=== PATIENT | female | born 1940 | race African-American/Black ===

== ENCOUNTER 2020-05-23 18:50 | Inpatient (IN) | payer OTHER, MEDICAID, SELFPAY ==
[2020-05-23] VITALS (8 sets, daily range): BP systolic 86–107; BP diastolic 47–66; PULSE 87–100; RESP 12–20; TEMP 36.6–37.2; O2SAT 93–99; BMI 35.7
--- NOTE | 2020-05-23 19:01 | ED_ITS ---
HPI - Syncope General Chief Complaint: Upper Respiratory Symptoms Stated Complaint: syncopal episode Time Seen by Provider: 05/23/20 19:33 Source: EMS Mode of arrival: EMS History of Present Illness HPI narrative: 80-year-old female presents from [facility] past medical history of hypothyroidism, hypertension, anemia, depression, hemorrhoids and constipation, cognitive impairment, dementia, erosive gastritis, and insomnia presents for syncopal episode. Per nursing report says the resident was found on her flopped over, stated she was sitting in her chair about to eat dinner and became dizzy. Patient reported to the nurse that she fainted while she was in her chair, when she woke up she transferred herself to her bed or nursing found her to be stable. She was noted to not be at her baseline mental status. She was sent in to the emergency department for evaluation for suspected syncopal episode. Patient is DNR DNI, is able to answer questions at time, nose with the date is and where she is. She does report feeling short of breath since Tuesday, denies fevers and chills, chest pain or pressure, palpitations, abdominal pain, abdominal distention, dysuria and edema. MD complaint: loss of consciousness and felt faint Onset (ago): hour(s) (Within the hour of arrival) -: second(s) Prodromal symptoms: none Witnessed: No Context: at rest Injuries sustained associated with event: none Current symptoms: none Treatments prior to arrival: none Related Data Home Medications Medication Instructions Recorded Confirmed cholecalciferol (vitamin D3) 25 mcg PO DAILY 05/23/20 05/23/20 [Vitamin D3] docusate sodium [Colace] 100 mg PO BID 05/23/20 05/23/20 hydrochlorothiazide 25 mg PO DAILY 05/23/20 05/23/20 levothyroxine 50 mcg PO DAILY 05/23/20 05/23/20 lisinopril 20 mg PO DAILY 05/23/20 05/23/20 metoprolol tartrate [Lopressor] 100 mg PO BID 05/23/20 05/23/20 pantoprazole 20 mg PO DAILY 05/23/20 05/23/20 polyvinyl alcohol [Artificial 1 drp OPHTHALMIC (EYE) BID 05/23/20 05/23/20 Tears (polyvin alc)] polyvinyl alcohol [Artificial 1 drp OPHTHALMIC (EYE) TID PRN 05/23/20 05/23/20 Tears (polyvin alc)] simvastatin 10 mg PO BEDTIME 05/23/20 05/23/20 trazodone 50 mg PO BEDTIME 05/23/20 05/23/20 Allergies Allergy/AdvReac Type Severity Reaction Status Date / Time From CELEXA Allergy Unknown UNKNOWN Uncoded 02/28/20 18:03 Review of Systems Review of Systems: Constitutional: No Fever, No Chills ENT/Mouth: No Hoarseness, No sore throat, No Rhinorrhea Eyes: No Redness, No Discharge, No Vision Changes Cardiovascular: No Chest Pain, positive SOB, positive Dyspnea on Exertion, No Edema Respiratory: No Cough, No Sputum, no Wheezing, Gastrointestinal: No Nausea, No Vomiting, No Diarrhea, No abdominal Pain Genitourinary: No Dysuria, No Hematuria Musculoskeletal: No joint pain, No Myalgias Skin: No rash Neuro: No Weakness, No Numbness, No Headache Psych: No anxiety, depression Heme/Lymph: No Bruising, No Bleeding Endocrine: No Polyuria, No Polydipsia Yes all other systems are reviewed and are negative [facility] Past Medical History Attestation statement: The following information was validated with the patient. Source: old records reviewed and nursing notes reviewed Social History Social History Smoked in Last 30 Days: No Advance Directives: No Advance Directives Information Provided: Yes Physical Exam Vital Signs: Vital Signs: Last Vital Signs Temp 99.0 F 05/23/20 22:00 Pulse 87 05/23/20 23:27 Resp 16 05/23/20 23:27 BP 106/44 L 05/24/20 00:00 Pulse Ox 98 05/23/20 23:27 Body Mass Index 35.7 Appearance: Alert. Oriented X2. No acute distress. Eyes: Pupils equal, round and reactive to light. ENT: Pharynx normal. Neck: Normal inspection. Neck supple. CVS: Normal heart rate and rhythm. Pulses normal. Respiratory: No respiratory distress. Breath sounds normal. Abdomen: Soft and nontender. Skin: Skin warm and dry. Normal skin color. Normal skin turgor. Extremities: No lower extremity edema. Neuro: No motor deficit. No sensory deficit. Course Course Course Narrative: 80-year-old female presents for suspected syncopal episode, plan is to rule out ACS, infection, electrolyte abnormality, CBC, Chem 7, lactic acid, cultures, and urinalysis. At 10:15 p.m., Urinalysis positive for bacteria and leukocyte esterase. Plan of care is to admit for UTI sepsis. At 12:20 a.m. it was noted that her 2nd troponin was 354, discussion with hospitalist regarding care, call out to Dr. Arnold plan is to treat with Lovenox 1 mg/kg. Hospitalist updated. Reevaluation(s) Reevaluation #1: Labs drawn at this time. Multiple attempts, phlebotomy was needed for blood draw. Time: 20:32 Reevaluation #2: Lactic acid is elevated at 6.6, at this time we will start seps is fluids. Patient did receive 500 fluid bolus, received 300 mL of fluid on transit via EMS. Fluid resuscitation for 91.6 kg is 2800, has the remainder of 1500 mL of fluid to infuse. We do not have a source of infection at this time, discussion with dialysis technician for straight cath urinalysis this time. COVID and influenza negative. Time: 21:29 Consultations Consultation #1: Jose Eduardo Time: 22:15 MDM - Syncope Differential Diagnosis Differential diagnosis: Likely syncope due to orthostatic hypotension, vasovagal syncope, complete atrioventricular block and dehydration Medical Records Attestation: I reviewed the patient's medical records. Lab Data Attestation: I reviewed the patient's lab results. Result diagrams: 05/23/20 20:41 05/23/20 20:41 Labs: Lab Results 05/23/20 05/23/20 05/23/20 Range/Units 19:42 20:41 20:41 WBC 12.4 H (4.8-10.8) X10*3/uL RBC 3.71 L (4.20-5.50) X10*6/uL Hgb 10.0 L (12.0-16.0) g/dl Hct 33.4 L (37-47) % MCV 90.0 (80-98) fL MCH 27.0 (27.0-33.0) pg MCHC 29.9 L (31.0-35.0) g/dl RDW 15.9 (11.0-16.0) % Plt Count 140 L (160-400) X10*3/uL MPV 10.0 (9.4-12.3) fL Immature Gran % (Auto) 1.0 H (0.0-0.4) % Neut % (Auto) 79.1 H (45-73) % Lymph % (Auto) 13.5 L (20-40) % [place] % (Auto) 6.0 (2-11) % Eos % (Auto) 0.2 (0-4) % Baso % (Auto) 0.2 (0-2) % Lymph # (Auto) 1.7 (1.2-4.9) X10*3/uL [place] # (Auto) 0.8 (0.1-1.2) X10*3/uL Eos # (Auto) 0.0 (0.0-0.4) X10*3/uL Baso # (Auto) 0.0 (0.0-0.2) X10*3/uL Abs Immat Gran (auto) 0.12 H (0.00-0.03) X10*3/uL Absolute Neuts (auto) 9.8 H (2.0-8.3) X10*3/uL Absolute Nucleated RBC 0.000 (0.0-0.012) X10*3/uL Nucleated RBC % (auto) 0.0 (0.0-0.2) /100WBC Sodium 142 (135-145) mmol/L Potassium 4.2 (3.3-5.1) mmol/l Chloride 106 (96-108) mmol/L Carbon Dioxide 17 L (22-29) mmol/L Anion Gap 23 H (12-20) BUN 48 H (9-16) mg/dL Creatinine 2.26 H (0.5-1.4) mg/dL Estim Creat Clear Calc 20.9 Estimated GFR 21 Random Glucose 163 H (60-115) mg/dL Lactic Acid (0.5-2.0) mmol/L Calcium 8.9 (8.4-10.2) mg/dL Troponin I High Sens (<3.5-17.0) ng/L Urine Color Urine Appearance Urine pH (5.0-8.0) Ur Specific [place] (1.005-1.025) Urine Protein (NEG-TRACE) MG/DL Urine Glucose (UA) (NEG) MG/DL Urine Ketones (NEG) MG/DL Urine Blood (NEG) Urine Nitrite (NEG) Ur Leukocyte Esterase (NEG) Urine RBC (0) /HPF Urine WBC (0-4) /HPF Ur Squamous Epith Cells /LPF Urine Bacteria /LPF Coronavirus (PCR) NEGATIVE (Negative) Influenza Type A (PCR) NEGATIVE (Negative) Influenza Type B (PCR) NEGATIVE (Negative) RSV RNA Qual (PCR) NEGATIVE (Negative) 05/23/20 05/23/20 05/23/20 Range/Units 20:41 20:41 21:37 WBC (4.8-10.8) X10*3/uL RBC (4.20-5.50) X10*6/uL Hgb (12.0-16.0) g/dl Hct (37-47) % MCV (80-98) fL MCH (27.0-33.0) pg MCHC (31.0-35.0) g/dl RDW (11.0-16.0) % Plt Count (160-400) X10*3/uL MPV (9.4-12.3) fL Immature Gran % (Auto) (0.0-0.4) % Neut % (Auto) (45-73) % Lymph % (Auto) (20-40) % [place] % (Auto) (2-11) % Eos % (Auto) (0-4) % Baso % (Auto) (0-2) % Lymph # (Auto) (1.2-4.9) X10*3/uL [place] # (Auto) (0.1-1.2) X10*3/uL Eos # (Auto) (0.0-0.4) X10*3/uL Baso # (Auto) (0.0-0.2) X10*3/uL Abs Immat Gran (auto) (0.00-0.03) X10*3/uL Absolute Neuts (auto) (2.0-8.3) X10*3/uL Absolute Nucleated RBC (0.0-0.012) X10*3/uL Nucleated RBC % (auto) (0.0-0.2) /100WBC Sodium (135-145) mmol/L Potassium (3.3-5.1) mmol/l Chloride (96-108) mmol/L Carbon Dioxide (22-29) mmol/L Anion Gap (12-20) BUN (9-16) mg/dL Creatinine (0.5-1.4) mg/dL Estim Creat Clear Calc Estimated GFR Random Glucose (60-115) mg/dL Lactic Acid 6.6 H* (0.5-2.0) mmol/L Calcium (8.4-10.2) mg/dL Troponin I High Sens 155.7 H (<3.5-17.0) ng/L Urine Color YELLOW Urine Appearance HAZY Urine pH 5.5 (5.0-8.0) Ur Specific [place] 1.025 (1.005-1.025) Urine Protein 1+ H (NEG-TRACE) MG/DL Urine Glucose (UA) NEG (NEG) MG/DL Urine Ketones NEG (NEG) MG/DL Urine Blood 1+ H (NEG) Urine Nitrite NEG (NEG) Ur Leukocyte Esterase TRACE H (NEG) Urine RBC 0-2 (0) /HPF Urine WBC 0-2 (0-4) /HPF Ur Squamous Epith Cells TRACE /LPF Urine Bacteria 4+ /LPF Coronavirus (PCR) (Negative) Influenza Type A (PCR) (Negative) Influenza Type B (PCR) (Negative) RSV RNA Qual (PCR) (Negative) Imaging Data Chest x-ray: Attestation: I personally reviewed and interpreted this imaging study as follows: Radiologist's impression: Blood Pressure : / mmHG Vent. Rate : 110 BPM Atrial Rate : 110 BPM P-R Int : 150 ms QRS Dur : 080 ms QT Int : 360 ms P-R-T Axes : 041 -28 -35 degrees QTc Int : 487 ms Sinus tachycardia with occasional Premature ventricular complexes Low voltage QRS Cannot rule out Anterior infarct , age undetermined Abnormal ECG When compared with ECG of 19-JUN-2010 15:07, Significant changes have occurred ECG Data ECG interpretation date: 05/23/20 ECG interpretation time: 19:26 Prior ECG tracings: available for review Interpretation: Blood Pressure : / mmHG Vent. Rate : 110 BPM Atrial Rate : 110 BPM P-R Int : 150 ms QRS Dur : 080 ms QT Int : 360 ms P-R-T Axes : 041 -28 -35 degrees QTc Int : 487 ms Sinus tachycardia with occasional Premature ventricular complexes Low voltage QRS Cannot rule out Anterior infarct , age undetermined Abnormal ECG When compared with ECG of 19-JUN-2010 15:07, Significant changes have occurred Critical Care Time Critical Care Time Critical Care Time: Yes Total Critical Care Time: 65 Attestation: I have personally provided critical care time exclusive of time spent on separately billable procedures. Time includes review of laboratory data, radiology results, discussion with consultants, and monitoring for potential decompensation. Interventions were performed as documented. Discharge Plan Discharge Clinical Impression: Acute UTI Sepsis Qualifiers: Sepsis type: sepsis due to unspecified organism Sepsis acute organ dysfunction status: with acute organ dysfunction Severe sepsis acute organ dysfunction type: acute renal failure Acute renal failure type: unspecified Severe sepsis shock status: without septic shock Qualified Code(s): A41.9 - Sepsis, unspecified organism Patient Disposition: Admitted As Inpatient
--- NOTE | 2020-05-23 19:01 | ECG_ITS ---
Test Reason : SYNCOPE Blood Pressure : / mmHG Vent. Rate : 110 BPM Atrial Rate : 110 BPM P-R Int : 150 ms QRS Dur : 080 ms QT Int : 360 ms P-R-T Axes : 041 -28 -35 degrees QTc Int : 487 ms Sinus tachycardia with occasional Premature ventricular complexes Low voltage QRS Cannot rule out Anterior infarct , age undetermined Diffuse ST-T changes, could be ischemia Abnormal ECG When compared with ECG of 19-JUN-2010 15:07, Significant changes have occurred Referred By: Kandace Vallecillo Electronically Signed By:MALKA LUNA
[2020-05-23] MEDS: 0.9 % Sodium Chloride 1,000 ML 500 ML IVCONT (19:20)
--- NOTE | 2020-05-23 20:00 | XR_ITS ---
EXAMINATION: XR CHEST CLINICAL INFORMATION: Syncope COMPARISON: None TECHNIQUE: Frontal portable view of the chest was obtained. 8:02 PM FINDINGS: Lungs are clear. No pulmonary vascular congestion. There is no pleural effusion. The heart size is normal. The cardiac and mediastinal contours are normal. There are calcifications of the thoracic aorta. There are multilevel degenerative changes of dorsal spine. XR/XR chest 1V IMPRESSION: Unremarkable examination.
[2020-05-23 20:33] LABS: Influenza A PCR NEGATIVE (Negative); Influenza B PCR NEGATIVE (Negative); Resp Syncy Virus RNA Qual PCR NEGATIVE (Negative); SARS COV2 PCR INHOUSE NEGATIVE (Negative)
[2020-05-23 20:49] LABS: Basophils Percent Auto 0.2 % (0-2); Eosinophils Percent Auto 0.2 % (0-4); Hematocrit 33.4 % (37-47); Imm Gran Abs Auto 0.12 X10*3/uL (0.00-0.03); Mean Corpuscular HGB Conc 29.9 g/dl (31.0-35.0); Neutrophils Percent Auto 79.1 % (45-73); PLT CLUMP 1; SCAN SMEAR FLAG 1
[2020-05-23 20:51] LABS: Lymphocytes Absolute Auto 1.7 X10*3/uL (1.2-4.9); Lymphocytes Percent Auto 13.5 % (20-40); MANUAL DIFF FLAG NO; Monocytes Absolute Auto 0.8 X10*3/uL (0.1-1.2); Neutrophils Absolute Auto 9.8 X10*3/uL (2.0-8.3); Platelet Count 140 X10*3/uL (160-400); Red Blood Count 3.71 X10*6/uL (4.20-5.50); Red Cell Distribution Width 15.9 % (11.0-16.0); White Blood Count 12.4 X10*3/uL (4.8-10.8)
[2020-05-23 21:27] LABS: Lactic Acid 6.6 mmol/L (0.5-2.0)
[2020-05-23] MEDS: 0.9 % Sodium Chloride 1,000 ML 999 ML IVCONT (21:32)
[2020-05-23 21:37] LABS: Anion Gap 23 (12-20); Blood Urea Nitrogen 48 mg/dL (9-16); Calcium 8.9 mg/dL (8.4-10.2); Carbon Dioxide 17 mmol/L (22-29); Chloride 106 mmol/L (96-108); Creatinine Clr Calc Pharmacy 20.9; Estimated Glomerular Filt Rate 21; Glucose Random 163 mg/dL (60-115); Potassium 4.2 mmol/l (3.3-5.1); Sodium 142 mmol/L (135-145); Troponin-I High Sensitivity 155.7 ng/L (<3.5-17.0)
[2020-05-23] MEDS: cefTRIAXone sodium 1 GM in 0.9 % Sodium Chloride 50 ML IV (21:43)
[2020-05-23 21:48] LABS: Glucose Urine UA NEG (NEG); Leukocyte Esterase Urine TRACE (NEG); Nitrite Urine NEG (NEG); PH 5.5 (5.0-8.0); Specific Gravity - Urine 1.025 (1.005-1.025); Urine Blood 1+ (NEG); Urine Ketones NEG (NEG); Urine Protein 1+ MG/DL (NEG-TRACE)
[2020-05-23 21:50] LABS: Appearance Urine HAZY; Color Urine YELLOW
[2020-05-23 21:59] LABS: Bacteria Urine 4+ /LPF; RBC Urine 0-2 /HPF (0); Squamous Epithelial Cell Urine TRACE /LPF; WBC Urine 0-2 /HPF (0-4)
[2020-05-23 22:48] LABS: Reflex Lactate? Lactic Acid Added
--- NOTE | 2020-05-23 23:11 | PC.NURSE ---
PT DIFFICULT LAB DRAW- REQUIRING PHLEBOTOMY TO ASSIST. WAITING FOR PHLEBOTOMY AT THIS TIME FOR REPEAT LACTIC AND TROP
[2020-05-24] VITALS (21 sets, daily range): BP systolic 89–139; BP diastolic 43–78; PULSE 68–87; RESP 16–21; TEMP 36.6–36.7; O2SAT 96–100
[2020-05-24 00:11] LABS: Troponin-I High Sensitivity 354.7 ng/L (<3.5-17.0)
[2020-05-24] MEDS: Enoxaparin Sodium 100 MG/ML SYRINGE 90 MG SUBCUT ×3 (00:55→23:14)
--- NOTE | 2020-05-24 01:52 | P.HPHOSP_ITS ---
History of Present Illness Date of Service: 05/23/20 Chief Complaint: Presyncope This is a very pleasant 80-year-old female hypothyroidism, hypertension, who presents to the hospital with complaints of weakness, chest tightness, mild shortness of breath. On my interview of the patient she reports that she has never been feeling so sick in her life before, she reports generally feeling sick since Tuesday, very vague about her symptoms but does endorse chest pain that centered mid 10, midsternal, pressure-like/tightness, nonradiating, severe, that is intermittent associated with mild shortness of breath. Patient also complaining of dizziness, reports that she had a fall at home due to her weakness, although denies any loss of consciousness, denies any palpitations prior to the fall, denies any change in vision or headache. Patient complaining of urinary frequency. Review of systems otherwise negative, Vitals are significant for temp of 97.8?, respiratory rate of 16, heart rate of 100, blood pressure of 98/57, satting 97% on room air Labs are significant for WBC count of 12.4, hemoglobin of 10, sodium of 142, potassium 4.2, anion gap 23, BUN of 48, creatinine of 2.261 (no previous to compare), lactic acid of 6.6, has to troponin of 155, followed by 2nd which was 354, UA that is positive for leukocyte Estrace and bacteria Chest x-ray negative Past medical history: Hypertension, hypothyroidism, hyperlipidemia Past surgical history: Denies Family history: Denies Social history: Comes from assisted living, denies tobacco alcohol or illicit drugs Review of Systems Review of Systems: Yes all other systems are reviewed and are negative [facility] Medical History Hyperlipidemia Hypertension Hypothyroidism Social History Smoked in Last 30 Days: No Advance Directives: No Advance Directives Information Provided: Yes Meds Allergies Allergy/AdvReac Type Severity Reaction Status Date / Time From CELEXA Allergy Unknown UNKNOWN Uncoded 02/28/20 18:03 Home Medications Medication Instructions Recorded Confirmed Type cholecalciferol (vitamin D3) 25 mcg PO DAILY 05/23/20 05/23/20 History [Vitamin D3] docusate sodium [Colace] 100 mg PO BID 05/23/20 05/23/20 History hydrochlorothiazide 25 mg PO DAILY 05/23/20 05/23/20 History levothyroxine 50 mcg PO DAILY 05/23/20 05/23/20 History lisinopril 20 mg PO DAILY 05/23/20 05/23/20 History metoprolol tartrate [Lopressor] 100 mg PO BID 05/23/20 05/23/20 History pantoprazole 20 mg PO DAILY 05/23/20 05/23/20 History polyvinyl alcohol [Artificial 1 drp OPHTHALMIC (EYE) BID 05/23/20 05/23/20 History Tears (polyvin alc)] polyvinyl alcohol [Artificial 1 drp OPHTHALMIC (EYE) TID PRN 05/23/20 05/23/20 History Tears (polyvin alc)] simvastatin 10 mg PO BEDTIME 05/23/20 05/23/20 History trazodone 50 mg PO BEDTIME 05/23/20 05/23/20 History Physical Exam Vital Signs and Narrative: Vital Signs: Last Vital Signs Temp 99.0 F 05/23/20 22:00 Pulse 80 05/24/20 01:42 Resp 16 05/24/20 01:42 BP 90/43 L 05/24/20 01:42 Pulse Ox 100 05/24/20 01:42 Body Mass Index 35.7 Const: General: cooperative and no acute distress Orientation/consciousness: patient oriented x3 Eyes: General: appearance normal, both eyes and all related structures Pupils: Equal, round and reactive pupils present Resp: Effort & Inspection: normal respiratory effort and able to speak in complete sentences Cardio: Rate: regular rate Rhythm: regular rhythm GI: Palpation (GI): Soft to palpation Auscultation: normal bowel sounds Skin: General skin exam: no rashes or lesions noted Neuro: General: patient oriented x3 Cranial nerves: Yes Equal, round and reactive pupils present Cognition (Neuro): normal cognition Extrem: General: Yes normal to inspection and Yes no pedal edema Results Labs CBC and Chem 7: 05/23/20 20:41 05/23/20 20:41 Labs: Laboratory Results - last 24 hr 05/23/20 05/23/20 05/23/20 19:42 20:41 20:41 MCV 90.0 MCH 27.0 MCHC 29.9 L RDW 15.9 Plt Count 140 L MPV 10.0 Immature Gran % (Auto) 1.0 H Neut % (Auto) 79.1 H Lymph % (Auto) 13.5 L [place] % (Auto) 6.0 Eos % (Auto) 0.2 Baso % (Auto) 0.2 Lymph # (Auto) 1.7 [place] # (Auto) 0.8 Eos # (Auto) 0.0 Baso # (Auto) 0.0 Abs Immat Gran (auto) 0.12 H Absolute Neuts (auto) 9.8 H Absolute Nucleated RBC 0.000 Nucleated RBC % (auto) 0.0 Anion Gap 23 H Estim Creat Clear Calc 20.9 Estimated GFR 21 Random Glucose 163 H Lactic Acid Lactic Acid Fup @ 2Hr Calcium 8.9 Troponin I High Sens Urine Color Urine Appearance Urine pH Ur Specific [place] Urine Protein Urine Glucose (UA) Urine Ketones Urine Blood Urine Nitrite Ur Leukocyte Esterase Urine RBC Urine WBC Ur Squamous Epith Cells Urine Bacteria Coronavirus (PCR) NEGATIVE Influenza Type A (PCR) NEGATIVE Influenza Type B (PCR) NEGATIVE RSV RNA Qual (PCR) NEGATIVE 05/23/20 05/23/20 05/23/20 20:41 20:41 21:37 MCV MCH MCHC RDW Plt Count MPV Immature Gran % (Auto) Neut % (Auto) Lymph % (Auto) [place] % (Auto) Eos % (Auto) Baso % (Auto) Lymph # (Auto) [place] # (Auto) Eos # (Auto) Baso # (Auto) Abs Immat Gran (auto) Absolute Neuts (auto) Absolute Nucleated RBC Nucleated RBC % (auto) Anion Gap Estim Creat Clear Calc Estimated GFR Random Glucose Lactic Acid 6.6 H* Lactic Acid Fup @ 2Hr Calcium Troponin I High Sens 155.7 H Urine Color YELLOW Urine Appearance HAZY Urine pH 5.5 Ur Specific [place] 1.025 Urine Protein 1+ H Urine Glucose (UA) NEG Urine Ketones NEG Urine Blood 1+ H Urine Nitrite NEG Ur Leukocyte Esterase TRACE H Urine RBC 0-2 Urine WBC 0-2 Ur Squamous Epith Cells TRACE Urine Bacteria 4+ Coronavirus (PCR) Influenza Type A (PCR) Influenza Type B (PCR) RSV RNA Qual (PCR) 05/23/20 05/23/20 23:37 23:37 MCV MCH MCHC RDW Plt Count MPV Immature Gran % (Auto) Neut % (Auto) Lymph % (Auto) [place] % (Auto) Eos % (Auto) Baso % (Auto) Lymph # (Auto) [place] # (Auto) Eos # (Auto) Baso # (Auto) Abs Immat Gran (auto) Absolute Neuts (auto) Absolute Nucleated RBC Nucleated RBC % (auto) Anion Gap Estim Creat Clear Calc Estimated GFR Random Glucose Lactic Acid Lactic Acid Fup @ 2Hr 4.0 H* Calcium Troponin I High Sens 354.7 H D Urine Color Urine Appearance Urine pH Ur Specific [place] Urine Protein Urine Glucose (UA) Urine Ketones Urine Blood Urine Nitrite Ur Leukocyte Esterase Urine RBC Urine WBC Ur Squamous Epith Cells Urine Bacteria Coronavirus (PCR) Influenza Type A (PCR) Influenza Type B (PCR) RSV RNA Qual (PCR) Imaging Radiologist's Impressions: Impressions Chest X-Ray 05/23/20 20:00 IMPRESSION: Unremarkable examination. Assessment and Plan (1) Sepsis: Qualifiers: Acute renal failure type: unspecified Sepsis acute organ dysfunction status: with acute organ dysfunction Sepsis type: sepsis due to unspecified organism Severe sepsis acute organ dysfunction type: acute renal failure Severe sepsis shock status: without septic shock Qualified Code(s): A41.9 - Sepsis, unspecified organism; R65.20 - Severe sepsis without septic shock; N17.9 - Acute kidney failure, unspecified Status: Acute (2) Acute UTI: Status: Acute (3) NSTEMI (non-ST elevated myocardial infarction): Status: Acute (4) KASSIE (acute kidney injury): Status: Acute (5) Hypertension: Qualifiers: Hypertension type: essential hypertension Qualified Code(s): I10 - Essential (primary) hypertension Status: Acute (6) Hyperlipidemia: Qualifiers: Hyperlipidemia type: unspecified Qualified Code(s): E78.5 - Hyperlipidemia, unspecified Status: Acute (7) Hypothyroidism: Qualifiers: Hypothyroidism type: unspecified Qualified Code(s): E03.9 - Hypothyroidism, unspecified Status: Acute This is an 80 year female with PMH as above found to have sepsis secondary to UTI as well as NSTEMI # sepsis - meets sepsis criteria based on heart rate, leukocytosis, patient afebrile, does have hypotension which improved after fluid resuscitation - on arrival had a lactic acid of 6.6 - sources most likely urine UA is positive, chest x-ray is negative Plan: - was started on ceftriaxone will continue - follow urine and blood cultures - IV fluids # UTI - UA showing bacteria and leukocyte Estrace -will start patient on ceftriaxone - IV fluids # NSTEMI - had chest tightness, no EKG changes, elevated troponin - case was discussed with Cardiology by ED PA - patient will be started on Lovenox Plan: - Lovenox, aspirin - will obtain echocardiogram, admit to telemetry, - further Cardiology recommendation appreciated # KASSIE - most likely prerenal secondary to sepsis and UTI - will start patient on IV fluids and follow BMP # hypothyroidism - continue levothyroxine # hypertension - will hold the lisinopril and hydrochlorothiazide in the setting of KASSIE # hyperlipidemia -continue statin DVT prophylaxis: Lovenox
[2020-05-24 07:34] LABS: Lactic Acid 2.2 mmol/L (0.5-2.0)
[2020-05-24 07:39] LABS: B Type Natriuretic Peptide 1331 pg/mL (<100)
[2020-05-24 08:49] LABS: Alanine Aminotransferase 40 U/L (0-31); Albumin Level 4.3 g/dL (3.5-5.0); Alkaline Phosphatase 109 U/L (39-117); Aspartate Amino Transferase 55 U/L (5-31); Bilirubin Direct 0.2 mg/dL (0.0-0.5); Bilirubin Total 0.4 mg/dL (0.0-1.0); Total Protein 8.1 g/dL (6.5-8.0)
[2020-05-24 09:01] LABS: Reflex Lactate? Lactic Acid Added
--- NOTE | 2020-05-24 11:06 | P.PNIM_ITS ---
Subjective Subjective Date of Service: 05/24/20 Interval History: sob Cardiovascular Cardiovascular: Reports no additional cardiovascular complaints Gastrointestinal Gastrointestinal: Reports no additional gastrointestinal complaints Physical Exam Vital Signs: Vital Signs: Last Vital Signs Temp 98.0 F 05/24/20 04:00 Pulse 79 05/24/20 09:38 Resp 16 05/24/20 09:38 BP 132/78 05/24/20 09:38 Pulse Ox 98 05/24/20 09:38 Body Mass Index 35.7 General: AO X 3, no acute distress Resp: CTA bilateral CVS: S1,S2,RRR GI: soft, non tender, non distended Neuro: motor grossly intact Psych: appropriate affect Objective Data Current Medications Generic Name Dose Route Start Last Admin Trade Name Freq PRN Reason Stop Dose Admin Acetaminophen 650 mg 05/24/20 11:04 Acetaminophen 325 Mg Tablet PO Q6H PRN Pain, Mild (Pain Scale 1-3) Artificial Tears 1 drop 05/24/20 11:04 Artificial Tears 15 Ml Drops EYE-BOTH BID BAUDILIO Artificial Tears 1 drop 05/24/20 11:04 Artificial Tears 15 Ml Drops EYE-BOTH TID PRN Dry Eye(S) Aspirin 324 mg 05/24/20 11:04 Aspirin 81 Mg Tab.Chew PO 05/24/20 11:05 ONCE ONE Docusate Sodium 100 mg 05/24/20 11:04 Docusate Sodium 100 Mg Capsule PO BID BAUDILIO Docusate Sodium 100 mg 05/24/20 11:04 Docusate Sodium 100 Mg Capsule PO DAILY PRN Constipation Enoxaparin Sodium 90 mg 05/24/20 00:30 05/24/20 00:55 Enoxaparin Sodium 100 Mg/Ml Syringe 1 mg/kg (90 mg) 90 mg SUBCUT Administration Q12H [facility] Ceftriaxone Sodium 1 gm/ 50 mls @ 100 mls/hr 05/24/20 11:04 Sodium Chloride IV Q24H [facility] Lactated Ringer's 1,000 mls @ 100 mls/hr 05/24/20 11:04 Lr IVCONT .Q10H [facility] Levothyroxine Sodium 50 mcg 05/24/20 11:04 Levothyroxine Sodium 50 Mcg Tablet PO DAILY [facility] Metoprolol Tartrate 100 mg 05/24/20 11:04 Metoprolol Tartrate 100 Mg Tablet PO BID [facility] Protocol Non-Formulary Medication 20 mg 05/24/20 11:04 Pantoprazole PO DAILY [facility] Non-Formulary Medication 10 mg 05/24/20 21:00 Simvastatin PO BEDTIME [facility]UD[facility] Ondansetron HCl 4 mg 05/24/20 11:04 Ondansetron Hcl 4 Mg/2 Ml Vial IVPUSH Q8H PRN Nausea and Vomiting Pharmacy Consult 1 each 05/23/20 22:44 Consult Rx Perform Med Rec MISCELLANE ONCE PRN Consult order Sodium Chloride 3 ml 05/24/20 11:04 0.9 % Sodium Chloride Flush 3 Ml Syringe IVFLUSH QSHIFT [facility] Trazodone HCl 50 mg 05/24/20 21:00 Trazodone Hcl 50 Mg Tablet PO BEDTIME [facility] Vitamin D 25 mcg 05/24/20 11:04 Cholecalciferol (Vitamin D3) 25 Mcg Tablet PO DAILY [facility] Labs CBC & Chem 7: 05/23/20 20:41 05/23/20 20:41 Microbiology Microbiology Results: Microbiology 05/23/20 21:49 Urine clean catch - Clean Catch Midstream Urine Culture - Preliminary No growth to date. Assessment and Plan (1) Sepsis: Status: Acute (2) Acute UTI: Status: Acute (3) NSTEMI (non-ST elevated myocardial infarction): Status: Acute (4) KASSIE (acute kidney injury): Status: Acute (5) Hypertension: Status: Acute (6) Hyperlipidemia: Status: Acute (7) Hypothyroidism: Status: Acute Assessment and Plan: 80F presented with chest pain and sob Severe sepsis present on admission due to possible UTI Continue ceftriaxone Follow-up cultures NSTEMI Lovenox, aspirin, echo, statin, cardiology eval Presumed Acute kidney injury Monitor Hypothyroid Synthroid Hyperlipidemia Statin
[2020-05-24] MEDS: Cholecalciferol (Vitamin D3) 25 MCG TABLET PO (11:29)
[2020-05-24] MEDS: Omeprazole 20 MG CAPSULE.DR PO (11:29)
[2020-05-24] MEDS: Aspirin 81 MG TAB.CHEW 324 MG PO (11:29)
[2020-05-24] MEDS: Levothyroxine Sodium 50 MCG TABLET PO (11:29)
[2020-05-24] MEDS: Metoprolol Tartrate 100 MG TABLET PO ×2 (11:29→21:38)
[2020-05-24] MEDS: Docusate Sodium 100 MG CAPSULE PO ×2 (11:29→21:38)
[2020-05-24] MEDS: cefTRIAXone sodium 1 GM in 0.9 % Sodium Chloride 50 ML IV (11:47)
[2020-05-24] MEDS: Lactated Ringers 1,000 ML 100 ML IVCONT ×2 (11:48→23:13)
[2020-05-24 15:13] LABS: Basophils Percent Auto 0.1 % (0-2); Eosinophils Percent Auto 0.4 % (0-4); Hematocrit 29.4 % (37-47); Hemoglobin 8.9 g/dl (12.0-16.0); Imm Gran Abs Auto 0.02 X10*3/uL (0.00-0.03); Imm Gran Pct Auto 0.3 % (0.0-0.4); Lymphocytes Percent Auto 29.1 % (20-40); MANUAL DIFF FLAG NO; Mean Corpuscular HGB Conc 30.3 g/dl (31.0-35.0); Mean Corpuscular Hemoglobin 26.9 pg (27.0-33.0); Mean Corpuscular Volume 88.8 fL (80-98); Mean Platelet Volume 10.1 fL (9.4-12.3); Monocytes Absolute Auto 0.5 X10*3/uL (0.1-1.2); Monocytes Percent Auto 7.6 % (2-11); Neutrophils Absolute Auto 4.3 X10*3/uL (2.0-8.3); Neutrophils Percent Auto 62.5 % (45-73); Platelet Count 127 X10*3/uL (160-400); Red Blood Count 3.31 X10*6/uL (4.20-5.50); White Blood Count 6.9 X10*3/uL (4.8-10.8)
--- NOTE | 2020-05-24 15:18 | MHC.CM.PN ---
PT REPORTS SHE LIVES AT [facility] AND IS INDEPENDENT WITH SELF CARE AND AMBULATES WITH A WALKER. PT REPORTS SHE GOES TO THE [employer] [facility] FOR HER PRIMARY AND BEHAVIORAL HEALTH BUT HAS NOT BEEN ABLE TO GO TO HER DAY PROGRAM SINCE AUGUST. SHE REPORTS WHEN SHE WAS GOING A VAN TOOK HER. PT REPORTS SHE DOES NOT HAVE A HCP AND DECLINES TO HAVE T/W CONTACT ANYONE. CM WILL CALL [facility] TO CONFIRM THERE IS NO HCP IMM DELIVERED CURRENT DC PLAN IS TO RETURN TO [facility] VIA CHAIR VAN
[2020-05-24 15:39] LABS: Anion Gap 18 (12-20); Blood Urea Nitrogen 46 mg/dL (9-16); Calcium 8.1 mg/dL (8.4-10.2); Carbon Dioxide 17 mmol/L (22-29); Chloride 113 mmol/L (96-108); Estimated Glomerular Filt Rate 28; Glucose Random 110 mg/dL (60-115); Potassium 4.5 mmol/l (3.3-5.1); Sodium 143 mmol/L (135-145)
[2020-05-24] MEDS: 0.9 % Sodium Chloride Flush 3 ML SYRINGE IVFLUSH (15:39)
[2020-05-24] MEDS: Artificial Tears 15 ML DROPS 1 DROP EYE-BOTH ×4 (15:40→21:47)
[2020-05-24 15:42] LABS: B Type Natriuretic Peptide 1158 pg/mL (<100)
[2020-05-24] MEDS: traZODone HCL 50 MG TABLET PO (21:38)
[2020-05-24] MEDS: Atorvastatin Calcium 10 MG TABLET PO (21:39)
[2020-05-25] VITALS (7 sets, daily range): BP systolic 123–164; BP diastolic 62–78; PULSE 69–86; RESP 18–20; TEMP 36.4–37.1; O2SAT 94–98
--- NOTE | 2020-05-25 | ECG_ITS ---
Test Reason : N-STEMI Blood Pressure : / mmHG Vent. Rate : 069 BPM Atrial Rate : 069 BPM P-R Int : 150 ms QRS Dur : 072 ms QT Int : 434 ms P-R-T Axes : 049 -32 -50 degrees QTc Int : 465 ms Normal sinus rhythm Left axis deviation ST & T wave abnormality, consider anterior ischemia Abnormal ECG When compared to the previous EKG of 23 may 2020, ST-T changes less prominent Referred By: Malka Luna Electronically Signed By:MALKA LUNA
[2020-05-25] MEDS: Omeprazole 20 MG CAPSULE.DR PO (05:42)
[2020-05-25 07:35] LABS: MANUAL DIFF FLAG NO
[2020-05-25 07:39] LABS: Basophils Percent Auto 0.1 % (0-2); Eosinophils Absolute Auto 0.1 X10*3/uL (0.0-0.4); Hemoglobin 7.9 g/dl (12.0-16.0); Imm Gran Abs Auto 0.02 X10*3/uL (0.00-0.03); Imm Gran Pct Auto 0.3 % (0.0-0.4); Lymphocytes Absolute Auto 1.9 X10*3/uL (1.2-4.9); Mean Corpuscular HGB Conc 30.4 g/dl (31.0-35.0); Mean Corpuscular Volume 88.7 fL (80-98); Mean Platelet Volume 9.9 fL (9.4-12.3); Monocytes Absolute Auto 0.5 X10*3/uL (0.1-1.2); Monocytes Percent Auto 7.4 % (2-11); Neutrophils Absolute Auto 4.3 X10*3/uL (2.0-8.3); Neutrophils Percent Auto 63.2 % (45-73); Platelet Count 138 X10*3/uL (160-400); Red Blood Count 2.93 X10*6/uL (4.20-5.50); Red Cell Distribution Width 15.9 % (11.0-16.0); White Blood Count 6.9 X10*3/uL (4.8-10.8)
[2020-05-25 08:04] LABS: Anion Gap 17 (12-20); Blood Urea Nitrogen 37 mg/dL (9-16); Calcium 8.2 mg/dL (8.4-10.2); Carbon Dioxide 17 mmol/L (22-29); Chloride 114 mmol/L (96-108); Creatinine Clr Calc Pharmacy 34.9; Estimated Glomerular Filt Rate 37; Glucose Fasting 97 mg/dL (60-99); Magnesium 2.1 mg/dL (1.6-2.6); Potassium 4.6 mmol/l (3.3-5.1); Sodium 143 mmol/L (135-145)
[2020-05-25] MEDS: Levothyroxine Sodium 50 MCG TABLET PO (08:22)
[2020-05-25] MEDS: Docusate Sodium 100 MG CAPSULE PO ×2 (08:22→20:59)
[2020-05-25] MEDS: Cholecalciferol (Vitamin D3) 25 MCG TABLET PO (08:22)
[2020-05-25] MEDS: Metoprolol Tartrate 100 MG TABLET PO ×2 (08:22→20:58)
[2020-05-25] MEDS: Artificial Tears 15 ML DROPS 1 DROP EYE-BOTH ×2 (08:36→21:04)
--- NOTE | 2020-05-25 10:19 | P.PNIM_ITS ---
Subjective Subjective Date of Service: 05/25/20 Interval History: feeling better Cardiovascular Cardiovascular: Reports no additional cardiovascular complaints Gastrointestinal Gastrointestinal: Reports no additional gastrointestinal complaints Physical Exam Vital Signs: Vital Signs: Last Vital Signs Temp 97.6 F 05/25/20 07:50 Pulse 72 05/25/20 08:22 Resp 18 05/25/20 07:50 BP 123/67 05/25/20 08:22 Pulse Ox 97 05/25/20 07:50 Body Mass Index 35.7 General: AO X 3, no acute distress Resp: CTA bilateral CVS: S1,S2,RRR GI: soft, non tender, non distended Neuro: motor grossly intact Psych: appropriate affect Objective Data Current Medications Generic Name Dose Route Start Last Admin Trade Name Freq PRN Reason Stop Dose Admin Acetaminophen 650 mg 05/24/20 11:04 Acetaminophen 325 Mg Tablet PO Q6H PRN Pain, Mild (Pain Scale 1-3) Artificial Tears 1 drop 05/24/20 11:04 05/25/20 08:36 Artificial Tears 15 Ml Drops EYE-BOTH 1 drop BID BAUDILIO Administration Artificial Tears 1 drop 05/24/20 11:04 05/24/20 21:45 Artificial Tears 15 Ml Drops EYE-BOTH 1 drop TID PRN Administration Dry Eye(S) Atorvastatin Calcium 10 mg 05/24/20 21:00 05/24/20 21:39 Atorvastatin Calcium 10 Mg Tablet PO 10 mg BEDTIME BAUDILIO Administration Docusate Sodium 100 mg 05/24/20 11:04 05/25/20 08:22 Docusate Sodium 100 Mg Capsule PO 100 mg BID BAUDILIO Administration Docusate Sodium 100 mg 05/24/20 11:04 Docusate Sodium 100 Mg Capsule PO DAILY PRN Constipation Enoxaparin Sodium 90 mg 05/24/20 00:30 05/24/20 23:14 Enoxaparin Sodium 100 Mg/Ml Syringe 1 mg/kg (90 mg) 90 mg SUBCUT Administration Q12H [facility] Ceftriaxone Sodium 1 gm/ 50 mls @ 100 mls/hr 05/24/20 11:04 05/24/20 12:30 Sodium Chloride IV Infused Q24H [facility] Infusion Levothyroxine Sodium 50 mcg 05/24/20 11:04 05/25/20 08:22 Levothyroxine Sodium 50 Mcg Tablet PO 50 mcg DAILY [facility] Administration Metoprolol Tartrate 100 mg 05/24/20 11:04 05/25/20 08:22 Metoprolol Tartrate 100 Mg Tablet PO 100 mg BID BAUDILIO Administration Protocol Omeprazole 20 mg 05/24/20 11:30 05/25/20 05:42 Omeprazole 20 Mg Capsule. PO 20 mg DAILY@0630 BAUDILIO Administration Ondansetron HCl 4 mg 05/24/20 11:04 Ondansetron Hcl 4 Mg/2 Ml Vial IVPUSH Q8H PRN Nausea and Vomiting Pharmacy Consult 1 each 05/23/20 22:44 Consult Rx Perform Med Rec MISCELLANE ONCE PRN Consult order Sodium Chloride 3 ml 05/24/20 11:04 05/25/20 08:22 0.9 % Sodium Chloride Flush 3 Ml Syringe IVFLUSH Not Given QSHIFT [facility] Trazodone HCl 50 mg 05/24/20 21:00 05/24/20 21:38 Trazodone Hcl 50 Mg Tablet PO 50 mg BEDTIME BAUDILIO Administration Vitamin D 25 mcg 05/24/20 11:04 05/25/20 08:22 Cholecalciferol (Vitamin D3) 25 Mcg Tablet PO 25 mcg DAILY BAUDILIO Administration Labs CBC & Chem 7: 05/25/20 06:58 05/25/20 06:58 Microbiology Microbiology Results: Microbiology 05/23/20 21:49 Urine clean catch - Clean Catch Midstream Urine Culture - Final 05/23/20 20:41 Blood - Venous Blood Culture - Preliminary No growth after 24 hours. 05/23/20 20:41 Blood - Venous Blood Culture - Preliminary No growth after 24 hours. Assessment and Plan (1) NSTEMI (non-ST elevated myocardial infarction): Status: Acute (2) KASSIE (acute kidney injury): Status: Acute (3) Hypertension: Status: Acute (4) Hyperlipidemia: Status: Acute (5) Hypothyroidism: Status: Acute Assessment and Plan: 80F presented with chest pain and sob Severe sepsis ruled out lactic acid due to hypotension, hypotension cause unclear at this time, has resolved with hydration NSTEMI Lovenox, aspirin, echo, statin, cardiology eval Acute kidney injury improved with ivf Hypothyroid Synthroid Hyperlipidemia Statin
[2020-05-25] MEDS: Enoxaparin Sodium 100 MG/ML SYRINGE 90 MG SUBCUT ×2 (12:49→23:53)
--- NOTE | 2020-05-25 13:03 | PM.CNCAR ---
History of Present Illness History of Present Illness Date of Service: 05/25/20 Chief complaint: SEPSIS Narrative: This is a cardiology consultation regarding elevated troponins. Patient does not have any known coronary disease, myocardial infarction. She has a history of hypertension, hypothyroidism. She describes a discomfort in the substernal area that felt like a pressure that started on tuesday. It was somewhat intermittent. Then on got worse. This led to her presentation and admission. Her troponins have been elevated since arrival. She was also thought to have a possible urinary tract infection. Otherwise patient does not have any exertional type chest pain or other cardiac symptoms at baseline. Review of Systems Review of Systems: Yes all other systems are reviewed and are negative Constitutional: Constitutional: Reports as per HPI Cardiovascular: Cardiovascular: Reports as per HPI, Denies no additional cardiovascular complaints, Denies Abdominal Cramping after Meds, Denies cool extremities, Denies painful fingertips, Reports chest pain, Denies Epigastric Pain, Denies epigastric discomfort, Denies diaphoresis, Denies pedal edema, Reports lightheadedness, Denies Loss of Consciousness, Denies palpitations and Reports dyspnea Respiratory: Respiratory: Reports dyspnea Endocrine: Endocrine: Denies palpitations PMFSH Past Medical History Medical History Hyperlipidemia Hypertension Hypothyroidism Family History Pertinent family history: Denies any significant family history Social History Social History Household Members: None Housing: Assisted Living Facility Do you presently have visiting nurse or other home services: Yes Smoking Status: Never smoker Smoked in Last 30 Days: No Use of substances other than those prescribed or required for medical reasons: No Currently Displaying Signs/Symptoms of Drug Intoxication Withdrawal: No Have you been hit, kicked, punched, or otherwise hurt by someone within the past year? If so, by whom?: No Do you feel safe in your current relationship?: Yes Is there a partner from a previous relationship who is making you feel unsafe now?: No Are you made to feel afraid or neglected: No Advance Directives: No Advance Directives Information Provided: Yes Do you have thoughts of harming others: None Do you have a plan to hurt others: No Plan Recently lost weight without trying: Unsure service: No Current occupational status: unemployed Meds Allergies Allergy/AdvReac Type Severity Reaction Status Date / Time From CELEXA Allergy Unknown UNKNOWN Uncoded 02/28/20 18:03 Home Medications Medication Instructions Recorded Confirmed Type cholecalciferol (vitamin D3) 25 mcg PO DAILY 05/23/20 05/23/20 History [Vitamin D3] docusate sodium [Colace] 100 mg PO BID 05/23/20 05/23/20 History hydrochlorothiazide 25 mg PO DAILY 05/23/20 05/23/20 History levothyroxine 50 mcg PO DAILY 05/23/20 05/23/20 History lisinopril 20 mg PO DAILY 05/23/20 05/23/20 History metoprolol tartrate [Lopressor] 100 mg PO BID 05/23/20 05/23/20 History pantoprazole 20 mg PO DAILY 05/23/20 05/23/20 History polyvinyl alcohol [Artificial 1 drp OPHTHALMIC (EYE) BID 05/23/20 05/23/20 History Tears (polyvin alc)] polyvinyl alcohol [Artificial 1 drp OPHTHALMIC (EYE) TID PRN 05/23/20 05/23/20 History Tears (polyvin alc)] simvastatin 10 mg PO BEDTIME 05/23/20 05/23/20 History trazodone 50 mg PO BEDTIME 05/23/20 05/23/20 History Physical Exam Vital Signs: Vital Signs: Last Vital Signs Temp 98.7 F 05/25/20 11:56 Pulse 71 05/25/20 11:56 Resp 20 05/25/20 11:56 BP 135/78 05/25/20 11:56 Pulse Ox 98 05/25/20 11:56 Body Mass Index 35.7 Const: General: cooperative, comfortable and no acute distress Orientation/consciousness: patient oriented x3 HENMT: Other: Unremarkable Neck: Neck: Yes normal visual inspection Chest: Chest palpation & inspection: normal inspection of the chest Resp: Auscultation: clear to auscultation bilaterally, no crackles and no wheezes Cardio: Jugular venous distension: no JVD Palpation: normal PMI Heart sounds: S1 normal heart sound present, S2 normal heart sound present, no gallops, no murmurs and no rubs GI: Palpation (GI): Soft to palpation Back/Spine/Pelvis: Other: unremarkable Skin: General skin exam: no rashes or lesions noted Neuro: General: patient oriented x3 Extrem: General: Yes no clubbing, cyanosis or edema Psych: Mental Status: mental status grossly normal Results Labs and Meds Result diagrams: 05/25/20 06:58 05/25/20 06:58 Lab results: Laboratory Results - last 24 hr 05/24/20 05/24/20 05/24/20 15:02 15:02 15:02 WBC 6.9 RBC 3.31 L Hgb 8.9 L Hct 29.4 L MCV 88.8 MCH 26.9 L MCHC 30.3 L RDW 16.0 Plt Count 127 L MPV 10.1 Immature Gran % (Auto) 0.3 Neut % (Auto) 62.5 Lymph % (Auto) 29.1 [place] % (Auto) 7.6 Eos % (Auto) 0.4 Baso % (Auto) 0.1 Lymph # (Auto) 2.0 [place] # (Auto) 0.5 Eos # (Auto) 0.0 Baso # (Auto) 0.0 Abs Immat Gran (auto) 0.02 Absolute Neuts (auto) 4.3 Absolute Nucleated RBC 0.000 Nucleated RBC % (auto) 0.0 Sodium 143 Potassium 4.5 Chloride 113 H Carbon Dioxide 17 L Anion Gap 18 BUN 46 H Creatinine 1.75 H Estim Creat Clear Calc 27.0 Estimated GFR 28 Random Glucose 110 Fasting Glucose Calcium 8.1 L D Magnesium B-Natriuretic Peptide 1158 H 05/25/20 05/25/20 06:58 06:58 WBC 6.9 RBC 2.93 L Hgb 7.9 L Hct 26.0 L MCV 88.7 MCH 27.0 MCHC 30.4 L RDW 15.9 Plt Count 138 L MPV 9.9 Immature Gran % (Auto) 0.3 Neut % (Auto) 63.2 Lymph % (Auto) 28.0 [place] % (Auto) 7.4 Eos % (Auto) 1.0 Baso % (Auto) 0.1 Lymph # (Auto) 1.9 [place] # (Auto) 0.5 Eos # (Auto) 0.1 Baso # (Auto) 0.0 Abs Immat Gran (auto) 0.02 Absolute Neuts (auto) 4.3 Absolute Nucleated RBC 0.000 Nucleated RBC % (auto) 0.0 Sodium 143 Potassium 4.6 Chloride 114 H Carbon Dioxide 17 L Anion Gap 17 BUN 37 H Creatinine 1.36 Estim Creat Clear Calc 34.9 Estimated GFR 37 Random Glucose Fasting Glucose 97 Calcium 8.2 L Magnesium 2.1 B-Natriuretic Peptide Assessment and Plan (1) NSTEMI (non-ST elevated myocardial infarction): Status: Acute Admission EKG showed sinus tachycardia at 110/Min; she had diffuse ST segment depression/T inversions somewhat diffusely. In the repeat EKG today, these changes seem much improved. Her troponins are abnormal in the NSTEMI range. Cardiac BNP is also elevated. Since her presenting symptom was actually chest discomfort, I am wondering if this is a type 1 NSTEMI as opposed type 2; but she also has ongoing ?Infection/UTI concerns. She also had renal insufficiency on arrival but that seems to be improved now. Anemia possibly from fluids. We can start with an echocardiogram tomorrow. Then need to decide between a stress test versus cardiac catheterization. Continue Lovenox. Continue beta-blockers, aspirin and statins. We will follow up with you.
[2020-05-25 14:33] LABS: Troponin-I High Sensitivity 84.2 ng/L (<3.5-17.0)
[2020-05-25] MEDS: 0.9 % Sodium Chloride Flush 3 ML SYRINGE IVFLUSH ×2 (15:20→23:53)
[2020-05-25] MEDS: traZODone HCL 50 MG TABLET PO (20:58)
[2020-05-25] MEDS: Atorvastatin Calcium 80 MG TABLET PO (20:59)
[2020-05-26] VITALS (9 sets, daily range): BP systolic 125–195; BP diastolic 80–103; PULSE 70–89; RESP 16–20; TEMP 36.7–37.5; O2SAT 92–94; BMI 35.7
--- NOTE | 2020-05-26 | CA_ITS ---
Acquisition Time: 2020-05-27 10:44:30 Total Exercise Time: 00:02:00 Test Indications: Substernal chest discomfort, HTN Medications: Protocol: LEXISCAN Max HR: 099 BPM 71% of Pred: 139 BPM Max BP: 172/098 mmHG Max Work Load: 1.0 METS Pharmacological stress test using Lexiscan. Pt tolerated well. Denies any anginal sx. EKG without any arrhythmias. Non-diagnostic for ischemia. Nuclear images to follow. Normotensive response to test. Test reviewed with Dr. Arnold. Referred By: Dc Toure Overread By: Darci Vazquez
[2020-05-26] MEDS: Omeprazole 20 MG CAPSULE.DR PO (05:50)
[2020-05-26 06:11] LABS: MANUAL DIFF FLAG NO
[2020-05-26 06:21] LABS: Basophils Percent Auto 0.4 % (0-2); Eosinophils Absolute Auto 0.1 X10*3/uL (0.0-0.4); Eosinophils Percent Auto 1.2 % (0-4); Hematocrit 25.7 % (37-47); Imm Gran Abs Auto 0.04 X10*3/uL (0.00-0.03); Imm Gran Pct Auto 0.6 % (0.0-0.4); Lymphocytes Absolute Auto 1.8 X10*3/uL (1.2-4.9); Mean Corpuscular HGB Conc 31.1 g/dl (31.0-35.0); Mean Corpuscular Hemoglobin 27.1 pg (27.0-33.0); Mean Corpuscular Volume 87.1 fL (80-98); Mean Platelet Volume 9.9 fL (9.4-12.3); Monocytes Absolute Auto 0.5 X10*3/uL (0.1-1.2); NRBC Pct Auto 0.3 /100WBC (0.0-0.2); Neutrophils Absolute Auto 4.4 X10*3/uL (2.0-8.3); Neutrophils Percent Auto 64.8 % (45-73); Platelet Count 165 X10*3/uL (160-400); Red Blood Count 2.95 X10*6/uL (4.20-5.50); Red Cell Distribution Width 16.2 % (11.0-16.0); White Blood Count 6.8 X10*3/uL (4.8-10.8)
[2020-05-26 06:42] LABS: Anion Gap 16 (12-20); Blood Urea Nitrogen 25 mg/dL (9-16); Calcium 8.5 mg/dL (8.4-10.2); Carbon Dioxide 19 mmol/L (22-29); Chloride 113 mmol/L (96-108); Creatinine Clr Calc Pharmacy 39.4; Estimated Glomerular Filt Rate 43; Glucose Fasting 99 mg/dL (60-99); Potassium 4.4 mmol/l (3.3-5.1); Sodium 144 mmol/L (135-145)
--- NOTE | 2020-05-26 10:11 | HO.PM.IMPN ---
Subjective Subjective Date of Service: 05/26/20 Interval History: no complaints Cardiovascular Cardiovascular: Reports no additional cardiovascular complaints Gastrointestinal Gastrointestinal: Reports no additional gastrointestinal complaints Physical Exam Vital Signs: Vital Signs: Last Vital Signs Temp 98.1 F 05/26/20 07:52 Pulse 74 05/26/20 07:52 Resp 20 05/26/20 07:52 BP 146/80 H 05/26/20 07:52 Pulse Ox 94 05/26/20 07:52 Body Mass Index 35.7 General: AO X 3, no acute distress Resp: CTA bilateral CVS: S1,S2,RRR GI: soft, non tender, non distended Neuro: motor grossly intact Psych: appropriate affect Objective Data Current Medications Generic Name Dose Route Start Last Admin Trade Name Freq PRN Reason Stop Dose Admin Acetaminophen 650 mg 05/24/20 11:04 Acetaminophen 325 Mg Tablet PO Q6H PRN Pain, Mild (Pain Scale 1-3) Artificial Tears 1 drop 05/24/20 11:04 05/25/20 21:04 Artificial Tears 15 Ml Drops EYE-BOTH 1 drop BID BAUDILIO Administration Artificial Tears 1 drop 05/24/20 11:04 05/24/20 21:45 Artificial Tears 15 Ml Drops EYE-BOTH 1 drop TID PRN Administration Dry Eye(S) Aspirin 81 mg 05/26/20 09:00 Aspirin 81 Mg Tab.Chew PO DAILY [facility] Atorvastatin Calcium 80 mg 05/25/20 21:00 05/25/20 20:59 Atorvastatin Calcium 80 Mg Tablet PO 80 mg BEDTIME BAUDILIO Administration Docusate Sodium 100 mg 05/24/20 11:04 05/25/20 20:59 Docusate Sodium 100 Mg Capsule PO 100 mg BID BAUDILIO Administration Docusate Sodium 100 mg 05/24/20 11:04 Docusate Sodium 100 Mg Capsule PO DAILY PRN Constipation Enoxaparin Sodium 90 mg 05/24/20 00:30 05/25/20 23:53 Enoxaparin Sodium 100 Mg/Ml Syringe 1 mg/kg (90 mg) 90 mg SUBCUT Administration Q12H [facility] Levothyroxine Sodium 50 mcg 05/24/20 11:04 05/25/20 08:22 Levothyroxine Sodium 50 Mcg Tablet PO 50 mcg DAILY BAUDILIO Administration Metoprolol Tartrate 100 mg 05/24/20 11:04 05/25/20 20:58 Metoprolol Tartrate 100 Mg Tablet PO 100 mg BID BAUDILIO Administration Protocol Omeprazole 20 mg 05/24/20 11:30 05/26/20 05:50 Omeprazole 20 Mg Capsule. PO 20 mg DAILY@0630 BAUDILIO Administration Ondansetron HCl 4 mg 05/24/20 11:04 Ondansetron Hcl 4 Mg/2 Ml Vial IVPUSH Q8H PRN Nausea and Vomiting Pharmacy Consult 1 each 05/23/20 22:44 Consult Rx Perform Med Rec MISCELLANE ONCE PRN Consult order Sodium Chloride 3 ml 05/24/20 11:04 05/25/20 23:53 0.9 % Sodium Chloride Flush 3 Ml Syringe IVFLUSH 3 ml QSHIFT [facility] Administration Trazodone HCl 50 mg 05/24/20 21:00 05/25/20 20:58 Trazodone Hcl 50 Mg Tablet PO 50 mg BEDTIME [facility]IO Administration Vitamin D 25 mcg 05/24/20 11:04 05/25/20 08:22 Cholecalciferol (Vitamin D3) 25 Mcg Tablet PO 25 mcg DAILY [facility]UDILIO Administration Labs CBC & Chem 7: 05/26/20 05:45 05/26/20 05:45 Microbiology Microbiology Results: Microbiology 05/23/20 20:41 Blood - Venous Blood Culture - Preliminary No growth after 48 hours. 05/23/20 20:41 Blood - Venous Blood Culture - Preliminary No growth after 48 hours. 05/23/20 21:49 Urine clean catch - Clean Catch Midstream Urine Culture - Final Assessment and Plan (1) NSTEMI (non-ST elevated myocardial infarction): Status: Acute (2) KASSIE (acute kidney injury): Status: Acute (3) Hypertension: Status: Acute (4) Hyperlipidemia: Status: Acute (5) Hypothyroidism: Status: Acute Assessment and Plan: 80F presented with chest pain and sob Severe sepsis ruled out lactic acid due to hypotension, hypotension cause unclear at this time, has resolved with hydration NSTEMI Lovenox, aspirin, echo, statin, cardiology to decide on stress vs cath Acute kidney injury improved with ivf Hypothyroid Synthroid Hyperlipidemia Statin
[2020-05-26] MEDS: 0.9 % Sodium Chloride Flush 3 ML SYRINGE IVFLUSH ×2 (10:49→18:09)
[2020-05-26] MEDS: Levothyroxine Sodium 50 MCG TABLET PO (10:50)
[2020-05-26] MEDS: Metoprolol Tartrate 100 MG TABLET PO ×2 (10:50→21:18)
[2020-05-26] MEDS: Cholecalciferol (Vitamin D3) 25 MCG TABLET PO (10:50)
[2020-05-26] MEDS: Docusate Sodium 100 MG CAPSULE PO ×2 (10:50→21:18)
[2020-05-26] MEDS: Aspirin 81 MG TAB.CHEW PO (10:50)
[2020-05-26] MEDS: Artificial Tears 15 ML DROPS 1 DROP EYE-BOTH ×3 (10:56→21:18)
--- NOTE | 2020-05-26 11:04 | CA_ITS ---
Transthoracic Echocardiogram Patient (Last, First, Middle): Erich Pickett, Gender: Female Date of : 1940 Age: 80 Procedure Date: 05/26/2020 Procedure Type: Transthoracic Echocardiogram [place] [facility] [place]: 160.02 cm Weight: 95.26 kg BSA: 1.97 m2 Heart Rate: bpm BP: 149 / 87 mmHg Reporter: Referring MD: Ceferino Whitt MD Symptoms: NSTEMI Study Quality: Technically Difficult ECG Rhythm: Sinus with extra beats Conclusions: - Normal left ventricular size and systolic function. - Moderately increased right ventricular cavity size. There is mild to moderately decreased right ventricular systolic function. - There is moderate to severe tricuspid valve regurgitation. Significantly elevated right atrial pressure. Severe pulmonary hypertension is present. - There is mild dilatation of the ascending aorta. Findings Procedure Information Contrast agent, definity, is being given per protocol without apparent complications. Left Ventricle Normal left ventricular size and systolic function. There is moderately increased left ventricular wall thickness. The visually estimated ejection fraction is between 60-65%. There is no evidence of regional wall motion abnormalities. There is abnormal septal motion with excessive respiratory change. Diastolic function is normal for age. Right Ventricle Moderately increased right ventricular cavity size. There is mild to moderately decreased right ventricular systolic function. Atria The left atrium is normal in size. Aortic Valve There is a normal trileaflet aortic valve. There is no aortic valve stenosis. There is mild aortic valve regurgitation. Mitral Valve Normal mitral valve structure and function. There is trace mitral valve regurgitation. There is no mitral valve stenosis. Pulmonic Valve The pulmonic valve is likely normal. Tricuspid Valve The tricuspid valve was not well visualized. There is moderate to severe tricuspid valve regurgitation. Significantly elevated right atrial pressure. Severe pulmonary hypertension is present. Great Vessels There is mild dilatation of the ascending aorta. The visualized portions of the pulmonary artery and branches are normal. Venous The inferior vena cava is dilated and collapses less than 50% with inspiration. Pericardium/Pleural There is no evidence of pericardial effusion. Prior Study Comparison No prior study available for comparison. Measurements 2D Linear Measurements IVSd: 1.26 0.6-0.9/0.6-1.0 cm LVIDd: 3.84 3.9-5.3/4.2-5.9 cm LVIDd Index: 1.95 2.4-3.2/2.2-3.1 cm/m2 LVIDs: 2.58 2.0-3.6 cm LVPWd: 1.30 0.7-1.1 cm Ao Root: 3.40 2.1-3.5 cm LA Diam: 3.10 2.7-3.8/3.0-4.0 cm LAIDs Index: 1.57 1.5-2.3 cm/m2 LV Mass: 213.74 67-162/88-224 g LV Mass Index: 108.50 43-95/49-115 g/m2 LVOT Diam: 2.10 3.0+(-)1.3 cm Mitral Valve MV Pk E: 0.86 MV PK A: 1.25 MV Decel Time: 173.00 E/A: 0.70 E'Lateral: 10.30 E'Medial: 7.25 E/E' Med: 11.80 E/E' Lat: 8.30 PHT: 51.00 MVA PHT: 4.31 Decel [place]: 4.98 Aortic Valve AoV Pk Wilfr[place]: 1.17 AoV Mn [place]: 0.74 AoV VTI: 0.27 AoV Pk Grad: 5.00 Aov Mn Grad: 3.00 MYNOR Cont.VTI: 2.68 LVOT LVOT Pk [place]: 0.86 LVOT Mn [place]: 0.50 LVOT VTI: 0.21 LVOT Pk Grad: 3.00 LVOT Mn Grad: 1.00 LVOT Diam: 2.10 LVOT Area: 3.46 Diastolic Function MV Pk E: 0.86 MV Pk A: 1.25 E/A: 0.70 E'Medial: 7.25 E/E' Med: 11.80 E' Laterial: 10.30 E/E' Lat: 8.30 Tricuspid Valve TR Pk Wilfrido: 3.46 TR Pk Grad: 48.00 RA Press: 15.00 RVSP: 63.00 Great Vessels Aorta Ao Root-2D: 3.40 2.0-3.7 cm Ao Asc: 3.60 2.1-3.4 cm Pulmonary Valve PV Pk Wilfr[place]: 0.79 Peak PV Grad: 2.00 Updated in Other Vendor System with Status of Final Dc Toure MD electronically signed on 05/26/2020 7:19:36 PM with status of Final
--- NOTE | 2020-05-26 11:46 | P.PNCA_ITS ---
Subjective Subjective Date of Service: 05/26/20 Interval history: She has no chest discomfort. No shortness of breath. She has been on Lovenox therapeutic dose. Blood pressure is elevated. Kidney function is improving. Review of Systems Review of Systems No chest pain or shortness of breath Yes all other systems are reviewed and are negative Physical Exam Vital Signs: Last Vital Signs Temp 98.1 F 05/26/20 07:52 Pulse 81 05/26/20 10:50 Resp 20 05/26/20 07:52 BP 187/87 H 05/26/20 10:50 Pulse Ox 94 05/26/20 07:52 Body Mass Index 35.7 GENERAL APPEARANCE: in no acute distress, frail. HEENT: unremarkable. HEAD: normocephalic, atraumatic. NECK/THYROID: no carotid bruit, no jugular venous distention. SKIN: no suspicious lesions, warm and dry. HEART: no murmurs, regular rate and rhythm, S1, S2 normal. LUNGS: clear to auscultation bilaterally. ABDOMEN: normal, bowel sounds present, soft, nontender, nondistended. EXTREMITIES: no clubbing, cyanosis, or edema. PERIPHERAL PULSES: equal. NEUROLOGIC: nonfocal, alert and oriented. PSYCH: mood/affect full range. Results Labs and Meds Result diagrams: 05/26/20 05:45 05/26/20 05:45 Lab results: Laboratory Results - last 24 hr 05/25/20 05/26/20 05/26/20 13:41 05:45 05:45 WBC 6.8 RBC 2.95 L Hgb 8.0 L Hct 25.7 L MCV 87.1 MCH 27.1 MCHC 31.1 RDW 16.2 H Plt Count 165 MPV 9.9 Immature Gran % (Auto) 0.6 H Neut % (Auto) 64.8 Lymph % (Auto) 26.0 [place] % (Auto) 7.0 Eos % (Auto) 1.2 Baso % (Auto) 0.4 Lymph # (Auto) 1.8 [place] # (Auto) 0.5 Eos # (Auto) 0.1 Baso # (Auto) 0.0 Abs Immat Gran (auto) 0.04 H Absolute Neuts (auto) 4.4 Absolute Nucleated RBC 0.020 H Nucleated RBC % (auto) 0.3 H Sodium 144 Potassium 4.4 Chloride 113 H Carbon Dioxide 19 L Anion Gap 16 BUN 25 H Creatinine 1.20 Estim Creat Clear Calc 39.4 Estimated GFR 43 Fasting Glucose 99 Calcium 8.5 Troponin I High Sens 84.2 H D Progress Note: A&P Assessment and plan (1) Hypertension: Status: Acute (2) NSTEMI (non-ST elevated myocardial infarction): Status: Acute (3) KASSIE (acute kidney injury): Status: Acute Assessment and Plan: Pleasant 80-year-old female who is presenting with chest discomfort. She ruled in for NSTEMI. She also was diagnosed with kidney injury and was hypotensive on admission which improved with IV fluids. She had lactic acidosis which has also improved. No obvious cause for her hypotension has been found. She is hypertensive now. I think we need to control blood pressure better. Her symptoms were quite concerning on admission. She is also anemic. She is saying she has been passing blood per rectum and thinks she has hemorrhoids. I had a discussion with her about cardiac catheterization versus conservative management. Currently she agrees for conservative management. I will check echocardiogram to assess wall motion abnormality and will do a Lexiscan. If her Lexiscan shows high-risk features then we will consider cathing her. Otherwise I think we should medically manage her given her frailty and anemia. Thank you for allowing me to participate in the care of your patient. Please feel free to contact me if you have any questions. Fall Risk Details Current Medications: Current Medications Generic Name Dose Route Start Last Admin Trade Name Freq PRN Reason Stop Dose Admin Acetaminophen 650 mg 05/24/20 11:04 Acetaminophen 325 Mg Tablet PO Q6H PRN Pain, Mild (Pain Scale 1-3) Amlodipine Besylate 5 mg 05/26/20 12:00 Amlodipine Besylate 5 Mg Tablet PO DAILY [facility] Protocol Artificial Tears 1 drop 05/24/20 11:04 05/26/20 10:58 Artificial Tears 15 Ml Drops EYE-BOTH 1 drop BID BAUDILIO Administration Artificial Tears 1 drop 05/24/20 11:04 05/26/20 10:56 Artificial Tears 15 Ml Drops EYE-BOTH 1 drop TID PRN Administration Dry Eye(S) Aspirin 81 mg 05/26/20 09:00 05/26/20 10:50 Aspirin 81 Mg Tab.Chew PO 81 mg DAILY BAUDILIO Administration Atorvastatin Calcium 80 mg 05/25/20 21:00 05/25/20 20:59 Atorvastatin Calcium 80 Mg Tablet PO 80 mg BEDTIME BAUDILIO Administration Docusate Sodium 100 mg 05/24/20 11:04 05/26/20 10:50 Docusate Sodium 100 Mg Capsule PO 100 mg BID BAUDILIO Administration Docusate Sodium 100 mg 05/24/20 11:04 Docusate Sodium 100 Mg Capsule PO DAILY PRN Constipation Enoxaparin Sodium 90 mg 05/24/20 00:30 05/25/20 23:53 Enoxaparin Sodium 100 Mg/Ml Syringe 1 mg/kg (90 mg) 90 mg SUBCUT Administration Q12H [facility] Levothyroxine Sodium 50 mcg 05/24/20 11:04 05/26/20 10:50 Levothyroxine Sodium 50 Mcg Tablet PO 50 mcg DAILY BAUDILIO Administration Metoprolol Tartrate 100 mg 05/24/20 11:04 05/26/20 10:50 Metoprolol Tartrate 100 Mg Tablet PO 100 mg BID BAUDILIO Administration Protocol Omeprazole 20 mg 05/24/20 11:30 05/26/20 05:50 Omeprazole 20 Mg Capsule.Dr PO 20 mg DAILY@0630 BAUDILIO Administration Ondansetron HCl 4 mg 05/24/20 11:04 Ondansetron Hcl 4 Mg/2 Ml Vial IVPUSH Q8H PRN Nausea and Vomiting Pharmacy Consult 1 each 05/23/20 22:44 Consult Rx Perform Med Rec MISCELLANE ONCE PRN Consult order Sodium Chloride 3 ml 05/24/20 11:04 05/26/20 10:49 0.9 % Sodium Chloride Flush 3 Ml Syringe IVFLUSH 3 ml QSHIFT BAUDILIO Administration Trazodone HCl 50 mg 05/24/20 21:00 05/25/20 20:58 Trazodone Hcl 50 Mg Tablet PO 50 mg BEDTIME BAUDILIO Administration Vitamin D 25 mcg 05/24/20 11:04 05/26/20 10:50 Cholecalciferol (Vitamin D3) 25 Mcg Tablet PO 25 mcg DAILY BAUDILIO Administration Time Spent With Patient Time: Total time spent is greater than 50% in coordination of care (as documented) at patient's floor/unit and/or counseling patient: Time with patient: 15 - 24 minutes
--- NOTE | 2020-05-26 14:00 | NM_ITS ---
Myocardial perfusion study Indication: NSTEMI Technique: The patient was brought in for a Lexiscan perfusion study on 05/27/2020. Patient performed low-level exercise and was injected 0.4 mg of Lexiscan intravenously. Within a minute of injection, 25 mCi of sestamibi was given intravenously. Images were obtained using the SPECT gamma camera interlaced with the gating device. Images were obtained in supine position. Resting perfusion study was performed on 05/26/2020. Patient was administered 25 mCi of sestamibi intravenously at rest. Images were then obtained in supine position. Images obtained with and without CT attenuation. Total DLP 99 mGy-cm. Images were processed with the software and compared side to side in short axis, horizontal long axis and vertical long axis views. Findings: The stress perfusion study showed non attenuated images showed mildly reduced uptake in the distal lateral wall of the LV myocardium. Remainder of the LV myocardium is normally perfused. Attenuation corrected images show minimally reduced uptake in the apex of the LV myocardium.. The gated study shows normal LV systolic function with calculated LVEF of 67%. LV cavity is normal in size. The gated study shows normal systolic wall thickening and contraction of segments. Resting study shows non attenuated images show mildly reduced uptake in the inferior wall of the LV myocardium. Attenuation corrected images show no change in perfusion pattern stress perfusion study. Gating at rest reveals normal systolic wall motion with ejection fraction at 73%. The findings are consistent with no reversible defect suggestive of ischemia.. NM/NM eugenia perf SPECT rest & str Impression: 1. Myocardial perfusion imaging study shows likely normal myocardial perfusion 2. Gated LVEF is 67% 3. Transient ischemic dilatation not present EKG is nondiagnostic for ischemia
--- NOTE | 2020-05-26 14:51 | MHC.CM.PN ---
per rounds pt needs to be cleared by cardiology prior to dc dc plan retuirn to [facility] walk[facility]
[2020-05-26] MEDS: amLODIPine Besylate 5 MG TABLET PO (16:21)
[2020-05-26] MEDS: Enoxaparin Sodium 100 MG/ML SYRINGE 90 MG SUBCUT (16:22)
[2020-05-26] MEDS: traZODone HCL 50 MG TABLET PO (21:18)
[2020-05-26] MEDS: Atorvastatin Calcium 80 MG TABLET PO (21:18)
[2020-05-27] VITALS (7 sets, daily range): BP systolic 161–193; BP diastolic 87–98; PULSE 68–102; RESP 18–20; TEMP 36.8–37.3; O2SAT 92–97
--- NOTE | 2020-05-27 | CT_ITS ---
EXAMINATION: CT ANGIOGRAM OF THE CHEST WITH AND WITHOUT CONTRAST (CT PULMONARY ANGIOGRAM FOR PE) CLINICAL INFORMATION: Shortness of breath. Right ventricular strain COMPARISON: 05/23/2020 TECHNIQUE: Prior to contrast administration, noncontrast localization images were obtained. Subsequently, multidetector volumetric imaging was performed from the thoracic inlet to below the diaphragms following the administration of 60 mL Omnipaque 350 intravenous contrast. No contrast reaction reported Sagittal, coronal, and MIP oblique sagittal reformatted images were obtained on the CT workstation, uploaded to PACS, and reviewed. This CT examination was performed using dose optimization techniques as appropriate, variously including the following: *Automated exposure control *Adjustment of mA and/or kV according to patient size (this includes techniques or standardized protocols for targeted exams where dose is matched to indication/reason for exam; i.e. extremities or head) *Use of iterative reconstruction technique Total exam dose-length product 324 mGy-cm FINDINGS: QUALITY OF STUDY/CONTRAST BOLUS: Satisfactory. PULMONARY ARTERIES: There are bilateral pulmonary pulmonary emboli. There is a central right embolus in the right pulmonary artery, expanding the right interlobar pulmonary artery and extending into the branches of the right middle and lower lobes. There may be slight extension into the right upper lobe branches proximally. On the left, there is thrombus straddling the bifurcation of the left pulmonary artery with thrombus extending into the left lower, to a greater degree than the left upper lobe. Overall moderate to high clot burden. THORACIC AORTA: No aneurysm or dissection. LUNG: Motion artifact limits evaluation. There is some patchy groundglass opacity most notable in the left lower lobe. There is some left greater than right bibasilar atelectasis. PLEURA: Small bilateral pleural effusions. MEDIASTINUM: The right atrium is enlarged. No hilar or mediastinal lymphadenopathy. No septal bowing. CHEST WALL/AXILLA: No axillary or internal mammary lymphadenopathy. OSSEOUS STRUCTURES: No acute or suspicious osseous abnormality. UPPER ABDOMEN: No adrenal mass. There is reflux of contrast into the hepatic veins consistent with elevated right heart pressures. CT/CT angio chest PE protocol IMPRESSION: Bilateral pulmonary emboli, as described above. There is a central right pulmonary embolus involving the right pulmonary artery and extending into the interlobar pulmonary artery. Overall moderate to high clot burden. There is reflux of contrast into the hepatic veins and enlargement of the right atrium consistent with right heart strain. This critical result was discussed with the covering hospitalist Dr. Pablito MCLEAN by telephone at 05/27/2020 6:59 PM and it was ascertained that the content and urgency of the report was understood at the time of direct communication.
[2020-05-27] MEDS: Enoxaparin Sodium 100 MG/ML SYRINGE 90 MG SUBCUT ×2 (01:13→12:58)
[2020-05-27] MEDS: 0.9 % Sodium Chloride Flush 3 ML SYRINGE IVFLUSH ×4 (01:13→20:23)
[2020-05-27] MEDS: Omeprazole 20 MG CAPSULE.DR PO (06:14)
[2020-05-27 06:17] LABS: MANUAL DIFF FLAG NO
[2020-05-27 06:22] LABS: Basophils Percent Auto 0.4 % (0-2); Eosinophils Percent Auto 0.1 % (0-4); Hematocrit 30.5 % (37-47); Hemoglobin 9.4 g/dl (12.0-16.0); Imm Gran Abs Auto 0.04 X10*3/uL (0.00-0.03); Imm Gran Pct Auto 0.5 % (0.0-0.4); Lymphocytes Absolute Auto 1.3 X10*3/uL (1.2-4.9); Lymphocytes Percent Auto 16.3 % (20-40); Mean Corpuscular HGB Conc 30.8 g/dl (31.0-35.0); Mean Corpuscular Hemoglobin 27.1 pg (27.0-33.0); Mean Corpuscular Volume 87.9 fL (80-98); Monocytes Absolute Auto 0.5 X10*3/uL (0.1-1.2); Monocytes Percent Auto 6.8 % (2-11); NRBC Pct Auto 0.6 /100WBC (0.0-0.2); Neutrophils Absolute Auto 5.9 X10*3/uL (2.0-8.3); Neutrophils Percent Auto 75.9 % (45-73); Platelet Count 206 X10*3/uL (160-400); Red Blood Count 3.47 X10*6/uL (4.20-5.50); Red Cell Distribution Width 16.2 % (11.0-16.0); White Blood Count 7.8 X10*3/uL (4.8-10.8)
[2020-05-27 06:42] LABS: Anion Gap 17 (12-20); Blood Urea Nitrogen 22 mg/dL (9-16); Calcium 8.6 mg/dL (8.4-10.2); Carbon Dioxide 19 mmol/L (22-29); Chloride 113 mmol/L (96-108); Creatinine Clr Calc Pharmacy 43.4; Estimated Glomerular Filt Rate 48; Glucose Fasting 115 mg/dL (60-99); Potassium 4.2 mmol/l (3.3-5.1); Sodium 145 mmol/L (135-145)
--- NOTE | 2020-05-27 07:35 | PC.NURSE ---
7P-7A; BLOOD PRESSURE ELEVATED 178/92, HR 77. PATIENT IS ON DAILY NORVASC 5 MG PO AND LOPRESSOR [address] PAULINO BREWER NOTIFIED REGARDING ELEVATED BLOOD PRESSURE. PER MD, CONTINUE TO MONITOR AT THIS TIME.
[2020-05-27] MEDS: Levothyroxine Sodium 50 MCG TABLET PO (08:53)
[2020-05-27] MEDS: amLODIPine Besylate 5 MG TABLET PO (08:53)
[2020-05-27] MEDS: Aspirin 81 MG TAB.CHEW PO (08:53)
[2020-05-27] MEDS: Docusate Sodium 100 MG CAPSULE PO ×2 (08:54→20:21)
[2020-05-27] MEDS: Metoprolol Tartrate 100 MG TABLET PO ×2 (08:54→20:22)
[2020-05-27] MEDS: Cholecalciferol (Vitamin D3) 25 MCG TABLET PO (08:54)
--- NOTE | 2020-05-27 09:33 | P.PNCA_ITS ---
Subjective Subjective Date of Service: 05/27/20 Principal diagnosis: NSTEMI Interval history: Cardiology follow up for NSTEMI. Today she reports feeling generally well. She is noted to have increased resp rate but denies feeling sob. No CP, palpitation. Slept well. Planning CTA chest and first portion of pharm nuclear stress test today. Review of Systems Review of Systems Yes all other systems are reviewed and are negative Constitutional: Denies frequent falls Reports system reviewed and no additional complaints, except as documented and Denies dizziness Cardiovascular: Denies chest pain, Denies chest pain at rest, Denies chest pain with activity, Denies Epigastric Pain, Denies syncope, Denies lightheadedness, Denies radiating jaw, neck or arm pain, Denies palpitations, Denies dyspnea on exertion and Denies orthopnea Respiratory: Denies chest congestion, Denies cough, Denies hemoptysis, Denies pain on inspiration and Denies dyspnea on exertion Gastrointestinal: Reports no additional gastrointestinal complaints and Denies abdominal pain Musculoskeletal: Reports no additional musculoskeletal complaints Denies Abnormal speech present, Denies confusion, Denies dizziness, Denies syncope and Denies frequent falls Psychiatric: Denies confusion Endocrine: Denies palpitations Physical Exam Vital Signs: Last Vital Signs Temp 98.2 F 05/27/20 07:49 Pulse 91 05/27/20 07:49 Resp 20 05/27/20 07:49 BP 164/90 H 05/27/20 07:49 Pulse Ox 93 05/27/20 07:49 Body Mass Index 35.7 Const Other: Alert, oriented, pleasant General: No confusion Orientation/consciousness: No confusion HENMT Head: Yes normal to inspection Neck Neck: Yes normal visual inspection and Yes no JVD Resp Effort & Inspection: normal respiratory effort, able to speak in complete sentences and not labored Auscultation: clear to auscultation bilaterally, no crackles, no rales, no rhonchi and no wheezes Cardio Palpation: normal PMI Rate: regular rate Rhythm: regular rhythm Heart sounds: S1 normal heart sound present and S2 normal heart sound present Peripheral pulses: Peripheral pulses 2+ throughout GI Inspection: Yes normal to inspection Skin General skin exam: no rashes or lesions noted Neuro General: No confusion Speech: No Abnormal speech present Extrem General: Yes normal to inspection and No edema Results Labs and Meds Result diagrams: 05/27/20 05:22 05/27/20 05:22 Lab results: Laboratory Results - last 24 hr 05/27/20 05/27/20 05:22 05:22 WBC 7.8 RBC 3.47 L Hgb 9.4 L Hct 30.5 L MCV 87.9 MCH 27.1 MCHC 30.8 L RDW 16.2 H Plt Count 206 MPV 10.0 Immature Gran % (Auto) 0.5 H Neut % (Auto) 75.9 H Lymph % (Auto) 16.3 L [place] % (Auto) 6.8 Eos % (Auto) 0.1 Baso % (Auto) 0.4 Lymph # (Auto) 1.3 [place] # (Auto) 0.5 Eos # (Auto) 0.0 Baso # (Auto) 0.0 Abs Immat Gran (auto) 0.04 H Absolute Neuts (auto) 5.9 Absolute Nucleated RBC 0.050 H Nucleated RBC % (auto) 0.6 H Sodium 145 Potassium 4.2 Chloride 113 H Carbon Dioxide 19 L Anion Gap 17 BUN 22 H Creatinine 1.09 Estim Creat Clear Calc 43.4 Estimated GFR 48 Fasting Glucose 115 H Calcium 8.6 Progress Note: A&P Assessment and plan (1) NSTEMI (non-ST elevated myocardial infarction): Status: Acute Assessment and Plan: Admit with CP. Ruled in for NSTEMI. Opted for conservative mgt. Has been on Lovenox for at least 48 hr. No recurrent reports of CP. Does have some mild sob. Echo shows normal EF, mod increase in RV size and mild to mod decrease in RV systolic function, mod to severe TR, severe pulm HTN. CTA of chest is planned for today to rule out PE. Has nuclear stress test ordered - await CTA results. If no PE, can proceed. Can stop Lovenox if no PE. Continue aspirin, atorvastatin, metoprolol, amlodipine. (2) Hypertension: Status: Acute Assessment and Plan: Has been running on high side this admission. Her home HCTZ and Lisinopril were stopped on admit due to KASSIE with creat 2.26. Amlodipine has been added. This am BP is 164/90 and she will be recieving her second dose. If BP remains elevated Amlodipine can be increased to 10mg daily. Ongoing BP monitoring. (3) KASSIE (acute kidney injury): Status: Acute Assessment and Plan: Elevated on admit, now normalized at 1.09. If needed, could consider restart of a lower dose Lisinopril with outpt BMP monitoring. (4) Hyperlipidemia: Status: Acute Assessment and Plan: [place] LDL goal < 70. Continue atorvastatin. Fall Risk Details Current Medications: Current Medications Generic Name Dose Route Start Last Admin Trade Name Freq PRN Reason Stop Dose Admin Acetaminophen 650 mg 05/24/20 11:04 Acetaminophen 325 Mg Tablet PO Q6H PRN Pain, Mild (Pain Scale 1-3) Amlodipine Besylate 5 mg 05/26/20 12:00 05/27/20 08:53 Amlodipine Besylate 5 Mg Tablet PO 5 mg DAILY BAUDILIO Administration Protocol Artificial Tears 1 drop 05/24/20 11:04 05/27/20 09:05 Artificial Tears 15 Ml Drops EYE-BOTH Not Given BID BAUDILIO Artificial Tears 1 drop 05/24/20 11:04 05/26/20 21:18 Artificial Tears 15 Ml Drops EYE-BOTH 1 drop TID PRN Administration Dry Eye(S) Aspirin 81 mg 05/26/20 09:00 05/27/20 08:53 Aspirin 81 Mg Tab.Chew PO 81 mg DAILY BAUDILIO Administration Atorvastatin Calcium 80 mg 05/25/20 21:00 05/26/20 21:18 Atorvastatin Calcium 80 Mg Tablet PO 80 mg BEDTIME BAUDILIO Administration Docusate Sodium 100 mg 05/24/20 11:04 05/27/20 08:54 Docusate Sodium 100 Mg Capsule PO 100 mg BID BAUDILIO Administration Docusate Sodium 100 mg 05/24/20 11:04 Docusate Sodium 100 Mg Capsule PO DAILY PRN Constipation Enoxaparin Sodium 90 mg 05/24/20 00:30 05/27/20 01:13 Enoxaparin Sodium 100 Mg/Ml Syringe 1 mg/kg (90 mg) 90 mg SUBCUT Administration Q12H BAUDILIO Levothyroxine Sodium 50 mcg 05/24/20 11:04 05/27/20 08:53 Levothyroxine Sodium 50 Mcg Tablet PO 50 mcg DAILY BAUDILIO Administration Metoprolol Tartrate 100 mg 05/24/20 11:04 05/27/20 08:54 Metoprolol Tartrate 100 Mg Tablet PO 100 mg BID BAUDILIO Administration Protocol Omeprazole 20 mg 05/24/20 11:30 05/27/20 06:14 Omeprazole 20 Mg Capsule.Dr PO 20 mg DAILY@0630 BAUDILIO Administration Ondansetron HCl 4 mg 05/24/20 11:04 Ondansetron Hcl 4 Mg/2 Ml Vial IVPUSH Q8H PRN Nausea and Vomiting Pharmacy Consult 1 each 05/23/20 22:44 Consult Rx Perform Med Rec MISCELLANE ONCE PRN Consult order Sodium Chloride 3 ml 05/24/20 11:04 05/27/20 08:54 0.9 % Sodium Chloride Flush 3 Ml Syringe IVFLUSH 3 ml QSHIFT BAUDILIO Administration Trazodone HCl 50 mg 05/24/20 21:00 05/26/20 21:18 Trazodone Hcl 50 Mg Tablet PO 50 mg BEDTIME BAUDILIO Administration Vitamin D 25 mcg 05/24/20 11:04 05/27/20 08:54 Cholecalciferol (Vitamin D3) 25 Mcg Tablet PO 25 mcg DAILY BAUDILIO Administration Time Spent With Patient Time: Total time spent is greater than 50% in coordination of care (as documented) at patient's floor/unit and/or counseling patient: Time with patient: 15 - 24 minutes
--- NOTE | 2020-05-27 11:21 | HO.PM.IMPN ---
Subjective Subjective Date of Service: 05/27/20 Interval History: Seen in f/u for NSTEMI. No chest pain Review of Systems Gen: no fever Resp: no sob, no cough CV: no chest, no MITTAL, no leg edema GI: No n/v, no abd pain Neuro: No confusion Physical Exam Vital Signs: Vital Signs: Last Vital Signs Temp 98.2 F 05/27/20 07:49 Pulse 91 05/27/20 07:49 Resp 20 05/27/20 07:49 BP 164/90 H 05/27/20 07:49 Pulse Ox 93 05/27/20 07:49 Body Mass Index 35.7 General: AO X 3, no acute distress Resp: CTA bilateral CVS: S1,S2,RRR GI: +BS, NT, no distention Skin: No rash Neuro: motor grossly intact Psych: appropriate affect Objective Data Current Medications Generic Name Dose Route Start Last Admin Trade Name Freq PRN Reason Stop Dose Admin Acetaminophen 650 mg 05/24/20 11:04 Acetaminophen 325 Mg Tablet PO Q6H PRN Pain, Mild (Pain Scale 1-3) Amlodipine Besylate 5 mg 05/26/20 12:00 05/27/20 08:53 Amlodipine Besylate 5 Mg Tablet PO 5 mg DAILY BAUDILIO Administration Protocol Artificial Tears 1 drop 05/24/20 11:04 05/27/20 09:05 Artificial Tears 15 Ml Drops EYE-BOTH Not Given BID [facility] Artificial Tears 1 drop 05/24/20 11:04 05/26/20 21:18 Artificial Tears 15 Ml Drops EYE-BOTH 1 drop TID PRN Administration Dry Eye(S) Aspirin 81 mg 05/26/20 09:00 05/27/20 08:53 Aspirin 81 Mg Tab.Chew PO 81 mg DAILY BAUDILIO Administration Atorvastatin Calcium 80 mg 05/25/20 21:00 05/26/20 21:18 Atorvastatin Calcium 80 Mg Tablet PO 80 mg BEDTIME BAUDILIO Administration Docusate Sodium 100 mg 05/24/20 11:04 05/27/20 08:54 Docusate Sodium 100 Mg Capsule PO 100 mg BID BAUDILIO Administration Docusate Sodium 100 mg 05/24/20 11:04 Docusate Sodium 100 Mg Capsule PO DAILY PRN Constipation Enoxaparin Sodium 90 mg 05/24/20 00:30 05/27/20 01:13 Enoxaparin Sodium 100 Mg/Ml Syringe 1 mg/kg (90 mg) 90 mg SUBCUT Administration Q12H [facility] Levothyroxine Sodium 50 mcg 05/24/20 11:04 05/27/20 08:53 Levothyroxine Sodium 50 Mcg Tablet PO 50 mcg DAILY BAUDILIO Administration Metoprolol Tartrate 100 mg 05/24/20 11:04 05/27/20 08:54 Metoprolol Tartrate 100 Mg Tablet PO 100 mg BID BAUDILIO Administration Protocol Omeprazole 20 mg 05/24/20 11:30 05/27/20 06:14 Omeprazole 20 Mg Capsule. PO 20 mg DAILY@0630 BAUDILIO Administration Ondansetron HCl 4 mg 05/24/20 11:04 Ondansetron Hcl 4 Mg/2 Ml Vial IVPUSH Q8H PRN Nausea and Vomiting Pharmacy Consult 1 each 05/23/20 22:44 Consult Rx Perform Med Rec MISCELLANE ONCE PRN Consult order Sodium Chloride 3 ml 05/24/20 11:04 05/27/20 08:54 0.9 % Sodium Chloride Flush 3 Ml Syringe IVFLUSH 3 ml QSHIFT BUADILIO Administration Trazodone HCl 50 mg 05/24/20 21:00 05/26/20 21:18 Trazodone Hcl 50 Mg Tablet PO 50 mg BEDTIME BAUDILIO Administration Vitamin D 25 mcg 05/24/20 11:04 05/27/20 08:54 Cholecalciferol (Vitamin D3) 25 Mcg Tablet PO 25 mcg DAILY BAUDILIO Administration Labs CBC & Chem 7: 05/27/20 05:22 05/27/20 05:22 Microbiology Microbiology Results: Microbiology 05/23/20 20:41 Blood - Venous Blood Culture - Preliminary No growth after 48 hours. 05/23/20 20:41 Blood - Venous Blood Culture - Preliminary No growth after 48 hours. 05/23/20 21:49 Urine clean catch - Clean Catch Midstream Urine Culture - Final Assessment and Plan (1) NSTEMI (non-ST elevated myocardial infarction): Status: Acute (2) KASSIE (acute kidney injury): Status: Acute (3) Hypertension: Status: Acute (4) Hyperlipidemia: Status: Acute (5) Hypothyroidism: Status: Acute Assessment and Plan: 80F presented with chest pain and sob-- NSTEMI-- Opted for conservative mgt. Has been on Lovenox for at least 48 hr. No recurrent reports of CP. Does have some mild sob. Echo shows normal EF, mod increase in RV size and mild to mod decrease in RV systolic function, mod to severe TR, severe pulm HTN. CTA of chest is planned for today to rule out PE. Has nuclear stress test ordered - await CTA results. If no PE, can proceed. Can stop Lovenox if no PE. Continue aspirin, atorvastatin, metoprolol, amlodipine. Severe sepsis ruled out lactic acid due to hypotension, hypotension cause unclear at this time, has resolved with hydration Acute kidney injury improved with ivf Hypothyroid Synthroid Hyperlipidemia Statin
--- NOTE | 2020-05-27 15:49 | PC.NURSE ---
pt needs IV for CT scan. Established 20 roula IV in right ac
[2020-05-27] MEDS: iohexoL 350 MG/ML 100 ML INFUS..BTL IV (18:21)
--- NOTE | 2020-05-27 19:06 | PM.EVENT ---
Event Note Date of Service: 05/27/20 Event Note: Cross Cover Note Called by radiology to report moderate to large PE. Pt already on anticoagulation. Clinically not in shock and due to age / co-morbities, unlikely to be a candidate for any invasive intervention. continue lovenox for now discussed the case with cardiology and in agreement with above
[2020-05-27] MEDS: traZODone HCL 50 MG TABLET PO (20:22)
[2020-05-27] MEDS: Atorvastatin Calcium 80 MG TABLET PO (20:23)
[2020-05-28] VITALS (15 sets, daily range): BP systolic 145–200; BP diastolic 74–102; PULSE 50–94; RESP 18–20; TEMP 36.4–37.2; O2SAT 96–99
[2020-05-28] MEDS: Enoxaparin Sodium 100 MG/ML SYRINGE 90 MG SUBCUT (00:25)
[2020-05-28] MEDS: hydrALAZINE HCl 20 MG/ML VIAL 10 MG IVPUSH ×2 (05:08→05:50)
[2020-05-28] MEDS: Omeprazole 20 MG CAPSULE.DR PO (05:20)
[2020-05-28] MEDS: Levothyroxine Sodium 50 MCG TABLET PO (05:20)
--- NOTE | 2020-05-28 07:36 | MHC.PIE ---
P: 187/102 left arm manual. Asymptomatic, confirmed w/ BP machine. HR 50, SB, frequently A-paced I: Dr Lee made aware of elevated BP. Patient on Norvasc & Lopressor during day. Dr Lee ordered 10mg IVP hydralazine, given?@ 0508.? P: BP went from 177 systolic?before giving med, to 198/86?@ 0535.? I: Dr Lee made aware - ordered additional 10mg IVP hydralazine, given at 0550. E: BP down to 182/95. HR remains 50, a-paced. Report given to oncoming day shift RN.
[2020-05-28] MEDS: Artificial Tears 15 ML DROPS 1 DROP EYE-BOTH ×2 (07:56→20:35)
[2020-05-28] MEDS: 0.9 % Sodium Chloride Flush 3 ML SYRINGE IVFLUSH ×3 (07:56→23:59)
[2020-05-28] MEDS: Aspirin 81 MG TAB.CHEW PO (07:56)
[2020-05-28] MEDS: Docusate Sodium 100 MG CAPSULE PO ×2 (07:57→20:25)
[2020-05-28] MEDS: Metoprolol Tartrate 100 MG TABLET PO (07:57)
[2020-05-28] MEDS: Cholecalciferol (Vitamin D3) 25 MCG TABLET PO (07:57)
[2020-05-28] MEDS: amLODIPine Besylate 5 MG TABLET PO ×2 (07:57→12:54)
--- NOTE | 2020-05-28 09:16 | P.PNIM_ITS ---
Subjective Subjective Date of Service: 05/28/20 Interval History: Seen in f/u for NSTEMI and sub massive PE. CT of chest yesterday show PE. No sob and no hypxia Review of Systems Gen: no fever Resp: no sob, no cough CV: no chest, no MITTAL, no leg edema GI: No n/v, no abd pain Neuro: No confusion Physical Exam Vital Signs: Vital Signs: Last Vital Signs Temp 97.5 F 05/28/20 07:17 Pulse 94 05/28/20 07:57 Resp 20 05/28/20 07:17 BP 168/92 H 05/28/20 07:57 Pulse Ox 97 05/28/20 07:17 Body Mass Index 35.7 Const: Other: General: AO X 3, no acute distress Resp: CTA bilateral CVS: S1,S2,RRR GI: +BS, NT, no distention Skin: No rash Neuro: motor grossly intact Psych: appropriate affect Objective Data Current Medications Generic Name Dose Route Start Last Admin Trade Name Freq PRN Reason Stop Dose Admin Acetaminophen 650 mg 05/24/20 11:04 Acetaminophen 325 Mg Tablet PO Q6H PRN Pain, Mild (Pain Scale 1-3) Amlodipine Besylate 5 mg 05/26/20 12:00 05/28/20 07:57 Amlodipine Besylate 5 Mg Tablet PO 5 mg DAILY BAUDILIO Administration Protocol Apixaban 10 mg 05/28/20 12:00 Apixaban 5 Mg Tablet PO BID BAUDILIO Artificial Tears 1 drop 05/24/20 11:04 05/28/20 07:56 Artificial Tears 15 Ml Drops EYE-BOTH 1 drop BID BAUDILIO Administration Artificial Tears 1 drop 05/24/20 11:04 05/26/20 21:18 Artificial Tears 15 Ml Drops EYE-BOTH 1 drop TID PRN Administration Dry Eye(S) Aspirin 81 mg 05/26/20 09:00 05/28/20 07:56 Aspirin 81 Mg Tab.Chew PO 81 mg DAILY BAUDILIO Administration Atorvastatin Calcium 80 mg 05/25/20 21:00 05/27/20 20:23 Atorvastatin Calcium 80 Mg Tablet PO 80 mg BEDTIME BAUDILIO Administration Docusate Sodium 100 mg 05/24/20 11:04 05/28/20 07:57 Docusate Sodium 100 Mg Capsule PO 100 mg BID BAUDILIO Administration Docusate Sodium 100 mg 05/24/20 11:04 Docusate Sodium 100 Mg Capsule PO DAILY PRN Constipation Levothyroxine Sodium 50 mcg 05/28/20 06:00 05/28/20 05:20 Levothyroxine Sodium 50 Mcg Tablet PO 50 mcg DAILY@0600 BAUDLIIO Administration Metoprolol Tartrate 100 mg 05/24/20 11:04 05/28/20 07:57 Metoprolol Tartrate 100 Mg Tablet PO 100 mg BID BAUDILIO Administration Protocol Omeprazole 20 mg 05/24/20 11:30 05/28/20 05:20 Omeprazole 20 Mg Capsule. PO 20 mg DAILY@0630 BAUDILIO Administration Ondansetron HCl 4 mg 05/24/20 11:04 Ondansetron Hcl 4 Mg/2 Ml Vial IVPUSH Q8H PRN Nausea and Vomiting Pharmacy Consult 1 each 05/23/20 22:44 Consult Rx Perform Med Rec MISCELLANE ONCE PRN Consult order Sodium Chloride 3 ml 05/24/20 11:04 05/28/20 07:56 0.9 % Sodium Chloride Flush 3 Ml Syringe IVFLUSH 3 ml QSHIFT [facility] Administration Trazodone HCl 50 mg 05/24/20 21:00 05/27/20 20:22 Trazodone Hcl 50 Mg Tablet PO 50 mg BEDTIME BAUDILIO Administration Vitamin D 25 mcg 05/24/20 11:04 05/28/20 07:57 Cholecalciferol (Vitamin D3) 25 Mcg Tablet PO 25 mcg DAILY BAUDILIO Administration Labs CBC & Chem 7: 05/27/20 05:22 05/27/20 05:22 Microbiology Microbiology Results: Microbiology 05/23/20 20:41 Blood - Venous Blood Culture - Preliminary No growth after 48 hours. 05/23/20 20:41 Blood - Venous Blood Culture - Preliminary No growth after 48 hours. 05/23/20 21:49 Urine clean catch - Clean Catch Midstream Urine Culture - Final Assessment and Plan (1) NSTEMI (non-ST elevated myocardial infarction): Status: Acute (2) KASSIE (acute kidney injury): Status: Acute (3) Hypertension: Status: Acute (4) Hyperlipidemia: Status: Acute (5) Hypothyroidism: Status: Acute Assessment and Plan: 80F presented with chest pain and sob and initally treated for NSTEMI but tuned out that she has large PE PE--has been on Lovenox for 2 days, change to Eliquis todaty and monitor for a day NSTEMI-- Likely demand ischemia from po. continue medical therapy with lipitor, as Severe sepsis ruled out lactic acid due to hypotension, hypotension cause unclear at this time, has resolved with hydration Acute kidney injury improved with ivf Hypothyroid Synthroid Hyperlipidemia Statin
[2020-05-28] MEDS: Apixaban 5 MG TABLET 10 MG PO ×2 (11:14→20:26)
--- NOTE | 2020-05-28 11:38 | P.PNCA_ITS ---
Subjective Subjective Date of Service: 05/28/20 Principal diagnosis: NSTEMI, bilateral PE Interval history: Cardiology follow up for NSTEMI, bilateral PE. Today she r eports feeling ok. She has no CP, sob, palpitation. Feeding self breakfast. Review of Systems Review of Systems Yes all other systems are reviewed and are negative Constitutional: Denies frequent falls Denies dizziness Cardiovascular: Denies chest pain, Denies chest pain at rest, Denies chest pain with activity, Denies syncope and Denies dyspnea on exertion Respiratory: Denies chest congestion, Denies cough, Denies hemoptysis, Denies pain on inspiration and Denies dyspnea on exertion Gastrointestinal: Reports no additional gastrointestinal complaints and Denies abdominal pain Musculoskeletal: Reports no additional musculoskeletal complaints Denies Abnormal speech present, Denies dizziness, Denies syncope and Denies frequent falls Physical Exam Vital Signs: Last Vital Signs Temp 97.5 F 05/28/20 07:17 Pulse 94 05/28/20 07:57 Resp 20 05/28/20 07:17 BP 168/92 H 05/28/20 07:57 Pulse Ox 97 05/28/20 07:17 Body Mass Index 35.7 Const General: cooperative, no acute distress, alert and awake Orientation/consciousness: patient oriented x3 HENMT Head: Yes normal to inspection Neck Neck: Yes normal visual inspection and Yes no JVD Resp Effort & Inspection: normal respiratory effort, able to speak in complete sentences and not labored Auscultation: clear to auscultation bilaterally, no crackles, no rales, no rhonchi and no wheezes Cardio Palpation: normal PMI Rate: regular rate Rhythm: regular rhythm Heart sounds: S1 normal heart sound present and S2 normal heart sound present GI Inspection: Yes normal to inspection Skin General skin exam: no rashes or lesions noted Neuro General: patient oriented x3 Speech: No Abnormal speech present Extrem General: Yes normal to inspection and No edema Results Labs and Meds Result diagrams: 05/27/20 05:22 05/27/20 05:22 Progress Note: A&P Assessment and plan (1) Pulmonary embolism: Status: Acute Assessment and Plan: Admit with CP, hypotension, elevated Trop. Has been on anticoagulation with Lovenox since admit. Echo shows normal LV, increased RV size and decreased RV function, mod to severe TR, severe pulm HTN. Nuclear stress test shows likely normal myocardial perfusion imaging. CTA of chest yesterday shows bilateral pulm embolism. Denies feeling sob. Remains on Lovenox. Recommend transition to NOAC. (2) NSTEMI (non-ST elevated myocardial infarction): Status: Acute Assessment and Plan: Secondary type NSTEMI in setting of RV strain related to acute bilateral PE. Denies any CPs. No clinical signs of acute CHF. Tele stable SR. (3) Hypertension: Status: Acute Assessment and Plan: Initially was hypotensive, with Cr 2.26. Cr now improved to normal. Home HCTZ and Lisinopril were stopped. BP has been elevated last few days. Amlodipine was added to her usual Metoprolol. BP this am 168/92. Will increase Amlodipine to 10mg daily. Fall Risk Details Current Medications: Current Medications Generic Name Dose Route Start Last Admin Trade Name Freq PRN Reason Stop Dose Admin Acetaminophen 650 mg 05/24/20 11:04 Acetaminophen 325 Mg Tablet PO Q6H PRN Pain, Mild (Pain Scale 1-3) Amlodipine Besylate 5 mg 05/26/20 12:00 05/28/20 07:57 Amlodipine Besylate 5 Mg Tablet PO 5 mg DAILY BAUDILIO Administration Protocol Apixaban 10 mg 05/28/20 12:00 05/28/20 11:14 Apixaban 5 Mg Tablet PO 10 mg BID BAUDILIO Administration Artificial Tears 1 drop 05/24/20 11:04 05/28/20 07:56 Artificial Tears 15 Ml Drops EYE-BOTH 1 drop BID BAUDILIO Administration Artificial Tears 1 drop 05/24/20 11:04 05/26/20 21:18 Artificial Tears 15 Ml Drops EYE-BOTH 1 drop TID PRN Administration Dry Eye(S) Aspirin 81 mg 05/26/20 09:00 05/28/20 07:56 Aspirin 81 Mg Tab.Chew PO 81 mg DAILY BAUDILIO Administration Atorvastatin Calcium 80 mg 05/25/20 21:00 05/27/20 20:23 Atorvastatin Calcium 80 Mg Tablet PO 80 mg BEDTIME BAUDILIO Administration Docusate Sodium 100 mg 05/24/20 11:04 05/28/20 07:57 Docusate Sodium 100 Mg Capsule PO 100 mg BID BAUDILIO Administration Docusate Sodium 100 mg 05/24/20 11:04 Docusate Sodium 100 Mg Capsule PO DAILY PRN Constipation Levothyroxine Sodium 50 mcg 05/28/20 06:00 05/28/20 05:20 Levothyroxine Sodium 50 Mcg Tablet PO 50 mcg DAILY@0600 BAUDILIO Administration Metoprolol Tartrate 100 mg 05/24/20 11:04 05/28/20 07:57 Metoprolol Tartrate 100 Mg Tablet PO 100 mg BID BAUDILIO Administration Protocol Omeprazole 20 mg 05/24/20 11:30 05/28/20 05:20 Omeprazole 20 Mg Capsule.Dr PO 20 mg DAILY@0630 BAUDILIO Administration Ondansetron HCl 4 mg 05/24/20 11:04 Ondansetron Hcl 4 Mg/2 Ml Vial IVPUSH Q8H PRN Nausea and Vomiting Pharmacy Consult 1 each 05/23/20 22:44 Consult Rx Perform Med Rec MISCELLANE ONCE PRN Consult order Sodium Chloride 3 ml 05/24/20 11:04 05/28/20 07:56 0.9 % Sodium Chloride Flush 3 Ml Syringe IVFLUSH 3 ml QSHIFT BAUDILIO Administration Trazodone HCl 50 mg 05/24/20 21:00 05/27/20 20:22 Trazodone Hcl 50 Mg Tablet PO 50 mg BEDTIME BAUDILIO Administration Vitamin D 25 mcg 05/24/20 11:04 05/28/20 07:57 Cholecalciferol (Vitamin D3) 25 Mcg Tablet PO 25 mcg DAILY BAUDILIO Administration Time Spent With Patient Time: Total time spent is greater than 50% in coordination of care (as documented) at patient's floor/unit and/or counseling patient: Time with patient: 15 - 24 minutes
--- NOTE | 2020-05-28 13:47 | P.PNIM_ITS ---
Subjective Subjective Date of Service: 05/29/20 Interval History: Seen in f/u for NSTEMI and sub massive PE. CT of chest yesterday show PE. No sob and no hypxia Review of Systems Gen: no fever Resp: no sob, no cough CV: no chest, no MITTAL, no leg edema GI: No n/v, no abd pain Neuro: No confusion Physical Exam Vital Signs: Vital Signs: Last Vital Signs Temp 98.3 F 05/28/20 12:00 Pulse 70 05/28/20 12:54 Resp 18 05/28/20 12:00 BP 155/90 H 05/28/20 12:54 Pulse Ox 99 05/28/20 12:00 Body Mass Index 35.7 Objective Data Current Medications Generic Name Dose Route Start Last Admin Trade Name Freq PRN Reason Stop Dose Admin Acetaminophen 650 mg 05/24/20 11:04 Acetaminophen 325 Mg Tablet PO Q6H PRN Pain, Mild (Pain Scale 1-3) Amlodipine Besylate 10 mg 05/29/20 09:00 Amlodipine Besylate 10 Mg Tablet PO DAILY BAUDILIO Protocol Apixaban 10 mg 05/28/20 12:00 05/28/20 11:14 Apixaban 5 Mg Tablet PO 10 mg BID BAUDILIO Administration Artificial Tears 1 drop 05/24/20 11:04 05/28/20 07:56 Artificial Tears 15 Ml Drops EYE-BOTH 1 drop BID BAUDILIO Administration Artificial Tears 1 drop 05/24/20 11:04 05/26/20 21:18 Artificial Tears 15 Ml Drops EYE-BOTH 1 drop TID PRN Administration Dry Eye(S) Atorvastatin Calcium 80 mg 05/25/20 21:00 05/27/20 20:23 Atorvastatin Calcium 80 Mg Tablet PO 80 mg BEDTIME BAUDILIO Administration Docusate Sodium 100 mg 05/24/20 11:04 05/28/20 07:57 Docusate Sodium 100 Mg Capsule PO 100 mg BID BAUDILIO Administration Docusate Sodium 100 mg 05/24/20 11:04 Docusate Sodium 100 Mg Capsule PO DAILY PRN Constipation Levothyroxine Sodium 50 mcg 05/28/20 06:00 05/28/20 05:20 Levothyroxine Sodium 50 Mcg Tablet PO 50 mcg DAILY@0600 BAUDILIO Administration Metoprolol Tartrate 50 mg 05/28/20 21:00 Metoprolol Tartrate 50 Mg Tablet PO BID BAUDILIO Protocol Omeprazole 20 mg 05/24/20 11:30 05/28/20 05:20 Omeprazole 20 Mg Capsule. PO 20 mg DAILY@0630 [facility] Administration Ondansetron HCl 4 mg 05/24/20 11:04 Ondansetron Hcl 4 Mg/2 Ml Vial IVPUSH Q8H PRN Nausea and Vomiting Pharmacy Consult 1 each 05/23/20 22:44 Consult Rx Perform Med Rec MISCELLANE ONCE PRN Consult order Sodium Chloride 3 ml 05/24/20 11:04 05/28/20 07:56 0.9 % Sodium Chloride Flush 3 Ml Syringe IVFLUSH 3 ml QSHIFT BAUDILIO Administration Trazodone HCl 50 mg 05/24/20 21:00 05/27/20 20:22 Trazodone Hcl 50 Mg Tablet PO 50 mg BEDTIME BAUDILIO Administration Vitamin D 25 mcg 05/24/20 11:04 05/28/20 07:57 Cholecalciferol (Vitamin D3) 25 Mcg Tablet PO 25 mcg DAILY BAUDILIO Administration Labs CBC & Chem 7: 05/27/20 05:22 05/27/20 05:22 Microbiology Microbiology Results: Microbiology 05/23/20 20:41 Blood - Venous Blood Culture - Preliminary No growth after 48 hours. 05/23/20 20:41 Blood - Venous Blood Culture - Preliminary No growth after 48 hours. 05/23/20 21:49 Urine clean catch - Clean Catch Midstream Urine Culture - Final Assessment and Plan (1) Pulmonary embolism: Status: Acute (2) NSTEMI (non-ST elevated myocardial infarction): Status: Acute (3) Hypertension: Status: Acute Assessment and Plan: Admit with CP, hypotension, elevated Trop. Has been on anticoagulation with Lovenox since admit. Echo shows normal LV, increased RV size and decreased RV function, mod to severe TR, severe pulm HTN. Nuclear stress test shows likely normal myocardial perfusion imaging. CTA of chest yesterday shows bilateral pulm embolism. Denies feeling sob. Remains on Lovenox. Recommend transition to NOAC. Secondary type NSTEMI in setting of RV strain related to acute bilateral PE. Denies any CPs. No clinical signs of acute CHF. Tele stable SR. Initially was hypotensive, with Cr 2.26. Cr now improved to normal. Home HCTZ and Lisinopril were stopped. BP has been elevated last few days. Amlodipine was added to her usual Metoprolol. BP this am 168/92. Will increase Amlodipine to 10mg daily.
--- NOTE | 2020-05-28 15:09 | MHC.CM.PN ---
no anticapted dc date at this time dc plan remanins nreturn to letty walker
[2020-05-28] MEDS: traZODone HCL 50 MG TABLET PO (20:25)
[2020-05-28] MEDS: Atorvastatin Calcium 80 MG TABLET PO (20:25)
[2020-05-28] MEDS: Metoprolol Tartrate 50 MG TABLET PO (20:25)
[2020-05-29 03:36] VITALS: BP 154/62; PULSE 72; RESP 20; TEMP 37; O2SAT 96
[2020-05-29] MEDS: Omeprazole 20 MG CAPSULE.DR PO (05:42)
[2020-05-29] MEDS: Levothyroxine Sodium 50 MCG TABLET PO (05:43)
[2020-05-29 07:38] VITALS: BP 162/80; PULSE 79; RESP 18; TEMP 36.6; O2SAT 99
[2020-05-29 09:10] VITALS: BP 162/80; PULSE 79
[2020-05-29] MEDS: Docusate Sodium 100 MG CAPSULE PO (09:10)
[2020-05-29] MEDS: amLODIPine Besylate 10 MG TABLET PO (09:10)
[2020-05-29] MEDS: Cholecalciferol (Vitamin D3) 25 MCG TABLET PO (09:10)
[2020-05-29 09:11] VITALS: BP 162/80; PULSE 79
[2020-05-29] MEDS: Apixaban 5 MG TABLET 10 MG PO (09:11)
[2020-05-29] MEDS: 0.9 % Sodium Chloride Flush 3 ML SYRINGE IVFLUSH (09:11)
[2020-05-29] MEDS: Metoprolol Tartrate 50 MG TABLET PO (09:11)
[2020-05-29] MEDS: Artificial Tears 15 ML DROPS 1 DROP EYE-BOTH (09:15)
--- NOTE | 2020-05-29 11:30 | PM.DS ---
DS: Providers Provider Date of admission: 05/23/20 23:33 Primary care physician: Unknown Physician Consults: 05/24/20 11:04 Consult to Cardiology Routine Consulting Provider: Melchor Arnold Reason for consultation: NSTEMI Has provider been notified: Yes DS: Diagnosis Discharge Diagnosis (1) Pulmonary embolism: Status: Acute (2) NSTEMI (non-ST elevated myocardial infarction): (3) Hypertension: DS: Medications Discharge Medications Home Medications: Home Medications Medication Instructions Recorded Confirmed cholecalciferol (vitamin D3) 25 mcg PO DAILY 05/23/20 05/23/20 [Vitamin D3] docusate sodium [Colace] 100 mg PO BID 05/23/20 05/23/20 hydrochlorothiazide 25 mg PO DAILY 05/23/20 05/23/20 levothyroxine 50 mcg PO DAILY 05/23/20 05/23/20 lisinopril 20 mg PO DAILY 05/23/20 05/23/20 metoprolol tartrate [Lopressor] 100 mg PO BID 05/23/20 05/23/20 pantoprazole 20 mg PO DAILY 05/23/20 05/23/20 polyvinyl alcohol [Artificial 1 drp OPHTHALMIC (EYE) BID 05/23/20 05/23/20 Tears (polyvin alc)] polyvinyl alcohol [Artificial 1 drp OPHTHALMIC (EYE) TID PRN 05/23/20 05/23/20 Tears (polyvin alc)] simvastatin 10 mg PO BEDTIME 05/23/20 05/23/20 trazodone 50 mg PO BEDTIME 05/23/20 05/23/20 Previous Rx's Medication Instructions Recorded apixaban [Eliquis DVT-PE Treat 30D 5 - 10 mg PO PER [facility] DIR #[id number] ea 05/29/20 Start] DS: Summary Hospital Course Hospital Course: 80-year-old female hypothyroidism, hypertension, who presents to the hospital with complaints of weakness, chest tightness, mild shortness of breath. On my interview of the patient she reports that she has never been feeling so sick in her life before, she reports generally feeling sick since Tuesday, very vague about her symptoms but does endorse chest pain that centered mid 10, midsternal, pressure-like/tightness, nonradiating, severe, that is intermittent associated with mild shortness of breath. Patient also complaining of dizziness, reports that she had a fall at home due to her weakness, although denies any loss of consciousness, denies any palpitations prior to the fall, denies any change in vision or headache. Patient complaining of urinary frequency. Review of systems otherwise negative, Vitals are significant for temp of 97.8?, respiratory rate of 16, heart rate of 100, blood pressure of 98/57, satting 97% on room air Labs are significant for WBC count of 12.4, hemoglobin of 10, sodium of 142, potassium 4.2, anion gap 23, BUN of 48, creatinine of 2.261 (no previous to compare), lactic acid of 6.6, has to troponin of 155, followed by 2nd which was 354, UA that is positive for leukocyte Estrace and bacteria Chest x-ray negative Hospital course: Admit with CP, hypotension, elevated Troponin and initially started on anticoagulation with Lovenox since for NSTEMI. And cardiology was consulted and Echo shows normal LV, increased RV size and decreased RV function, mod to severe TR, severe pulm HTN. Nuclear stress test shows likely normal myocardial perfusion imaging. CTA of chest was done on 05/28 and show bilateral pulm embolism. She has not been having shortness of breath and is not hypoxic. For the Pulmonary embolism Lonenox has been switched to Eliquis 10 bid for 7 days follow by 5 mg bid thereafter. She should be screened outpatient basis for updated mamagram, and colonoscopy (2) NSTEMI (non-ST elevated myocardial--This is likely demand related ischemica from PE causing RV strain. Was followed by cardilogy as stated above. Presently wihtout chest pain or shortness of breath Secondary type NSTEMI in setting of RV strain related to acute bilateral PE. Denies any CPs. No clinical signs of acute CHF. Tele stable SR. KASSIE--likely related to Hypotension initially from PE, this has resolved with IVF. Creatinine on admission was 2.26 now 1.09 HTN--Initial BP was low 86/47 but has since improved and is now in Hypertensive range. Initially was hypotensive, with Cr 2.26. Cr now improved to normal. Home HCTZ and Lisinopril were stopped. BP has been elevated last few days. Amlodipine was added to her usual Metoprolol. BP this am 168/92. Will increase Amlodipine to 10mg daily. Time Spent with Patient Time attestation: Total time spent providing and/or coordinating discharge services: Physical Exam Vital Signs: Vital Signs: Last Vital Signs Temp 97.9 F 05/29/20 07:38 Pulse 79 05/29/20 09:11 Resp 18 05/29/20 07:38 BP 162/80 H 05/29/20 09:11 Pulse Ox 99 05/29/20 07:38 Body Mass Index 35.7 DS: Data Data Completed and Pending Labs on day of discharge: 05/23/20 19:01 ECG 12 lead EKG Stat EKG Documentation DIRECTED 05/23/20 19:02 0.9 % Sodium Chloride [Ns] 1,000 ml IVCONT 500 mls/hr 05/23/20 19:42 SARS-CoV2/FLU/RSV Stat 05/23/20 20:00 XR chest 1V Stat 05/23/20 20:41 Basic Metabolic Panel Stat Complete Blood Count Auto Diff Stat Lactic Acid Stat Liver Panel Stat Troponin-I High Sensitivity Stat Blood Culture X2 [BC] Stat 05/23/20 21:27 0.9 % Sodium Chloride [Ns] 1,000 ml IVCONT 999 mls/hr 05/23/20 21:30 cefTRIAXone sodium [Rocephin] 1 gm 0.9 % Sodium Chloride [Ns] 50 ml IV ONCE 05/23/20 21:36 cefTRIAXone sodium [Rocephin] 1 gm .ROUTE .STK-MED ONE 05/23/20 21:49 Urine Culture Routine 05/23/20 23:23 Transfer Order Routine 05/23/20 23:37 Troponin-I High Sensitivity Stat ~Lactic Acid-LAB USE ONLY Stat 05/24/20 00:30 Enoxaparin Sodium [Lovenox] 90 mg SUBCUT Q12H 05/24/20 06:55 B Type Natriuretic Peptide Stat Lactic Acid Stat 05/24/20 08:36 Add Laboratory Test Routine 05/24/20 11:04 Aspirin 324 mg PO ONCE ONE Lactated Ringers [Lr] 1,000 ml IVCONT 100 mls/hr Levothyroxine Sodium [Synthroid] 50 mcg PO DAILY Metoprolol Tartrate [Lopressor] 100 mg PO BID cefTRIAXone sodium [Rocephin] 1 gm 0.9 % Sodium Chloride [Ns] 50 ml IV Q24H 05/24/20 11:04 Continuous Cardiac Monitoring NOW 05/24/20 11:38 cefTRIAXone sodium [Rocephin] 1 gm .ROUTE .STK-MED ONE 05/24/20 15:02 B Type Natriuretic Peptide Stat Basic Metabolic Panel Routine Complete Blood Count Auto Diff Routine 05/24/20 21:00 Atorvastatin Calcium [Lipitor] 10 mg PO BEDTIME 05/25/20 ECG 12 lead EKG Stat 05/25/20 06:58 BMP [Basic Metabolic Panel Fasting] Routine Complete Blood Count Auto Diff Routine Magnesium Routine 05/25/20 10:39 EKG Documentation DIRECTED 05/25/20 13:41 Troponin-I High Sensitivity Routine 05/26/20 CA lexiscan stress w eugenia Routine 05/26/20 05:45 BMP [Basic Metabolic Panel Fasting] Routine Complete Blood Count Auto Diff Routine 05/26/20 09:00 Aspirin 81 mg PO DAILY 05/26/20 11:04 CA echo transthorac w con Routine 05/26/20 12:00 amLODIPine Besylate [Norvasc] 5 mg PO DAILY 05/26/20 14:00 NM eugenia perf SPECT rest & str Routine 05/26/20 15:46 Perflutren Lipid Microspheres [Definity] 2.2 mg IVPUSH .STK-MED ONE 05/27/20 CT angio chest PE protocol Urgent 05/27/20 05:22 BMP [Basic Metabolic Panel Fasting] Routine Complete Blood Count Auto Diff Routine 05/27/20 11:03 Aminophylline 250 mg .ROUTE .STK-MED ONE Regadenoson [Lexiscan] 0.4 mg IV .STK-MED ONE 05/27/20 18:21 iohexoL 350 MG/ML [Omnipaque 350 MG/ML] 100 ml IV ONCE ONE 05/28/20 05:00 hydrALAZINE HCl [Apresoline] 10 mg IVPUSH ONCE ONE 05/28/20 05:05 hydrALAZINE HCl [Apresoline] 20 mg .ROUTE .STK-MED ONE 05/28/20 06:14 hydrALAZINE HCl [Apresoline] 10 mg IM ONCE ONE 05/28/20 07:30 hydrALAZINE HCl [Apresoline] 10 mg IVPUSH ONCE ONE 05/28/20 12:22 amLODIPine Besylate [Norvasc] 5 mg PO ONCE ONE Laboratory Last Values WBC 7.8 X10*3/uL (4.8-10.8) 05/27/20 05:22 RBC 3.47 X10*6/uL (4.20-5.50) L 05/27/20 05:22 Hgb 9.4 g/dl (12.0-16.0) L 05/27/20 05:22 Hct 30.5 % (37-47) L 05/27/20 05:22 MCV 87.9 fL (80-98) 05/27/20 05:22 MCH 27.1 pg (27.0-33.0) 05/27/20 05:22 MCHC 30.8 g/dl (31.0-35.0) L 05/27/20 05:22 RDW 16.2 % (11.0-16.0) H 05/27/20 05:22 Plt Count 206 X10*3/uL (160-400) 05/27/20 05:22 MPV 10.0 fL (9.4-12.3) 05/27/20 05:22 Immature Gran % (Auto) 0.5 % (0.0-0.4) H 05/27/20 05:22 Neut % (Auto) 75.9 % (45-73) H 05/27/20 05:22 Lymph % (Auto) 16.3 % (20-40) L 05/27/20 05:22 [place] % (Auto) 6.8 % (2-11) 05/27/20 05:22 Eos % (Auto) 0.1 % (0-4) 05/27/20 05:22 Baso % (Auto) 0.4 % (0-2) 05/27/20 05:22 Lymph # (Auto) 1.3 X10*3/uL (1.2-4.9) 05/27/20 05:22 [place] # (Auto) 0.5 X10*3/uL (0.1-1.2) 05/27/20 05:22 Eos # (Auto) 0.0 X10*3/uL (0.0-0.4) 05/27/20 05:22 Baso # (Auto) 0.0 X10*3/uL (0.0-0.2) 05/27/20 05:22 Abs Immat Gran (auto) 0.04 X10*3/uL (0.00-0.03) H 05/27/20 05:22 Absolute Neuts (auto) 5.9 X10*3/uL (2.0-8.3) 05/27/20 05:22 Absolute Nucleated RBC 0.050 X10*3/uL (0.0-0.012) H 05/27/20 05:22 Nucleated RBC % (auto) 0.6 /100WBC (0.0-0.2) H 05/27/20 05:22 Sodium 145 mmol/L (135-145) 05/27/20 05:22 Potassium 4.2 mmol/l (3.3-5.1) 05/27/20 05:22 Chloride 113 mmol/L (96-108) H 05/27/20 05:22 Carbon Dioxide 19 mmol/L (22-29) L 05/27/20 05:22 Anion Gap 17 (-20) 05/27/20 05:22 BUN 22 mg/dL (9-16) H 05/27/20 05:22 Creatinine 1.09 mg/dL (0.5-1.4) 05/27/20 05:22 Estim Creat Clear Calc 43.4 05/27/20 05:22 Estimated GFR 48 05/27/20 05:22 Random Glucose 110 mg/dL (60-115) 05/24/20 15:02 Fasting Glucose 115 mg/dL (60-99) H 05/27/20 05:22 Lactic Acid 2.2 mmol/L (0.5-2.0) H* 05/24/20 06:55 Lactic Acid Fup @ 2Hr Cancelled 05/24/20 10:35 Calcium 8.6 mg/dL (8.4-10.2) 05/27/20 05:22 Magnesium 2.1 mg/dL (1.6-2.6) 05/25/20 06:58 Total Bilirubin 0.4 mg/dL (0.0-1.0) 05/23/20 20:41 Direct Bilirubin 0.2 mg/dL (0.0-0.5) 05/23/20 20:41 AST 55 U/L (5-31) H 05/23/20 20:41 ALT 40 U/L (0-31) H 05/23/20 20:41 Alkaline Phosphatase 109 U/L (39-117) 05/23/20 20:41 Troponin I High Sens 84.2 ng/L (<3.5-17.0) H D 05/25/20 13:41 B-Natriuretic Peptide 1158 pg/mL (<100) H 05/24/20 15:02 Total Protein 8.1 g/dL (6.5-8.0) H 05/23/20 20:41 Albumin 4.3 g/dL (3.5-5.0) 05/23/20 20:41 Urine Color YELLOW 05/23/20 21:37 Urine Appearance HAZY 05/23/20 21:37 Urine pH 5.5 (5.0-8.0) 05/23/20 21:37 Ur Specific [place] 1.025 (1.005-1.025) 05/23/20 21:37 Urine Protein 1+ MG/DL (NEG-TRACE) H 05/23/20 21:37 Urine Glucose (UA) NEG MG/DL (NEG) 05/23/20 21:37 Urine Ketones NEG MG/DL (NEG) 05/23/20 21:37 Urine Blood 1+ (NEG) H 05/23/20 21:37 Urine Nitrite NEG (NEG) 05/23/20 21:37 Ur Leukocyte Esterase TRACE (NEG) H 05/23/20 21:37 Urine RBC 0-2 /HPF (0) 05/23/20 21:37 Urine WBC 0-2 /HPF (0-4) 05/23/20 21:37 Ur Squamous Epith Cells TRACE /LPF 05/23/20 21:37 Urine Bacteria 4+ /LPF 05/23/20 21:37 Coronavirus (PCR) NEGATIVE (Negative) 05/23/20 19:42 Influenza Type A (PCR) NEGATIVE (Negative) 05/23/20 19:42 Influenza Type B (PCR) NEGATIVE (Negative) 05/23/20 19:42 RSV RNA Qual (PCR) NEGATIVE (Negative) 05/23/20 19:42 Discharge Plan Discharge Patient Disposition: Xfer SNF Referrals: [facility] [Outside] Physician,Unknown [Primary Care Provider] - Discharge Medications: New Eliquis DVT-PE Treat 30D Start 5 mg (74 tabs) tablets,dose pack 5 - 10 mg PO PER PKG DIR Qty: 74 RF: 0 amlodipine 10 mg Tablet 10 mg PO DAILY Qty: 30 RF: 0 Continued trazodone 50 mg Tablet 50 mg PO BEDTIME RF: 0 simvastatin 10 mg Tablet 10 mg PO BEDTIME RF: 0 docusate sodium [Colace] 100 mg Capsule 100 mg PO BID RF: 0 cholecalciferol (vitamin D3) [Vitamin D3] 25 mcg (1,000 unit) Tablet 25 mcg PO DAILY RF: 0 polyvinyl alcohol [Artificial Tears (polyvin alc)] 1.4 % Drops 1 drp OPHTHALMIC (EYE) BID RF: 0 lisinopril 20 mg Tablet 20 mg PO DAILY RF: 0 pantoprazole 20 mg Tablet,Delayed Release (Dr/Ec) 20 mg PO DAILY RF: 0 levothyroxine 50 mcg Tablet 50 mcg PO DAILY RF: 0 polyvinyl alcohol [Artificial Tears (polyvin alc)] 1.4 % Drops 1 drp OPHTHALMIC (EYE) TID PRN (Reason: Dry Eye(S)) RF: 0 Changed metoprolol tartrate [Lopressor] 100 mg Tablet 50 mg PO BID Qty: 0 RF: 0 Discontinued hydrochlorothiazide 25 mg Tablet 25 mg PO DAILY RF: 0 Discharge Orders: Discharge Order (Routine); Ordered 05/29/20 Ordered By: Kaushik Cartwright Activity on Discharge: As tolerated Discharge Date/Time: 05/29/20 13:30 Visit Report Forms: Patient Portal Discharge page Care Plan Goals: Prevent further blood clot Health Concerns: blood clots Plan of Treatment: Take Eliquis as recommended and follow up with your Doctor in a week, call for appointment. Should have screening evlaluation including Momogram and colonoscopy if not already done
--- NOTE | 2020-05-29 11:31 | MHC.CM.PN ---
Addendum entered by Christy Plata 05/29/20 14:40: DC summary and results of Covid 19 swab were faxed prior to DC Original Note: DONNY spoke to [facility], Christy who reported she would need the pt to return by 1300 hours today as she is the only one that can do the pts readmission and she leaves at 1400 hours and will not be back until Tuesday. She reports the pt will need an updated covid test prior to return as they are covid free at this time. She also reports the pt must be able to get up and ambulate independently as she is on the 3rd floor and out of staff sight much of the day. MD and nurse notified of need for covid swab and DC prior to 1300 hours Pt will DC at 1300 hours today via [employer] [facility] DC summary and covid results will be faxed to [phone] prior to DC
[2020-05-29 11:39] VITALS: BP 158/78; PULSE 82; RESP 20; TEMP 36.3; O2SAT 97
[2020-05-29 12:39] VITALS: BP 158/78; PULSE 82
[2020-05-29] MEDS: lisinopriL 20 MG TABLET PO (12:39)
[2020-05-29 12:46] LABS: COVID-19 Test Negative (Negative)
--- NOTE | 2020-05-29 13:33 | PC.NURSE ---
Blood noted when completing Covid nasal swab. Dr. Cartwright made aware. No new orders. Will continue to monitor.
== END 2020-05-29 13:30 | disposition skilled nursing facility (03) | DRG 175 ==
LOC: HO.ED 22:17 → HO.S3 23:53 → HO.IMC 05-24 12:35
PROVIDERS: Internal Medicine; Nurse Practitioner Family; Admitting Provider Internal Medicine; Emergency Provider Internal Medicine; Visit Provider Internal Medicine
DX: I26.99 Other pulmonary embolism without acute cor pulmonale (principal); I21.A1 Myocardial infarction type 2; N39.0 Urinary tract infection, site not specified; N17.9 Acute kidney failure, unspecified; E03.9 Hypothyroidism, unspecified; E78.5 Hyperlipidemia, unspecified; I10 Essential (primary) hypertension; Z20.828 Contact with and (suspected) exposure to other viral communicable diseases; Z79.890 Hormone replacement therapy; Z79.899 Other long term (current) drug therapy
CPT/HCPCS: 0241U; 11104; 36415; 71045; 71275; 78452; 80048; 80076; 81001; 83605; 83735; 83880; 84484; 85025; 87040; 87086; 87635; 93005; 93017; 93306; 96361; 96372; 96374; 99285; 99291; A9500; J0280; J0696; J1650; J2785; Q9957; Q9967

== ENCOUNTER 2022-08-17 12:34 | Inpatient (IN) | payer OTHER, MEDICAID, SELFPAY ==
--- NOTE | ~2022-08-17 | CT_ITS ---
EXAMINATION: CT ANGIOGRAM HEAD CT ANGIOGRAM NECK CLINICAL INFORMATION: Unresponsive stroke. COMPARISON: CT head from 08/17/2022. TECHNIQUE: Initial noncontrast concrete wall grinder operator imaging of the head and neck was performed. Comparison is made with noncontrast head CT from earlier today. Test bolus sequences followed by intravenous administration 70 mL of Omnipaque 350. Helical imaging was performed in the axial plane from the aortic arch to the skull vertex. Delayed postcontrast imaging of the head was also performed. The data was processed at the principal technologist's workstation for generation of MIP sequences. Angled MIPs and volume rendered reformatted images were also generated at an offline 3D workstation. Stenoses are assessed in accordance with NASCET criteria unless otherwise indicated. This CT examination was performed using dose optimization techniques as appropriate, variously including the following: *Automated exposure control. *Adjustment of mA and/or kV according to patient size (this includes techniques or standardized protocols for targeted exams where dose is matched to indication/reason for exam; i.e. extremities or head). *Use of iterative reconstruction technique. DLP: 1569 mGy-cm FINDINGS: CT Head: There is no evidence of acute intracranial hemorrhage or edematous territorial infarction. Scattered hypoattenuation in the periventricular and deep white matter are consistent with moderate microangiopathy. Shine-white matter differentiation is preserved. The ventricles are normal in size and configuration. No evidence for obstructive hydrocephalus. No abnormal mass effect or midline shift. No extra-axial fluid collections. No pathologic intra-axial enhancement. No acute soft tissue or osseous abnormalities. Mild mucosal thickening of the paranasal sinuses. The mastoid air cells and middle ear cavities are clear. CT Neck: The thyroid gland and remaining cervical soft tissues are within normal limits. Advanced degenerative disc disease at C4-C5. Moderate degenerative disc disease at all additional cervical levels. No additional significant abnormalities of the cervical spine. CT Upper Chest: The visualized lung apices and upper mediastinum are within normal limits. Neck CTA: Moderately motion degraded exam. Aortic Arch: Normal contour and caliber with mild calcific atherosclerotic disease. Classic 3 vessel branching pattern of the aortic arch. Great Vessel Origins: No significant stenosis of the branch origins. Right Common Carotid Artery: No focal stenosis or occlusion. Cervical Right Internal Carotid Artery: Calcific atherosclerotic disease of the carotid bulb and proximal internal carotid artery causing less than 50% stenosis. Left Common Carotid Artery: No focal stenosis or occlusion. Cervical Left Internal Carotid Artery: Calcific atherosclerotic disease of the carotid bulb and proximal internal carotid artery causing less than 50% stenosis. Cervical Right Vertebral Artery: No demonstrated focal stenosis or occlusion. Cervical Left Vertebral Artery: Mildly dominant. No demonstrated focal stenosis or occlusion. Brain CTA: Intracranial Internal Carotid Arteries: Calcific atherosclerotic disease of the intracranial internal carotid arteries without occlusion or flow-limiting stenosis. There is a 0.2 cm triangular excrescence arising from the distal supraclinoid segment of the right ICA suggestive of an infundibulum. Right Anterior Cerebral Artery: Normal A1 segment. Normal opacification of the distal LEAH segments. Left Anterior Cerebral Artery: Normal A1 segment. Normal opacification of the distal LEAH segments. Anterior Communicating Artery: Normal. Right Middle Cerebral Artery: Normal M1 segment of the MCA without focal stenosis or occlusion. Normal arborization of the distal segments. Left Middle Cerebral Artery: Normal M1 segment of the MCA without focal stenosis or occlusion. Normal arborization of the distal segments. Right Vertebral Artery: Normal V4 segment. The posterior inferior cerebellar artery is not well opacified; however, there is no CT evidence of acute occlusion. Left Vertebral Artery: Normal V4 segment. Normal opacification of the proximal segments of the posterior inferior cerebellar artery. Basilar Artery: Normal without focal stenosis or occlusion. Normal appearance of the proximal superior cerebellar arteries. Right Posterior Cerebral Artery: Normal P1 segment. Normal opacification of the distal CLAIMS CORRESPONDENCE CLERK segments. Left Posterior Cerebral Artery: Combined origin of the left superior cerebellar artery and P1 segment left CLAIMS CORRESPONDENCE CLERK. Normal opacification of the left posterior communicating artery. Normal opacification of the distal CLAIMS CORRESPONDENCE CLERK segments. Right dominant transverse/sigmoid sinuses. The left transverse/sigmoid sinuses are hypoplastic. Otherwise, normal opacification bilateral lens extractions. Of the superior sagittal, straight, transverse, and sigmoid sinuses. CT/CT angio head neck stroke IMPRESSION: 1. No evidence of acute intracranial hemorrhage or edematous territorial infarction. Moderate underlying microangiopathy and generalized cerebral volume loss. 2. CTA of the head and neck without proximal occlusion or flow-limiting stenosis. This critical result was discussed with SHWETA Francis at 14:50 on 08/17/2022 and it was ascertained that the content and urgency of the report was understood at the time of direct communication.
--- NOTE | ~2022-08-17 | MR_ITS ---
EXAMINATION: MR BRAIN WITHOUT CONTRAST CLINICAL INFORMATION: Cerebrovascular accident. Unresponsiveness. COMPARISON: CTA head and neck from 08/27/2022. TECHNIQUE: MRI of the brain was obtained using routine sequences without contrast. FINDINGS: No focal restricted diffusion is demonstrated to suggest acute or subacute cerebral ischemia. No evidence of acute or chronic hemorrhagic products on heme-sensitive imaging. Scattered and partially confluent periventricular, deep white matter, and brainstem T2 FLAIR hyperintensities consistent with moderate underlying microangiopathy. Proportional prominence of the ventricles and sulcal spaces without evidence of obstructive hydrocephalus. No abnormal mass effect. No midline shift. Normal appearance of the pituitary gland. The cerebellar tonsils are positioned at the level the foramen magnum. Normal arterial and venous vascular flow voids are present. Normal, homogeneous marrow signal. Mild mucosal thickening of the paranasal sinuses. No signal abnormalities within the mastoids. Bilateral lens extractions. MR/MR head/brain wo con IMPRESSION: 1. No acute intracranial abnormalities. 2. Moderate underlying microangiopathy and generalized cerebral volume loss.
--- NOTE | ~2022-08-17 | XR_ITS ---
EXAMINATION: XR CHEST CLINICAL INFORMATION: Unresponsive COMPARISON: 05/23/2020 TECHNIQUE: Frontal view of the chest was obtained. FINDINGS: Cardiac leads overlie the chest. The lungs are well expanded. Minimal linear opacity at the right apex favors atelectasis. There is no focal consolidation, edema, or effusion. No pneumothorax. The cardiomediastinal silhouette is within normal limits. No acute osseous abnormality. XR/XR chest 1V IMPRESSION: Minimal right apical atelectasis. Otherwise clear lungs.
--- NOTE | ~2022-08-17 | CT_ITS ---
EXAMINATION: CT HEAD WITHOUT CONTRAST (STROKE PROTOCOL) CLINICAL INFORMATION: Stroke protocol. Nonverbal. Unresponsive. COMPARISON: None. TECHNIQUE: Contiguous axial imaging was performed from the skull base to vertex without intravenous administration of contrast. Coronal and sagittal reformatted images are performed at the CT scanner. [This CT examination was performed using dose optimization techniques as appropriate, variously including the following: *Automated exposure control *Adjustment of mA and/or kV according to patient size (this includes techniques or standardized protocols for targeted exams where dose is matched to indication/reason for exam; i.e. extremities or head) *Use of iterative reconstruction technique] DLP: 778 mGy-cm. FINDINGS: There is no evidence of acute intracranial hemorrhage or territorial infarction. No abnormal mass-effect or midline shift is seen. Shine to white matter differentiation is well preserved. No extra-axial fluid collections are identified. There is generalized global volume loss. There is moderate prominence of the ventricles and the sulci . There is mild hypodensity of the periventricular white matter due to chronic small vessel ischemic disease. There are vascular calcifications of the internal carotid arteries bilaterally. There is no osseous abnormality. The mastoid air cells and visualized portions of the paranasal sinuses are well-aerated. CT/CT head for stroke IMPRESSION: No acute intracranial pathology. This critical result was discussed with Flavio Tamayo on 08/17/2022, 2:30 PM and it was ascertained that the content and urgency of the report was understood at the time of direct communication.
[2022-08-17 12:48] VITALS: BP 140/55; BP 154/72; PULSE 70; PULSE 77; RESP 21; TEMP 36.6; O2SAT 100; O2SAT 97; BMI 29.0
--- NOTE | 2022-08-17 13:46 | ED_ITS ---
HPI - General Adult General Chief complaint: Altered Mental Status Stated complaint: CALLED FOR RESPONSIVE TO [facility] PER EMS Time Seen by Provider: 08/17/22 13:16 Source: patient Mode of arrival: ambulatory Limitations: no limitations History of Present Illness HPI narrative: 82 year old female sent in from [facility]. Per EMS was sent in because the nursing facility felt she was playing possum. Patient only grunts opens eyes and moves her body but will not speak. I called [facility] to see what her baseline is and how long she has been at the facility Related Data Home Medications Medication Instructions Recorded Confirmed cholecalciferol (vitamin D3) 25 25 mcg PO DAILY 05/23/20 05/23/20 mcg (1,000 unit) tablet (Vitamin D3) docusate sodium 100 mg capsule 100 mg PO BID 05/23/20 05/23/20 (Colace) levothyroxine 50 mcg tablet 50 mcg PO DAILY 05/23/20 05/23/20 lisinopril 20 mg tablet 20 mg PO DAILY 05/23/20 05/23/20 pantoprazole 20 mg tablet,delayed 20 mg PO DAILY 05/23/20 05/23/20 release polyvinyl alcohol 1.4 % eye drops 1 drp ophthalmic (eye) BID 05/23/20 05/23/20 (Artificial Tears (polyvinyl alcohol)) polyvinyl alcohol 1.4 % eye drops 1 drp ophthalmic (eye) TID PRN Dry 05/23/20 05/23/20 (Artificial Tears (polyvinyl Eye(S) alcohol)) simvastatin 10 mg tablet 10 mg PO BEDTIME 05/23/20 05/23/20 trazodone 50 mg tablet 50 mg PO BEDTIME 05/23/20 05/23/20 Previous Rx's Medication Instructions Recorded amlodipine 10 mg tablet 10 mg PO DAILY #30 tabs 05/29/20 apixaban 5 mg (74 tabs) tablets in 5 - 10 mg PO PER PKG DIR #74 ea 05/29/20 a dose pack (Eliquis DVT-PE Treat 30D Start) metoprolol tartrate 100 mg tablet 50 mg PO BID #0 tabs 05/29/20 (Lopressor) Allergies Allergy/AdvReac Type Severity Reaction Status Date / Time From CELEXA Allergy Unknown UNKNOWN Uncoded 02/28/20 18:03 Review of Systems Review of Systems: Yes Unobtainable due to mental status PMFSH Past Medical History Medical History Hyperlipidemia Hypertension Hypothyroidism Social History Social History Household Members: None Housing: Assisted Living Facility Do you presently have visiting nurse or other home services: Yes Advance Directives: No Advance Directives Information Provided: Yes service: No Current occupational status: unemployed Physical Exam ED Vital Signs: Vital Signs - 24 hr 08/17/22 12:48 08/17/22 13:54 08/17/22 14:44 Temperature 97.8 F 97.9 F Pulse Rate 77 71 73 Respiratory Rate 21 H 10 L 16 Blood Pressure 140/55 H 115/41 L 136/66 Pulse Oximetry 100 100 99 Oxygen Delivery Method Room Air Room Air Room Air BMI result Body Mass Index 29.0 Neurological exam: CN II- XII tested. Patient is alert and oriented to person place and time. Patient has no dysphagia or dysarthia, denies good vision in all four vision lozano no nystagmus on exam, good strength to upper and lower extremities with normal reflexes to brachioradialis, wrist, patella and achilles. Negative romberg, good finger to nose and heel to burton. General: Well-appearing well-nourished in no signs of distress HEENT: Normocephalic atraumatic Neck: No signs of JVD, no masses no tenderness or lymphadenopathy Cardiovascular: Regular rate and rhythm Respiratory: Clear to auscultation bilaterally Abdomen: Soft nontender no masses Extremities: Normal pedal pulses no signs of edema Skin: Dry warm no rashes Back: No tenderness full ROM NIH Stroke Scale Internal: Initial- Upon Arrival Level of Consciousness: Not Alert; but arousable by minor stimulation Level of Consciousness Questions: Answers neither question correctly Level of Consciousness Commands: Performs neither task correctly Best Gaze: Normal Visual: No visual loss Facial Palsy: Normal Motor Arm (Right): No drift Motor Arm (Left): No drift Motor Leg (Right): No drift Motor Leg (Left): No drift Limb Ataxia: Absent Sensory: Normal Best Language: Mute, global aphasia Dysarthia: Normal Extinction and Inattention: Visual, tactile, auditory, spatial, or personal inattention Score: 9 Medications Administered Discontinued Medications Generic Name Dose Route Start Last Admin Trade Name Freq PRN Reason Stop Dose Admin Iohexol 100 ml 08/17/22 14:26 08/17/22 14:28 Iohexol 350 Mg/Ml 100 Ml Infus..Btl IV 08/17/22 14:27 70 ml ONCE ONE Administration Medical Decision Making Medical Decision Making [facility] Narrative: I called and spoke with his nurse per nurse she was slumped over to the side. She would not respond. She hates normally coming to the hospital. She has had this in the past and found to have afib. She is at assisted living facility [facility] locally no other reason has been with them for some time. She has history had CAD and she was concerned. Prior to being found altered she was seen 35 minutes prior walked down to nursing station and was normal. A fresh foods clerk found her. Found unresponsive around 1150 NIH stroke scale is 9 patient is adamant for tPA is out of the window for tPA as her symptoms started at 11:50 and she was not seen until 02:00 o'clock was unable to get a hold of the nursing staff at the facility is well beyond the 90 minute window but the patient is well into the window for clot retrieval so will go over for elbow study labs I did notify CT scan nursing and will accelerate the workup from here. 1513 [address] now awake and alert speaking with son. CTA workup negative. he states she gets like this when she gets bladder infections I will admit for syncope stroke workup and likely UTI but urine was not sent yet. Differential Diagnosis Differential Diagnoses: The differential diagnosis associated with the presentation includes CVA UTI altered mental status head bleed dehydration or other electrolyte abnormality due to the sudden onset Of symptoms stroke is high in the differential Admission/Observation Consideration of admission/observation: Escalation of care including admission/observation considered Consult Healthcare Provider Management of the patient was discussed with: Hospitalist and Back Tender Dr. Rodney was consulted for admission. He stated he wanted ECHO and VQ scan since she passed out and has a PE in the past she is on eliquis, not tachycardic or hypoxic. I did explain that is not part of the ER workup and if he feels it is warranted he can get that workup but that should be done after admission not prior to admission. I touched base with Neuro who reviewed the record, CTA and labs agreed with admission and saw the patient. Lab Data [facility] Lab Attestation statement: I reviewed the patient's lab results. 08/17/22 14:39 08/17/22 14:39 Labs: Lab Results 08/17/22 08/17/22 08/17/22 Range/Units 14:18 14:18 14:39 WBC (4.8-10.8) X10*3/uL RBC (4.20-5.50) X10*6/uL Hgb (12.0-16.0) g/dl Hct (37.0-47.0) % MCV (80.0-98.0) fL MCH (27.0-33.0) pg MCHC (31.0-35.0) g/dl RDW (11.0-16.0) % Plt Count (160-400) X10*3/uL MPV (9.4-12.3) fL Immature Gran % (Auto) (0.0-0.4) % Neut % (Auto) (45-73) % Lymph % (Auto) (20-40) % Terry % (Auto) (2-11) % Eos % (Auto) (0-4) % Baso % (Auto) (0-2) % Lymph # (Auto) (1.2-4.9) X10*3/uL Terry # (Auto) (0.1-1.2) X10*3/uL Eos # (Auto) (0.0-0.4) X10*3/uL Baso # (Auto) (0.0-0.2) X10*3/uL Abs Immat Gran (auto) (0.00-0.03) X10*3/uL Absolute Neuts (auto) (2.0-8.3) x10*3/uL Absolute Nucleated RBC (0.0-0.012) X10*3/uL Nucleated RBC % (auto) (0.0-0.2) /100WBC Whole Blood PT 14.7 H (11.1-13.5) sec Whole Blood INR 1.2 H (0.9-1.1) Sodium 137 (135-145) mmol/L Potassium 4.7 (3.3-5.1) mmol/L Chloride 106 (96-108) mmol/L Carbon Dioxide 20 L (22-29) mmol/L Anion Gap 16 (12-20) BUN 29 H (9-16) mg/dL Creatinine 1.72 H (0.5-1.4) mg/dL Estim Creat Clear Calc 30.4 Estimated GFR 28 POC Glucose 105 (60-115) mg/dL Random Glucose 105 (60-115) mg/dL Calcium 9.7 D (8.4-10.2) mg/dL Total Bilirubin 0.3 (0.0-1.0) mg/dL Direct Bilirubin < 0.2 (0.0-0.5) mg/dL AST 16 (5-31) U/L ALT 9 (0-31) U/L Alkaline Phosphatase 112 (39-117) U/L Total Creatine Kinase 261 H (26-140) U/L Troponin I High Sens (<3.5-17.0) ng/L B-Natriuretic Peptide (<100) pg/mL Total Protein 7.7 (6.5-8.0) g/dL Albumin 4.3 (3.5-5.0) g/dL Lipase 23 (8-78) U/L COVID-19 (GIANNI) (Negative) COVID-19 Clin Com 08/17/22 08/17/22 08/17/22 Range/Units 14:39 14:39 14:39 WBC 5.1 (4.8-10.8) X10*3/uL RBC 4.21 (4.20-5.50) X10*6/uL Hgb 11.4 L (12.0-16.0) g/dl Hct 36.6 L (37.0-47.0) % MCV 86.9 (80.0-98.0) fL MCH 27.1 (27.0-33.0) pg MCHC 31.1 (31.0-35.0) g/dl RDW 15.1 (11.0-16.0) % Plt Count 260 (160-400) X10*3/uL MPV 10.5 (9.4-12.3) fL Immature Gran % (Auto) 0.4 (0.0-0.4) % Neut % (Auto) 71.0 (45-73) % Lymph % (Auto) 21.2 (20-40) % Terry % (Auto) 6.6 (2-11) % Eos % (Auto) 0.4 (0-4) % Baso % (Auto) 0.4 (0-2) % Lymph # (Auto) 1.1 L (1.2-4.9) X10*3/uL Terry # (Auto) 0.3 (0.1-1.2) X10*3/uL Eos # (Auto) 0.0 (0.0-0.4) X10*3/uL Baso # (Auto) 0.0 (0.0-0.2) X10*3/uL Abs Immat Gran (auto) 0.02 (0.00-0.03) X10*3/uL Absolute Neuts (auto) 3.7 (2.0-8.3) x10*3/uL Absolute Nucleated RBC 0.000 (0.0-0.012) X10*3/uL Nucleated RBC % (auto) 0.0 (0.0-0.2) /100WBC Whole Blood PT (11.1-13.5) sec Whole Blood INR (0.9-1.1) Sodium (135-145) mmol/L Potassium (3.3-5.1) mmol/L Chloride (96-108) mmol/L Carbon Dioxide (22-29) mmol/L Anion Gap (12-20) BUN (9-16) mg/dL Creatinine (0.5-1.4) mg/dL Estim Creat Clear Calc Estimated GFR POC Glucose (60-115) mg/dL Random Glucose (60-115) mg/dL Calcium (8.4-10.2) mg/dL Total Bilirubin (0.0-1.0) mg/dL Direct Bilirubin (0.0-0.5) mg/dL AST (5-31) U/L ALT (0-31) U/L Alkaline Phosphatase (39-117) U/L Total Creatine Kinase (26-140) U/L Troponin I High Sens < 3.5 (<3.5-17.0) ng/L B-Natriuretic Peptide 28 (<100) pg/mL Total Protein (6.5-8.0) g/dL Albumin (3.5-5.0) g/dL Lipase (8-78) U/L COVID-19 (GIANNI) (Negative) COVID-19 Clin Com 03/07/23 Range/Units 14:39 WBC (4.8-10.8) X10*3/uL RBC (4.20-5.50) X10*6/uL Hgb (12.0-16.0) g/dl Hct (37.0-47.0) % MCV (80.0-98.0) fL MCH (27.0-33.0) pg MCHC (31.0-35.0) g/dl RDW (11.0-16.0) % Plt Count (160-400) X10*3/uL MPV (9.4-12.3) fL Immature Gran % (Auto) (0.0-0.4) % Neut % (Auto) (45-73) % Lymph % (Auto) (20-40) % Terry % (Auto) (2-11) % Eos % (Auto) (0-4) % Baso % (Auto) (0-2) % Lymph # (Auto) (1.2-4.9) X10*3/uL Terry # (Auto) (0.1-1.2) X10*3/uL Eos # (Auto) (0.0-0.4) X10*3/uL Baso # (Auto) (0.0-0.2) X10*3/uL Abs Immat Gran (auto) (0.00-0.03) X10*3/uL Absolute Neuts (auto) (2.0-8.3) x10*3/uL Absolute Nucleated RBC (0.0-0.012) X10*3/uL Nucleated RBC % (auto) (0.0-0.2) /100WBC Whole Blood PT (11.1-13.5) sec Whole Blood INR (0.9-1.1) Sodium (135-145) mmol/L Potassium (3.3-5.1) mmol/L Chloride (96-108) mmol/L Carbon Dioxide (22-29) mmol/L Anion Gap (12-20) BUN (9-16) mg/dL Creatinine (0.5-1.4) mg/dL Estim Creat Clear Calc Estimated GFR POC Glucose (60-115) mg/dL Random Glucose (60-115) mg/dL Calcium (8.4-10.2) mg/dL Total Bilirubin (0.0-1.0) mg/dL Direct Bilirubin (0.0-0.5) mg/dL AST (5-31) U/L ALT (0-31) U/L Alkaline Phosphatase (39-117) U/L Total Creatine Kinase (26-140) U/L Troponin I High Sens (<3.5-17.0) ng/L B-Natriuretic Peptide (<100) pg/mL Total Protein (6.5-8.0) g/dL Albumin (3.5-5.0) g/dL Lipase (8-78) U/L COVID-19 (GIANNI) Negative (Negative) COVID-19 Clin Com See Note Independent Interpretation I performed an independent interpretation of an: EKG and CT Scan Radiology Impression Discussion of test interpretation with radiology: I discussed test interpretation with the radiologist and I have reviewed the radiologist's reading. Independent Historian Clinical information obtained from an independent historian. History obtained from or confirmed by: Other withhold the nurse over at her facility who has known her since at least 2018 his only for 5 years concern for stroke and this new onset sudden onset altered mental status. Discharge Plan Discharge Clinical Impression: Altered mental status, Syncope, Inability to speak Patient Disposition: Admitted As Inpatient
[2022-08-17 13:54] VITALS: BP 115/41; PULSE 71; RESP 10; TEMP 36.6; O2SAT 100
--- NOTE | 2022-08-17 13:55 | ECG_ITS ---
Test Reason : syncope vs stroke Blood Pressure : / mmHG Vent. Rate : 071 BPM Atrial Rate : 071 BPM P-R Int : 158 ms QRS Dur : 076 ms QT Int : 380 ms P-R-T Axes : 049 -40 -10 degrees QTc Int : 412 ms Artifact in tracing Sinus rhythm with Premature atrial complexes Left axis deviation Nonspecific ST and T wave abnormality Abnormal ECG When compared with ECG of 25-MAY-2020 10:52, Premature atrial complexes are now Present T wave inversion less evident in Inferior leads T wave inversion no longer evident in Anterior leads QT has shortened Referred By: Flavio Landon Electronically Signed By:MALKA LUNA
[2022-08-17 14:21] LABS: Glucose, Whole Blood 105 mg/dL (60-115)
[2022-08-17 14:26] LABS: Prothrombin Time Whole Bld POC 14.7 sec (11.1-13.5); ~PT, ~INR - Anti Coag Clinic 1.2 (0.9-1.1)
[2022-08-17] MEDS: iohexoL 350 MG/ML 100 ML INFUS..BTL IV (14:28)
[2022-08-17 14:44] VITALS: BP 136/66; PULSE 73; RESP 16; O2SAT 99
[2022-08-17 14:45] LABS: MANUAL DIFF FLAG NO
--- NOTE | 2022-08-17 14:46 | PC.NURSE ---
pt coming from [facility] for presenting as unresponsive, pt is currently resting with her eyes shut, difficulty to do a proper stroke assessment because pt is not speaking at this time or opening her eyes to follow simple command, after few times instructing the pt to lift her arm to put a bp cuff on pt will hold her arm up but not put it back down, then when the pt is instructed to put the arm back down pt will rest the arm back down. pt will grunt at times when asked a question, no visible facial droop noticed. vs stable
[2022-08-17 14:50] LABS: Basophils Percent Auto 0.4 % (0-2); Eosinophils Percent Auto 0.4 % (0-4); Hematocrit 36.6 % (37.0-47.0); Hemoglobin 11.4 g/dl (12.0-16.0); Imm Gran Abs Auto 0.02 X10*3/uL (0.00-0.03); Imm Gran Pct Auto 0.4 % (0.0-0.4); Lymphocytes Absolute Auto 1.1 X10*3/uL (1.2-4.9); Lymphocytes Percent Auto 21.2 % (20-40); Mean Corpuscular HGB Conc 31.1 g/dl (31.0-35.0); Mean Corpuscular Hemoglobin 27.1 pg (27.0-33.0); Mean Corpuscular Volume 86.9 fL (80.0-98.0); Mean Platelet Volume 10.5 fL (9.4-12.3); Monocytes Absolute Auto 0.3 X10*3/uL (0.1-1.2); Monocytes Percent Auto 6.6 % (2-11); Neutrophils Absolute Auto 3.7 x10*3/uL (2.0-8.3); Platelet Count 260 X10*3/uL (160-400); Red Blood Count 4.21 X10*6/uL (4.20-5.50); Red Cell Distribution Width 15.1 % (11.0-16.0); White Blood Count 5.1 X10*3/uL (4.8-10.8)
[2022-08-17 15:05] LABS: Alanine Aminotransferase 9 U/L (0-31); Albumin Level 4.3 g/dL (3.5-5.0); Alkaline Phosphatase 112 U/L (39-117); Anion Gap 16 (12-20); Aspartate Amino Transferase 16 U/L (5-31); Bilirubin Direct < 0.2 mg/dL (0.0-0.5); Bilirubin Total 0.3 mg/dL (0.0-1.0); Blood Urea Nitrogen 29 mg/dL (9-16); Calcium 9.7 mg/dL (8.4-10.2); Carbon Dioxide 20 mmol/L (22-29); Chloride 106 mmol/L (96-108); Creatinine Clr Calc Pharmacy 30.4; Estimated Glomerular Filt Rate 28; Glucose Random 105 mg/dL (60-115); Potassium 4.7 mmol/L (3.3-5.1); Sodium 137 mmol/L (135-145); Total Protein 7.7 g/dL (6.5-8.0)
[2022-08-17 15:06] LABS: COVID-19 Test Negative (Negative); IDNOW Serial# 16C4AD1C
[2022-08-17 15:09] LABS: B Type Natriuretic Peptide 28 pg/mL (<100)
--- NOTE | 2022-08-17 15:09 | PC.NURSE ---
Son now at bedside; patient communicating with him and staff regarding needs.
[2022-08-17 15:14] LABS: Troponin-I High Sensitivity < 3.5 ng/L (<3.5-17.0)
[2022-08-17 15:20] LABS: Lipase 23 U/L (8-78)
[2022-08-17] MEDS: 0.9 % Sodium Chloride 1,000 ML 999 ML IV (15:38)
--- NOTE | 2022-08-17 16:03 | MHC.STROKE ---
1400 I RECEIVED A NANCY FROM ED THAT THEY WERE ACTIVATING THE STROKE PROTOCOL. AT 1229 EMS PRE-NOTIFIED NO STROKE ALERT, AMS ?UNRESPONSIVE, FROM LOCAL [facility]. ARRIVED AT [facility] 1234. CTH DONE AT 1407, NO BLEED, FOLLOWED BY CTA H/N NO LVO. CARE TEAM WAS DETERMINING ELIGIBILITY AND CLARIFYING LKW, IT COULD BE AROUND 1115 BUT THAT TIME COULD BE UNRELIABLE, DISCOVERED BY MICROPALEONTOLOGIST AT 1150. INITIAL NIHSS = 9, ON ELIQUIS HISTORY OF PE, ?AFIB, THEREFORE EXCLUDED FROM THROMBOLYTICS. PLUS THE TIMELINE IS QUESTIONABLE. I SAW HER AND REPEATED THE NIHSS = 0 AND HER SON WAS PRESENT AND HE CONCURRED THAT SHE WAS BACK TO HER BASELINE, HE SAID SHE GOT LIKE THIS THE LAST TIME SHE A UTI. AT 1550 I DID A NURSING SWALLOW SCREEN PRIOR TO PO AND SHE PASSED. CASE WAS REVIEWED WITH THE RN ETIENNE AND DR GUIDO. SEE HIS NOTE.
--- NOTE | 2022-08-17 16:23 | P.HPHOSP_ITS ---
History of Present Illness Date of Service: 08/17/22 Attending physician on admission: Curtis Rodney Chief Complaint: Syncope Pt is a 82-year-old female with a PMH significant for?HTN, HLD, hypothyroidism, paroxysmal AFib, and hx of bilateral PE on 05/29/2020 who presents to the ED after being found unarousable at [facility]. Pt having difficulty speaking at time of interview and unable to relate events from the day. Responds very slowly with a pronounced stutter that sometimes prevents answering questions. Spoke with the son over telephone and he states that his mother at baseline has a good memory, and can talk in full sentences without stuttering. Says he has never seen his mother like this before. Son notes that his mother was able to tell him what happened to her today when he visited her in the ED. 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 Today she was praying for her granddaughter, whose birthday it is. After she was done she turned around and saw a vision of her son, the father of her granddaughter who last year in September, in the doorway. She was then in shock , could feel her heart racing, and found she could not speak. Went back to her room to buy a stamp to send out a birthday card and then passed out. She next remembers waking up in the hospital still unable to speak. Staff at the facility say they found the pt slumped over to her side in her room, non-responsive. Pt states her only complaints are a headache since this morning and her dysarthria. Denies chest pain/pressure, SOB. No abdominal pain. Complains of chronic numbness, tingling, and swelling in legs and feet bilaterally. In the ED labs were significant for H&H of 11.4/36.6, BUN elevated at 29, creatinine 1.72 (baseline 1.20), and creatinine kinase 261. UA pending. CXR showed minimal right apical atelectasis. CT?of head showed no acute intracranial pathology. CTA showed no evidence of acute intracranial hemorrhage or edematous territorial infarction. Moderate underlying micro angiopathy and generalized cerebral volume loss. No proximal occlusion or flow limiting stenosis. EKG demonstrated normal sinus rhythm with PACs without evidence of ST elevations or depressions. Pt was treated with IVF. Pt will be admitted to observation for treatment and further evaluation of syncopal episode. Review of Systems Review of Systems: Syncopal episode Dysarthria Chronic numbness, tingling, swelling in legs and feet bilaterally Denies chest pain/pressure, palpitations No shortness of breath Denies fever, chills, nausea, vomiting, abdominal pain Yes all other systems are reviewed and are negative [facility] Medical History Hyperlipidemia Hypertension Hypothyroidism NSTEMI (non-ST elevated myocardial infarction) Social History Household Members: None Housing: Assisted Living Facility Do you presently have visiting nurse or other home services: No Patient Tobacco Use Status: Never used Tobacco e-Cigarette/Vaping Use: Never Used service: No Current occupational status: unemployed and retired Meds Allergies Allergy/AdvReac Type Severity Reaction Status Date / Time From CELEXA Allergy Unknown UNKNOWN Uncoded 02/28/20 18:03 Home Medications Medication Instructions Recorded Confirmed Last Taken Type cholecalciferol (vitamin D3) 25 25 mcg PO DAILY 05/23/20 08/17/22 08/17/22 History mcg (1,000 unit) tablet (Vitamin D3) levothyroxine 50 mcg tablet 50 mcg PO DAILY 05/23/20 08/17/22 08/17/22 History lisinopril 20 mg tablet 20 mg PO DAILY 05/23/20 08/17/22 08/17/22 History pantoprazole 20 mg tablet,delayed 20 mg PO DAILY 05/23/20 08/17/22 05/23/20 History release polyvinyl alcohol 1.4 % eye drops 1 drp ophthalmic (eye) BID 05/23/20 08/17/22 05/23/20 History (Artificial Tears (polyvinyl alcohol)) trazodone 50 mg tablet 50 mg PO BEDTIME 05/23/20 08/17/22 08/16/22 History apixaban 5 mg tablet (Eliquis) 5 mg PO BID 08/17/22 08/17/22 08/17/22 History buspirone 7.5 mg tablet 7.5 mg PO BID 08/17/22 08/17/22 08/17/22 History camphor-menthol 0.5 %-0.5 % lotion 1 appl topical TID 08/17/22 08/17/22 08/17/22 History (Amorna Original) cyanocobalamin (vitamin B-12) 1,000 mcg PO DAILY 08/17/22 08/17/22 08/17/22 History 1,000 mcg tablet (Vitamin B-12) hydrochlorothiazide 25 mg tablet 25 mg PO DAILY 08/17/22 08/17/22 08/17/22 History metoprolol tartrate 50 mg tablet 75 mg PO BID 08/17/22 08/17/22 08/17/22 History (Lopressor) simvastatin 20 mg tablet 20 mg PO BEDTIME 08/17/22 08/17/22 08/16/22 History Physical Exam Vital Signs and Narrative: Vital Signs: Last Vital Signs Temp 97.9 F 08/17/22 13:54 Pulse 73 08/17/22 14:44 Resp 16 08/17/22 14:44 BP 136/66 08/17/22 14:44 Pulse Ox 99 08/17/22 14:44 O2 Del Method 08/17/22 14:44 BMI result Body Mass Index 29.0 General: AOx3, no acute distress. Resp: CTA bilaterally CVS: S1, S2, RRR GI: +BS, NT, no distention Skin: No rash Neuro: Motor grossly intact bilaterally. Capable of moving all extremities independently. Extremities: +1 pitting edema bilaterally. Psych: Pt stuttering to begin sentences. Slow to respond. Results Labs 08/17/22 14:39 08/17/22 14:39 Labs: Laboratory Results - last 24 hr 08/17/22 08/17/22 08/17/22 14:18 14:18 14:39 MCV MCH MCHC RDW Plt Count MPV Immature Gran % (Auto) Neut % (Auto) Lymph % (Auto) Dolores % (Auto) Eos % (Auto) Baso % (Auto) Lymph # (Auto) Dolores # (Auto) Eos # (Auto) Baso # (Auto) Abs Immat Gran (auto) Absolute Neuts (auto) Absolute Nucleated RBC Nucleated RBC % (auto) Whole Blood PT 14.7 H Whole Blood INR 1.2 H Anion Gap 16 Estim Creat Clear Calc 30.4 Estimated GFR 28 POC Glucose 105 Random Glucose 105 Calcium 9.7 D Total Bilirubin 0.3 Direct Bilirubin < 0.2 AST 16 ALT 9 Alkaline Phosphatase 112 Total Creatine Kinase 261 H Troponin I High Sens B-Natriuretic Peptide Total Protein 7.7 Albumin 4.3 Lipase 23 COVID-19 (GIANNI) COVID-19 [employer] Com 08/17/22 08/17/22 08/17/22 14:39 14:39 14:39 MCV 86.9 MCH 27.1 MCHC 31.1 RDW 15.1 Plt Count 260 MPV 10.5 Immature Gran % (Auto) 0.4 Neut % (Auto) 71.0 Lymph % (Auto) 21.2 Dolores % (Auto) 6.6 Eos % (Auto) 0.4 Baso % (Auto) 0.4 Lymph # (Auto) 1.1 L Dolores # (Auto) 0.3 Eos # (Auto) 0.0 Baso # (Auto) 0.0 Abs Immat Gran (auto) 0.02 Absolute Neuts (auto) 3.7 Absolute Nucleated RBC 0.000 Nucleated RBC % (auto) 0.0 Whole Blood PT Whole Blood INR Anion Gap Estim Creat Clear Calc Estimated GFR POC Glucose Random Glucose Calcium Total Bilirubin Direct Bilirubin AST ALT Alkaline Phosphatase Total Creatine Kinase Troponin I High Sens < 3.5 B-Natriuretic Peptide 28 Total Protein Albumin Lipase COVID-19 (GIANNI) COVID-19 [employer] Com 08/17/22 14:39 MCV MCH MCHC RDW Plt Count MPV Immature Gran % (Auto) Neut % (Auto) Lymph % (Auto) Dolores % (Auto) Eos % (Auto) Baso % (Auto) Lymph # (Auto) Dolores # (Auto) Eos # (Auto) Baso # (Auto) Abs Immat Gran (auto) Absolute Neuts (auto) Absolute Nucleated RBC Nucleated RBC % (auto) Whole Blood PT Whole Blood INR Anion Gap Estim Creat Clear Calc Estimated GFR POC Glucose Random Glucose Calcium Total Bilirubin Direct Bilirubin AST ALT Alkaline Phosphatase Total Creatine Kinase Troponin I High Sens B-Natriuretic Peptide Total Protein Albumin Lipase COVID-19 (GIANNI) Negative COVID-19 Clin Com See Note Imaging Radiologist's Impressions: Impressions Head CT 08/17/22 14:10 IMPRESSION: No acute intracranial pathology. This critical result was discussed with Flavio Tamayo on 08/17/2022, 2:30 PM and it was ascertained that the content and urgency of the report was understood at the time of direct communication. Head/Neck CTA 08/17/22 14:19 IMPRESSION: 1. No evidence of acute intracranial hemorrhage or edematous territorial infarction. Moderate underlying microangiopathy and generalized cerebral volume loss. 2. CTA of the head and neck without proximal occlusion or flow-limiting stenosis. This critical result was discussed with SHWETA Francis at 14:50 on 08/17/2022 and it was ascertained that the content and urgency of the report was understood at the time of direct communication. Chest X-Ray 08/17/22 14:30 IMPRESSION: Minimal right apical atelectasis. Otherwise clear lungs. Assessment and Plan (1) Syncope: Status: Acute (2) Dysarthria and anarthria: Status: Acute (3) KASSIE (acute kidney injury): Status: Resolved Plan Pt is a 82-year-old female with a PMH significant for?HTN, HLD, hypothyroidism, paroxysmal AFib, and hx of bilateral PE on 05/29/2020 who presents to the ED after being found unarousable at [facility]. Pt having difficulty speaking at time of interview and unable to relate events from the day. Responds very slowly with a pronounced stutter that sometimes prevents answering questions. Pt will be admitted to observation for treatment and further evaluation of syncopal episode and dysarthria. Syncope Unclear etiology, psychogenic versus physiological Stroke workup negative: CT of head showed no acute intracranial pathology. CTA of head and neck showed no evidence of acute intracranial hemorrhage or edematous territorial infarction, without proximal occlusion or flow-limiting stenosis, but did show moderate underlying microangiopathy and generalized cerebral volume loss. NPO pending swallow evaluation Echocardiogram Neurology consult Dysarthria Unclear etiology, psychogenic versus neurologic Neurology consult KASSIE Patient's creatinine 1.72, above baseline Likely secondary to dehydration d/t decreased p.o. intake Patient received IVF in ED IVF: lactated ringers Follow BMP Headache CT of head and CTA of head and neck negative for acute intracranial pathologies Acetaminophen for pain management Elevated BUN Chronically elevated, seems stable at baseline Hypothyroidism Continue levothyroxine HLD Continue statin HTN Continue amlodipine, hydrochlorothiazide GERD Continue pantoprazole Full Code Attending:? DVT Prophylaxis: Lovenox Pt will require a hospitalization of at least two nights for treatment and further evaluation of syncopal episode, dysarthria, and ?KASSIE with IVF. Time Spent With Patient Time: Total time managing care of this patient today ____ minutes. Quality Stroke Does the patient have a stroke diagnosis?: No VTE Prior VTE?: No VTE Risk Level:: Medical - moderate - high VTE Device Contraindication: Treatment Not Indicated VTE Drug Contraindication: N/A - Med Ordered
--- NOTE | 2022-08-17 17:02 | PHA.MEDREC ---
Pharmacy Consult ? Medication Reconciliation Pharmacy has completed the medication reconciliation.
[2022-08-17 17:58] VITALS: BP 129/67; PULSE 70; RESP 20; TEMP 36.6; O2SAT 99
--- NOTE | 2022-08-17 18:37 | PM.EVENT ---
Event Note Date of Service: 08/17/22 Event Note: This patient is seen and examined with APC. The patient came to the hospital because of dysarthria,? In her room Room of syncope, ? staretd at [facility] in her facility -when she had sudden vision of her son who has long ago afterwards she had dysarthria and possible question of syncope. Lab imaging, EKG reviewed. CBC for seems fine, BMP alvarez: BUN of 29, creatinine 1.7 CT and negative Chest x-ray seems mild atelectasis Physical exam : Limited Had some stuttering moves all extremities assessment and plan coordinated in APCs note, Agree with the plan in addition: ? Possible syncopal: Monitor on tele, neurology evaluation added KASSIE-start hydration Time Spent With Patient Time: Total time managing care of this patient today ____ minutes.
[2022-08-17] MEDS: Lactated Ringers 1,000 ML 100 ML IVCONT (19:39)
--- NOTE | 2022-08-17 19:41 | MHC.CM.PN ---
Family and nurses at bedside with care. Will return.
[2022-08-17 19:44] LABS: Appearance Urine Clear; Color Urine Yellow; Glucose Urine UA Negative (Negative); Leukocyte Esterase Urine Moderate (2+) (Negative); Nitrite Urine Negative (Negative); UMIC TRIGGER UACC YES; Urine Blood Negative (Negative); Urine Ketones Negative (Negative); Urine Protein Negative (Neg-Trace)
[2022-08-17 19:55] VITALS: BP 128/60; PULSE 69; RESP 17; TEMP 36.4; O2SAT 99
[2022-08-17 20:01] LABS: Glucose, Whole Blood 99 mg/dL (60-115)
[2022-08-17 21:13] LABS: INTERNATIONAL NORM RATIO 1.3 (0.9-1.1); Prothrombin Time 14.9 SEC (10.0-13.1)
[2022-08-17 21:15] LABS: Partial Thromboplastin Time 31.2 SEC (26.0-36.4)
[2022-08-17 21:22] LABS: Bacteria Urine 1+ (None Seen); Hyaline Casts Urine 0-2 /LPF (0-2); RBC Urine 0-2 /HPF (0-2); UACC Culture Trigger YES; WBC Urine 21-50 /HPF (0-5)
[2022-08-17 21:29] LABS: Stroke Lab Use COMPLETE
--- NOTE | 2022-08-17 21:42 | MHC.CM.PN ---
BARBA 08/17. Pt sleeping. Reviewed BARBA with daughter/HCP. CM interview with family on telephone, Graham Pickett (son) and HCP/daughter Desire Pickett ([phone]). Pt lives at [facility]. Family very happy with care. States there mother is very happy there. Per family, pt had a syncopal episode after she was praying for her family and saw her son. 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 Family expresses several times that pt has total family support and love. Uses a cane. Independent at [facility].Fully vaccinated per daughter. Unsure taxation consultant. Had boosters. D/C plan: Return to [facility]. Will need transport.
[2022-08-17] MEDS: Atorvastatin Calcium 10 MG TABLET PO (22:27)
[2022-08-17] MEDS: busPIRone HCl 5 MG TABLET 7.5 MG PO (22:28)
[2022-08-17] MEDS: Metoprolol Tartrate 25 MG TABLET 75 MG PO (22:28)
[2022-08-17] MEDS: Apixaban 5 MG TABLET PO (22:29)
[2022-08-17] MEDS: traZODone HCL 50 MG TABLET PO (22:29)
[2022-08-17] MEDS: Artificial Tears 15 ML DROPS 1 DROP EYE-BOTH (22:29)
[2022-08-17 22:30] VITALS: BP 113/55; PULSE 76; TEMP 36.6; O2SAT 100
[2022-08-17] MEDS: cefTRIAXone sodium 1 GM in 0.9 % Sodium Chloride 50 ML IV (23:09)
[2022-08-18] VITALS (8 sets, daily range): BP systolic 116–148; BP diastolic 57–74; PULSE 62–82; RESP 17–20; TEMP 35.8–37.2; O2SAT 97–100; BMI 31.1
--- NOTE | 2022-08-18 | EEG_ITS ---
FINDINGS: The waking background activity consists of low voltage fast frequency, seen diffusely intermixed with low voltage posterior 7 to 8 Hz slow alpha. Photic stimulation is without activation. Hyperventilation is omitted. No paroxysmal features are seen. IMPRESSION: This is a borderline abnormal EEG due to mild background slowing. No paroxysmal features are seen to suggest a seizure disorder. MD LIOR Friend/KIKI / [id number]
[2022-08-18] MEDS: Lactated Ringers 1,000 ML 100 ML IVCONT (05:08)
--- NOTE | 2022-08-18 07:00 | CA_ITS ---
Transthoracic Echocardiogram Patient (Last, First, Middle): Erich Pickett, Gender: Female Date of : 1940 Age: 82 Procedure Date: 08/18/2022 Procedure Type: Transthoracic Echocardiogram Location: [facility] [place] Height: 177.8 cm Weight: 97.98 kg BSA: 2.16 m2 Heart Rate: 64 bpm BP: 148 / 73 mmHg Dietetics Teacher: SB Referring MD: Curtis Rodney MD Symptoms: syncpe Study Quality: Adequate ECG Rhythm: Sinus Conclusions: - The left ventricular systolic function is normal. The calculated ejection fraction is 64% by biplane method. - There is mild calcification of the aortic valve. - There is mild mitral annular calcification. - There is mild tricuspid valve regurgitation. Findings Left Ventricle Normal left ventricular cavity size. There is normal left ventricular wall thickness. The left ventricular systolic function is normal. The calculated ejection fraction is 64% by biplane method. There is no evidence of regional wall motion abnormalities. Diastolic function is normal for age. LV peak GLS -19.3%. Right Ventricle Normal right ventricular cavity size. There is low normal right ventricular systolic function. Atria Both atria are normal in size. Aortic Valve There is a normal trileaflet aortic valve. There is mild calcification of the aortic valve. There is no aortic valve stenosis. There is trace (trivial) aortic valve regurgitation. Mitral Valve There is mild mitral annular calcification. There is no mitral valve regurgitation. There is no mitral valve stenosis. Pulmonic Valve There is trace pulmonic valve regurgitation. Tricuspid Valve There is mild tricuspid valve regurgitation. There is no evidence of pulmonary hypertension. Great Vessels The asc aorta is normal in size. Venous The inferior vena cava is normal in size and collapses less than 50% with inspiration. Pericardium/Pleural There is no evidence of pericardial effusion. Prior Study Comparison Changes noted compared to prior study dated: 05/26/2020. See comments on tricuspid regurgitation/pulmonary HTN. Measurements 2D Linear Measurements IVSd: 0.52 0.6-0.9/0.6-1.0 cm LVIDd: 4.83 3.9-5.3/4.2-5.9 cm LVIDd Index: 2.24 2.4-3.2/2.2-3.1 cm/m2 LVIDs: 2.73 2.0-3.6 cm LVPWd: 0.59 0.7-1.1 cm LA Diam: 3.10 2.7-3.8/3.0-4.0 cm LAIDs Index: 1.44 1.5-2.3 cm/m2 LV Mass: 101.33 67-162/88-224 g LV Mass Index: 46.91 43-95/49-115 g/m2 LVOT Diam: 2.00 3.0+(-)1.3 cm 2D Systolic Function EF 4C: 64.10 >55% EF 2C: 63.30 >55% EF BiP: 64.40 >55% Mitral Valve MV Pk E: 0.75 MV PK A: 1.29 MV Decel Time: 271.00 E/A: 0.60 E'Lateral: 7.07 E'Medial: 3.81 E/E' Med: 19.80 E/E' Lat: 10.70 PHT: 79.00 MVA PHT: 2.78 Decel Wagoner: 2.78 Aortic Valve AoV Pk Wilfrido: 1.32 AoV Pk Grad: 7.00 MYNOR: 2.19 LVOT LVOT Pk Wilfrido: 0.92 LVOT Mn Wilfrido: 0.61 LVOT VTI: 0.21 LVOT Pk Grad: 3.00 LVOT Mn Grad: 2.00 LVOT Diam: 2.00 LVOT Area: 3.14 Diastolic Function MV Pk E: 0.75 MV Pk A: 1.29 E/A: 0.60 E'Medial: 3.81 E/E' Med: 19.80 E' Laterial: 7.07 E/E' Lat: 10.70 Right Ventricle TAPSE (mm): 16.60 TVS' Wilfrido: 8.80 Tricuspid Valve TR Pk Wilfrido: 2.20 TR Pk Grad: 19.00 RA Press: 8.00 RVSP: 27.00 Great Vessels Aorta Sinus of Valsalva: 3.20 2.0-3.5 cm Ao Asc: 3.50 2.1-3.4 cm Pulmonary Valve PV Pk Wilfrido: 0.69 Peak PV Grad: 2.00 Updated in Other Vendor System with Status of Final Melchor Arnold MD electronically signed on 08/18/2022 10:36:32 AM with status of Final
[2022-08-18 08:42] LABS: Anion Gap 15 (12-20); Blood Urea Nitrogen 19 mg/dL (9-16); Calcium 9.7 mg/dL (8.4-10.2); Carbon Dioxide 23 mmol/L (22-29); Chloride 106 mmol/L (96-108); Creatinine Clr Calc Pharmacy 46.6; Estimated Glomerular Filt Rate 45; Glucose Random 95 mg/dL (60-115); Sodium 139 mmol/L (135-145)
[2022-08-18] MEDS: Cyanocobalamin (Vitamin B-12) 1,000 MCG TABLET 1000 MCG PO (09:42)
[2022-08-18] MEDS: Apixaban 5 MG TABLET PO ×2 (09:42→21:17)
[2022-08-18] MEDS: Metoprolol Tartrate 25 MG TABLET 75 MG PO ×2 (09:42→21:16)
[2022-08-18] MEDS: busPIRone HCl 5 MG TABLET 7.5 MG PO ×2 (09:43→21:14)
[2022-08-18] MEDS: Cholecalciferol (Vitamin D3) 25 MCG TABLET PO (09:43)
[2022-08-18] MEDS: amLODIPine Besylate 5 MG TABLET PO (09:43)
[2022-08-18] MEDS: Artificial Tears 15 ML DROPS 1 DROP EYE-BOTH ×2 (09:43→21:21)
--- NOTE | 2022-08-18 10:58 | P.CNNE_ITS ---
History of Present Illness Data of Consult Service Date: 08/18/22 Primary Care Provider: Unknown Physician HPI Reason for consult: ? stroke and syncope This is a 82-year-old female with h/or?HTN, HLD, hypothyroidism, paroxysmal AFib, and hx of bilateral PE on 05/29/2020 who presents to the ED after being found unarousable at [facility]. Pt having difficulty speaking at time of interview and unable to relate events from the day.? Responds very slowly with a pronounced stutter that sometimes prevents answering questions. Spoke with the son over telephone and he states that his mother at baseline has a good memory, and can talk in full sentences without stuttering.? Says he has never seen his mother like this before. Son notes that his mother was able to tell him what happened to her today when he visited her in the ED. 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 Today she was praying for her granddaughter, whose birthday it is. After she was done she turned around and saw a vision of her son, the father of her granddaughter who last year in September, in the doorway. She was then in shock , could feel her heart racing, and found she could not speak. Went back to her room to buy a stamp to send out a birthday card and then passed out. She next remembers waking up in the hospital still unable to speak. Staff at the facility say they found the pt slumped over to her side in her room, non-responsive. Pt states her only complaints are a headache since this morning and her dysarthria. Denies chest pain/pressure, SOB. No abdominal pain.? Complains of chronic numbness, tingling, and swelling in legs and feet bilaterally. Review of Systems Review of Systems: Syncopal episode Dysarthria Chronic numbness, tingling, swelling in legs and feet bilaterally Denies chest pain/pressure, palpitations No shortness of breath Denies fever, chills, nausea, vomiting, abdominal pain Yes all other systems are reviewed and are negative and Unobtainable due to mental status PMFSH Past Medical History Medical History Hyperlipidemia Hypertension Hypothyroidism NSTEMI (non-ST elevated myocardial infarction) Social History Social History Household Members: None Housing: Assisted Living Facility Do you presently have visiting nurse or other home services: No Patient Tobacco Use Status: Never used Tobacco e-Cigarette/Vaping Use: Never Used service: No Current occupational status: unemployed and retired Meds Allergies Allergy/AdvReac Type Severity Reaction Status Date / Time From CELEXA Allergy Unknown UNKNOWN Uncoded 02/28/20 18:03 Active Medications: Current Medications Acetaminophen (Acetaminophen 325 Mg Tablet) 650 mg PO Q6H PRN PRN Reason: Pain, Mild (Pain Scale 1-3) Amlodipine Besylate (Amlodipine Besylate 5 Mg Tablet) 5 mg PO DAILY [facility]; Protocol Last Admin: 08/18/22 09:43 Dose: 5 mg Apixaban (Apixaban 5 Mg Tablet) 5 mg PO BID [facility] Last Admin: 08/18/22 09:42 Dose: 5 mg Artificial Tears (Artificial Tears 15 Ml Drops) 1 drop EYE-BOTH BID [facility] Last Admin: 08/18/22 09:43 Dose: 1 drop Atorvastatin Calcium (Atorvastatin Calcium 10 Mg Tablet) 10 mg PO BEDTIME [facility] Last Admin: 08/17/22 22:27 Dose: 10 mg Buspirone HCl (Buspirone Hcl 5 Mg Tablet) 7.5 mg PO BID [facility] Last Admin: 08/18/22 09:43 Dose: 7.5 mg Cyanocobalamin (Cyanocobalamin (Vitamin B-12) 1,000 Mcg Tablet) 1,000 mcg PO DAILY [facility] Last Admin: 08/18/22 09:42 Dose: 1,000 mcg Docusate Sodium (Docusate Sodium 100 Mg Capsule) 100 mg PO DAILY PRN PRN Reason: Constipation Ceftriaxone Sodium 1 gm/ (Sodium Chloride) 50 mls @ 100 mls/hr IV Q24H [facility] Last Infusion: 08/17/22 23:40 Dose: Infused Levothyroxine Sodium (Levothyroxine Sodium 50 Mcg Tablet) 50 mcg PO DAILY@0600 [facility] Last Admin: 08/18/22 05:09 Dose: Not Given Metoprolol Tartrate (Metoprolol Tartrate 25 Mg Tablet) 75 mg PO BID [facility]; Prot ocol Last Admin: 08/18/22 09:42 Dose: 75 mg Omeprazole (Omeprazole 20 Mg Capsule.Dr) 20 mg PO DAILY@0630 [facility] Last Admin: 08/18/22 05:09 Dose: Not Given Ondansetron HCl (Ondansetron Hcl 4 Mg/2 Ml Vial) 4 mg IVPUSH Q8H PRN PRN Reason: Nausea and Vomiting Pharmacy Consult (Consult Rx Perform Med Rec) 1 each MISCELLANE ONCE PRN PRN Reason: Consult order Sodium Chloride (0.9 % Sodium Chloride Flush 3 Ml Syringe) 3 ml IVFLUSH QSHIFT [facility] Last Admin: 08/18/22 09:42 Dose: Not Given Trazodone HCl (Trazodone Hcl 50 Mg Tablet) 50 mg PO BEDTIME [facility] Last Admin: 08/17/22 22:29 Dose: 50 mg Vitamin D (Cholecalciferol (Vitamin D3) 25 Mcg Tablet) 25 mcg PO DAILY [facility] Last Admin: 08/18/22 09:43 Dose: 25 mcg Home Medications Medication Instructions Recorded Confirmed Last Taken Type cholecalciferol (vitamin D3) 25 25 mcg PO DAILY 05/23/20 08/17/22 08/17/22 History mcg (1,000 unit) tablet (Vitamin D3) levothyroxine 50 mcg tablet 50 mcg PO DAILY 05/23/20 08/17/22 08/17/22 History lisinopril 20 mg tablet 20 mg PO DAILY 05/23/20 08/17/22 08/17/22 History pantoprazole 20 mg tablet,delayed 20 mg PO DAILY 05/23/20 08/17/22 05/23/20 History release polyvinyl alcohol 1.4 % eye drops 1 drp ophthalmic (eye) BID 05/23/20 08/17/22 05/23/20 History (Artificial Tears (polyvinyl alcohol)) trazodone 50 mg tablet 50 mg PO BEDTIME 05/23/20 08/17/22 08/16/22 History apixaban 5 mg tablet (Eliquis) 5 mg PO BID 08/17/22 08/17/22 08/17/22 History buspirone 7.5 mg tablet 7.5 mg PO BID 08/17/22 08/17/22 08/17/22 History camphor-menthol 0.5 %-0.5 % lotion 1 appl topical TID 08/17/22 08/17/22 08/17/22 History (Sarbjit Newman) cyanocobalamin (vitamin B-12) 1,000 mcg PO DAILY 08/17/22 08/17/22 08/17/22 History 1,000 mcg tablet (Vitamin B-12) hydrochlorothiazide 25 mg tablet 25 mg PO DAILY 08/17/22 08/17/22 08/17/22 History metoprolol tartrate 50 mg tablet 75 mg PO BID 08/17/22 08/17/22 08/17/22 History (Lopressor) simvastatin 20 mg tablet 20 mg PO BEDTIME 08/17/22 08/17/22 08/16/22 History Physical Exam Vital Signs: Vital Signs: Last Vital Signs Temp 97.2 F 08/18/22 07:06 Pulse 75 08/18/22 07:06 Resp 18 08/18/22 07:06 BP 148/73 H 08/18/22 07:06 Pulse Ox 97 08/18/22 07:06 O2 Del Method 08/18/22 07:06 BMI result Body Mass Index 31.1 Neuro: Other: Nonfocal examination Results Labs 08/17/22 14:39 08/18/22 07:54 Labs: Short CBC 08/17/22 Range/Units 14:39 WBC 5.1 (4.8-10.8) X10*3/uL Hgb 11.4 L (12.0-16.0) g/dl Hct 36.6 L (37.0-47.0) % Plt Count 260 (160-400) X10*3/uL BMP 08/17/22 08/18/22 14:39 07:54 Sodium 137 139 Potassium 4.7 5.0 Chloride 106 106 Carbon Dioxide 20 L 23 BUN 29 H 19 H Creatinine 1.72 H 1.16 Calcium 9.7 D 9.7 Cardiac Enzymes 08/17/22 Range/Units 14:39 Total Creatine Kinase 261 H (26-140) U/L Liver Function 08/17/22 Range/Units 14:39 Total Bilirubin 0.3 (0.0-1.0) mg/dL Direct Bilirubin < 0.2 (0.0-0.5) mg/dL AST 16 (5-31) U/L ALT 9 (0-31) U/L Alkaline Phosphatase 112 (39-117) U/L Albumin 4.3 (3.5-5.0) g/dL Urine 08/17/22 Range/Units 19:19 Urine Color Yellow Urine Appearance Clear Urine pH 5.0 (5.0-9.0) Ur Specific [place] 1.020 (1.005-1.025) Urine Protein Negative (Neg-Trace) mg/dL Urine Glucose (UA) Negative (Negative) mg/dL Microbiology Microbiology Results: Microbiology 08/17/22 21:30 Urine clean catch - Urine shane top Urine Culture - Preliminary Culture too young to evaluate. Assessment and Plan (1) Syncope: Status: Acute Rule out hypotension rule out arrhythmia rule out anxiety from a spiritual experience. Recommendation: Check for orthostatic hypotension. Cardiac monitoring. EEG. (2) Dysarthria and anarthria: Status: Acute Probably related to anxiety. Recommendation MRI of the brain to rule out a small stroke in the speech area (3) KASSIE (acute kidney injury): Status: Resolved Plan Pt is a 82-year-old female with a PMH significant for?HTN, HLD, hypothyroidism, paroxysmal AFib, and hx of bilateral PE on 05/29/2020 who presents to the ED after being found unarousable at [facility]. Pt having difficulty speaking at time of interview and unable to relate events from the day. Responds very slowly with a pronounced stutter that sometimes prevents answering questions. Pt will be admitted to observation for treatment and further evaluation of syncopal episode and dysarthria. Syncope Unclear etiology, psychogenic versus physiological Stroke workup negative: CT of head showed no acute intracranial pathology. CTA of head and neck showed no evidence of acute intracranial hemorrhage or edematous territorial infarction, without proximal occlusion or flow-limiting stenosis, but did show moderate underlying microangiopathy and generalized cerebral volume loss. NPO pending swallow evaluation Echocardiogram Neurology consult Dysarthria Unclear etiology, psychogenic versus neurologic Neurology consult KASSIE Patient's creatinine 1.72, above baseline Likely secondary to dehydration d/t decreased p.o. intake Patient received IVF in ED IVF: lactated ringers Follow BMP Headache CT of head and CTA of head and neck negative for acute intracranial pathologies Acetaminophen for pain management Elevated BUN Chronically elevated, seems stable at baseline Hypothyroidism Continue levothyroxine HLD Continue statin HTN Continue amlodipine, hydrochlorothiazide GERD Continue pantoprazole Full Code Attending:? DVT Prophylaxis: Lovenox Pt will require a hospitalization of at least two nights for treatment and further evaluation of syncopal episode, dysarthria, and ?KASSIE with IVF. Time Spent With Patient Time: Total time managing care of this patient today ____ minutes. Procedures Date of Service Date of Service: 08/18/22
--- NOTE | 2022-08-18 11:27 | P.CDIM_ITS ---
PROVIDER RESPONSE TEXT: To clarify, the appropriate diagnosis supported by the clinical indicators: Encephalopathy: toxic metabolic encephalopathy QUERY TEXT: PHYSICIAN'S DOCUMENTATION REQUEST Date of Query: 08/18/2022 08:02 AM EST Patient Name: ERNA IRIZARRY Admit Date: 08/17/2022 Dear Curtis Rodney, A review of the medical record indicates additional documentation may be needed. Please review below and update the documentation accordingly. Clinical Indicators: Per H&P 08/17/22: Pt having difficulty speaking at time of interview and unable to relate events from the day. Respond s very slowly with a pronounced stutter that sometimes prevents answering questions. Spoke with the son over telephone and he states that his mother at baseline has a good memory Based on the above, could you clarify if any of the following, is the most likely etiology of the con fusion/altered mental status? Encephalopathy Indicate type such as metabolic, toxic, septic, alcoholic, hypertensive, etc. Dementia Indicate type of dementia, such as Alzheimer's, senile, vascular, Lewy body, etc. Acute delirium Indicate known or suspected etiology, such as postoperative, due to narcotics or other drugs, etc. Baseline dementia Indicate type, such as Alzheimer's, senile, vascular, Lewy body, etc., and any associated behavioral disturbances (aggressive, combative, or violent behavior) Acute or subacute confusional state due to Specify known or suspected etiology Other (explain) Clinically unable to determine (explain) Thank you, Iris Ibrahim RN Use of terms such as suspected, likely, concern for, or probable (associated with a specific diagnosi s that is being evaluated, monitored, or treated as if it exists) are acceptable and can be coded in the inpatient se tting, when documented at the time of discharge. Please use your independent medical judgment in providing your response. THIS QUERY IS PART OF THE PERMANENT MEDICAL RECORD
--- NOTE | 2022-08-18 15:39 | HO.PM.IMPN ---
Subjective Subjective Date of Service: 08/18/22 Interval History: syncope Review of Systems Speech seems somewhat improving, also able to speak more better than yesterday Denies any chest pain or shortness of breath or abdominal pain or any dizziness or blurry vision. Physical Exam Vital Signs: Vital Signs: Last Vital Signs Temp 97.0 F 08/18/22 15:07 Pulse 70 08/18/22 15:07 Resp 17 08/18/22 15:07 BP 135/60 08/18/22 15:07 Pulse Ox 100 08/18/22 15:07 O2 Del Method 08/18/22 15:07 BMI result Body Mass Index 31.1 General: AOx3, no acute distress. Resp: CTA bilaterally CVS: S1, S2, RRR GI: +BS, NT, no distention Skin: No rash Neuro: Motor grossly intact bilaterally. Capable of moving all extremities independently. speech seems to be improving Extremities: no cyanosis or edema Objective Data Active Medications Acetaminophen (Acetaminophen 325 Mg Tablet) 650 mg PO Q6H PRN PRN Reason: Pain, Mild (Pain Scale 1-3) Amlodipine Besylate (Amlodipine Besylate 5 Mg Tablet) 5 mg PO DAILY [facility]; Protocol Last Admin: 08/18/22 09:43 Dose: 5 mg Documented By: LYDIA Apixaban (Apixaban 5 Mg Tablet) 5 mg PO BID [facility] Last Admin: 08/18/22 09:42 Dose: 5 mg Documented By: LYDIA Artificial Tears (Artificial Tears 15 Ml Drops) 1 drop EYE-BOTH BID [facility] Last Admin: 08/18/22 09:43 Dose: 1 drop Documented By: LYDIA Atorvastatin Calcium (Atorvastatin Calcium 10 Mg Tablet) 10 mg PO BEDTIME [facility] Last Admin: 08/17/22 22:27 Dose: 10 mg Documented By: RAUL Buspirone HCl (Buspirone Hcl 5 Mg Tablet) 7.5 mg PO BID [facility] Last Admin: 08/18/22 09:43 Dose: 7.5 mg Documented By: LYDIA Cyanocobalamin (Cyanocobalamin (Vitamin B-12) 1,000 Mcg Tablet) 1,000 mcg PO DAILY [facility] Last Admin: 08/18/22 09:42 Dose: 1,000 mcg Documented By: LYDIA Docusate Sodium (Docusate Sodium 100 Mg Capsule) 100 mg PO DAILY PRN PRN Reason: Constipation Ceftriaxone Sodium 1 gm/ (Sodium Chloride) 50 mls @ 100 mls/hr IV Q24H [facility] Last Infusion: 08/17/22 23:40 Dose: 0 mls/hr Documented By: RAUL Levothyroxine Sodium (Levothyroxine Sodium 50 Mcg Tablet) 50 mcg PO DAILY@0600 [facility] Last Admin: 08/18/22 05:09 Dose: Not Given Documented By: DMITRIY Non-Admin Reason: NPO Metoprolol Tartrate (Metoprolol Tartrate 25 Mg Tablet) 75 mg PO BID [facility]; Protocol Last Admin: 08/18/22 09:42 Dose: 75 mg Documented By: LYDIA Omeprazole (Omeprazole 20 Mg Capsule.Dr) 20 mg PO DAILY@0630 [facility] Last Admin: 08/18/22 05:09 Dose: Not Given Documented By: DMITRIY Non-Admin Reason: NPO Ondansetron HCl (Ondansetron Hcl 4 Mg/2 Ml Vial) 4 mg IVPUSH Q8H PRN PRN Reason: Nausea and Vomiting Pharmacy Consult (Consult Rx Perform Med Rec) 1 each MISCELLANE ONCE PRN PRN Reason: Consult order Sodium Chloride (0.9 % Sodium Chloride Flush 3 Ml Syringe) 3 ml IVFLUSH QSHIFT [facility] Last Admin: 08/18/22 09:42 Dose: Not Given Documented By: LYDIA Non-Admin Reason: IV Running Trazodone HCl (Trazodone Hcl 50 Mg Tablet) 50 mg PO BEDTIME [facility] Last Admin: 08/17/22 22:29 Dose: 50 mg Documented By: RAUL Vitamin D (Cholecalciferol (Vitamin D3) 25 Mcg Tablet) 25 mcg PO DAILY [facility] Last Admin: 08/18/22 09:43 Dose: 25 mcg Documented By: LYDIA Labs 08/17/22 14:39 08/18/22 07:54 Labs: Laboratory Results - last 24 hr 08/17/22 08/17/22 08/17/22 19:16 19:19 19:57 PT 14.9 H INR 1.3 H APTT 31.2 Anion Gap Estim Creat Clear Calc Estimated GFR POC Glucose 99 Random Glucose Calcium Urine Color Yellow Urine Appearance Clear Urine pH 5.0 Ur Specific [place] 1.020 Urine Protein Negative Urine Glucose (UA) Negative Urine Ketones Negative Urine Blood Negative Urine Nitrite Negative Ur Leukocyte Esterase Moderate (2+) H Urine RBC 0-2 Urine WBC 21-50 H Ur Squamous Epith Cells 6-10 Urine Bacteria 1+ Hyaline Casts 0-2 08/18/22 07:54 PT INR APTT Anion Gap 15 Estim Creat Clear Calc 46.6 Estimated GFR 45 POC Glucose Random Glucose 95 Calcium 9.7 Urine Color Urine Appearance Urine pH Ur Specific [place] Urine Protein Urine Glucose (UA) Urine Ketones Urine Blood Urine Nitrite Ur Leukocyte Esterase Urine RBC Urine WBC Ur Squamous Epith Cells Urine Bacteria Hyaline Casts Microbiology Microbiology Results: Microbiology 08/17/22 21:30 Urine Culture - Preliminary Urine clean catch - Urine shane top Culture too young to evaluate. Assessment and Plan (1) Dysarthria and anarthria: Status: Acute (2) Syncope: Status: Acute (3) UTI (urinary tract infection): Status: Acute (4) Toxic metabolic encephalopathy: Status: Acute (5) Obesity: Status: Acute Plan 82-year-old female with a PMH significant for?HTN, HLD, hypothyroidism, paroxysmal AFib, and hx of bilateral PE on 05/29/2020 who presents to the ED after being found unarousable at [facility]. Pt having difficulty speaking at time of interview and unable to relate events from the day.? Responds very slowly with a pronounced stutter that sometimes prevents answering questions. Pt will be admitted to observation for treatment and further evaluation of syncopal episode and dysarthria. Syncope-Unclear etiology,? neurocardiogenic speech improving orthostatic neg moniter on tele,echo Stroke workup negative:? CT headand cta seems fine neuro eval noted-added mri.eeg may need cardiology eval also. Toxic metabolic encephalopathy-seems multifactorial(kassie, decreased p.o. intake etc) metal status improving with supportive care. KASSIE improved with hydration ,cr seems near baseline. Likely secondary to dehydration d/t decreased p.o. intake Patient received IVF in ED IVF: lactated ringers Follow BMP Hypothyroidism Continue levothyroxine HLD Continue statin HTN Continue amlodipine, lisiinorpil. GERD Continue pantoprazole concern of uti: patient unable to tell new symptoms on ceftriaxone ,urine cultures pending obesity: encouraged to lose weight. Full Code inaptient need : syncope ,kassie: Need workup for syncope, telemetry monitoring, cardiology evaluation, also the neurological monitoring patient is not at her baseline yet. Time Spent With Patient Time: Total time managing care of this patient today ____ minutes. Quality Stroke Does the patient have a stroke diagnosis?: No VTE Prior VTE?: No VTE Risk Level:: Medical - moderate - high VTE Device Contraindication: Treatment Not Indicated VTE Drug Contraindication: N/A - Med Ordered
--- NOTE | 2022-08-18 16:54 | MHC.SLORD ---
Addendum entered and electronically signed by Yelena Luciano MA, [facility]PROCESS HELPER 08/18/22 17:10: D.S. Original Note: Addendum entered and electronically signed by KAI Estrada 08/18/22 17:08: Confirmed w/ attending hospitalist that PROCESS HELPER will check in tomorrow morning to determine if bedside swallow evaluation is needed. Original Note: Speech Language Pathology Order Status: Attempted to see pt for bedside swallow evaluation late afternoon. Pt was away for MRI. Per clearance coordinator notes, pt passed RN swallow screen on 08/17. Per RN, pt tolerated pills whole w/ water today taken one by one. PROCESS HELPER to perform bedside swallow evaluation tomorrow morning if needed.
--- NOTE | 2022-08-18 17:30 | PC.NURSE ---
pt passed bedside nursing swallow eval.MD Dr Gilman notified.
[2022-08-18] MEDS: traZODone HCL 50 MG TABLET PO (21:17)
[2022-08-18] MEDS: Atorvastatin Calcium 10 MG TABLET PO (21:17)
[2022-08-18] MEDS: 0.9 % Sodium Chloride Flush 3 ML SYRINGE IVFLUSH (21:20)
[2022-08-18] MEDS: cefTRIAXone sodium 1 GM in 0.9 % Sodium Chloride 50 ML IV (23:29)
[2022-08-19 03:27] VITALS: BP 110/56; PULSE 75; RESP 18; TEMP 37; O2SAT 99
[2022-08-19] MEDS: Omeprazole 20 MG CAPSULE.DR PO (06:06)
[2022-08-19] MEDS: Levothyroxine Sodium 50 MCG TABLET PO (06:06)
[2022-08-19 07:04] VITALS: BP 110/58; PULSE 75; RESP 18; TEMP 36.7; O2SAT 99
[2022-08-19] MEDS: Metoprolol Tartrate 25 MG TABLET 75 MG PO (07:46)
[2022-08-19] MEDS: busPIRone HCl 5 MG TABLET 7.5 MG PO (07:46)
[2022-08-19] MEDS: Apixaban 5 MG TABLET PO (07:46)
[2022-08-19] MEDS: Cholecalciferol (Vitamin D3) 25 MCG TABLET PO (07:47)
[2022-08-19] MEDS: Cyanocobalamin (Vitamin B-12) 1,000 MCG TABLET 1000 MCG PO (07:47)
[2022-08-19] MEDS: Artificial Tears 15 ML DROPS 1 DROP EYE-BOTH (07:47)
[2022-08-19] MEDS: 0.9 % Sodium Chloride Flush 3 ML SYRINGE IVFLUSH (07:47)
--- NOTE | 2022-08-19 11:03 | PM.CNCAR ---
History of Present Illness History of Present Illness Date of Service: 08/19/22 Chief complaint: Syncope, AMS, KASSIE Narrative: This is a cardiology consultation regarding syncope. Listed have multiple medical comorbidities including hypertension, high lipids, hypothyroidism, paroxysmal atrial fibrillation and bilateral pulmonary embolism. Patient states that she went to the mailbox area where she lives and then went back to her room. At that point in time, she apparently went on a recliner but she cannot remember any further details. Also reviewed the H&P. Apparently, patient at baseline has good memory and can not talk in full sentences without statin ring. However, she was noticed to have pronounced starter. Does not seem like she actually had any cardiac complaints like angina or shortness of breath or in fact anything along those lines. Currently, she denies any cardiac symptoms too. Review of Systems Review of Systems: Yes all other systems are reviewed and are negative Constitutional: Constitutional: Reports as per HPI and Reports no additional constitutional complaints Eyes: Eyes: Reports as per HPI and Denies no additional eye complaints ENT: Denies system reviewed and no additional complaints, except as documented and Reports as per HPI Cardiovascular: Cardiovascular: Reports as per HPI, Reports no additional cardiovascular complaints, Denies acrocyanosis, Denies cool extremities, Denies chest pain, Denies leg edema, Reports lightheadedness, Denies palpitations and Denies dyspnea Respiratory: Respiratory: Reports as per HPI, Denies no additional respiratory complaints and Denies dyspnea Gastrointestinal: Gastrointestinal: Reports as per HPI and Denies no additional gastrointestinal complaints Genitourinary: Genitourinary: Reports as per HPI Musculoskeletal: Musculoskeletal: Reports no additional musculoskeletal complaints and Reports as per HPI Integumentary/Breasts: Skin/Breast: Reports system reviewed and no additional complaints, except as docu Neurologic: Reports system reviewed and no additional complaints, except as documented and Reports as per HPI Psychiatric: Psychiatric: Reports no additional psychiatric complaints and Reports as per HPI Endocrine: Endocrine: Reports no additional endocrine complaints, Reports as per HPI and Denies palpitations Hematologic/Lymphatic: Hematologic/Lymphatic: Reports no additional hematologic/lymphatic complaints and Reports as per HPI Allergic/Immunologic: Allergic/Immunologic: Reports no additional allergic/immunologic complaints and Reports as per HPI [facility] Past Medical History Medical History Hyperlipidemia Hypertension Hypothyroidism NSTEMI (non-ST elevated myocardial infarction) Family History Family History (Updated 08/19/22 @ 11:08 by Melchor Arnold MD) Brother Heart disease Son Heart disease Social History Social History Household Members: None Housing: Assisted Living Facility Do you presently have visiting nurse or other home services: No Patient Tobacco Use Status: Never used Tobacco e-Cigarette/Vaping Use: Never Used service: No Current occupational status: unemployed and retired Meds Allergies Allergy/AdvReac Type Severity Reaction Status Date / Time From CELEXA Allergy Unknown UNKNOWN Uncoded 02/28/20 18:03 Active Medications: Current Medications Acetaminophen (Acetaminophen 325 Mg Tablet) 650 mg PO Q6H PRN PRN Reason: Pain, Mild (Pain Scale 1-3) Amlodipine Besylate (Amlodipine Besylate 5 Mg Tablet) 5 mg PO DAILY [facility]; Protocol Last Admin: 08/19/22 07:47 Dose: Not Given Apixaban (Apixaban 5 Mg Tablet) 5 mg PO BID [facility] Last Admin: 08/19/22 07:46 Dose: 5 mg Artificial Tears (Artificial Tears 15 Ml Drops) 1 drop EYE-BOTH BID [facility] Last Admin: 08/19/22 07:47 Dose: 1 drop Atorvastatin Calcium (Atorvastatin Calcium 10 Mg Tablet) 10 mg PO BEDTIME [facility] Last Admin: 08/18/22 21:17 Dose: 10 mg Buspirone HCl (Buspirone Hcl 5 Mg Tablet) 7.5 mg PO BID [facility] Last Admin: 08/19/22 07:46 Dose: 7.5 mg Cyanocobalamin (Cyanocobalamin (Vitamin B-12) 1,000 Mcg Tablet) 1,000 mcg PO DAILY [facility] Last Admin: 08/19/22 07:47 Dose: 1,000 mcg Docusate Sodium (Docusate Sodium 100 Mg Capsule) 100 mg PO DAILY PRN PRN Reason: Constipation Ceftriaxone Sodium 1 gm/ (Sodium Chloride) 50 mls @ 100 mls/hr IV Q24H [facility] Last Infusion: 08/19/22 00:02 Dose: Infused Levothyroxine Sodium (Levothyroxine Sodium 50 Mcg Tablet) 50 mcg PO DAILY@0600 [facility] Last Admin: 08/19/22 06:06 Dose: 50 mcg Metoprolol Tartrate (Metoprolol Tartrate 25 Mg Tablet) 75 mg PO BID [facility]; Protocol Last Admin: 08/19/22 07:46 Dose: 75 mg Omeprazole (Omeprazole 20 Mg Capsule.Dr) 20 mg PO DAILY@0630 [facility] Last Admin: 08/19/22 06:06 Dose: 20 mg Ondansetron HCl (Ondansetron Hcl 4 Mg/2 Ml Vial) 4 mg IVPUSH Q8H PRN PRN Reason: Nausea and Vomiting Pharmacy Consult (Consult Rx Perform Med Rec) 1 each MISCELLANE ONCE PRN PRN Reason: Consult order Sodium Chloride (0.9 % Sodium Chloride Flush 3 Ml Syringe) 3 ml IVFLUSH QSHIFT [facility] Last Admin: 08/19/22 07:47 Dose: 3 ml Trazodone HCl (Trazodone Hcl 50 Mg Tablet) 50 mg PO BEDTIME [facility] Last Admin: 08/18/22 21:17 Dose: 50 mg Vitamin D (Cholecalciferol (Vitamin D3) 25 Mcg Tablet) 25 mcg PO DAILY [facility] Last Admin: 08/19/22 07:47 Dose: 25 mcg Home Medications Medication Instructions Recorded Confirmed Last Taken Type cholecalciferol (vitamin D3) 25 25 mcg PO DAILY 05/23/20 08/17/22 08/17/22 History mcg (1,000 unit) tablet (Vitamin D3) levothyroxine 50 mcg tablet 50 mcg PO DAILY 05/23/20 08/17/22 08/17/22 History lisinopril 20 mg tablet 20 mg PO DAILY 05/23/20 08/17/22 08/17/22 History pantoprazole 20 mg tablet,delayed 20 mg PO DAILY 05/23/20 08/17/22 05/23/20 History release polyvinyl alcohol 1.4 % eye drops 1 drp ophthalmic (eye) BID 05/23/20 08/17/22 05/23/20 History (Artificial Tears (polyvinyl alcohol)) trazodone 50 mg tablet 50 mg PO BEDTIME 05/23/20 08/17/22 08/16/22 History apixaban 5 mg tablet (Eliquis) 5 mg PO BID 08/17/22 08/17/22 08/17/22 History buspirone 7.5 mg tablet 7.5 mg PO BID 08/17/22 08/17/22 08/17/22 History camphor-menthol 0.5 %-0.5 % lotion 1 appl topical TID 08/17/22 08/17/22 08/17/22 History (Sarna Original) cyanocobalamin (vitamin B-12) 1,000 mcg PO DAILY 08/17/22 08/17/22 08/17/22 History 1,000 mcg tablet (Vitamin B-12) hydrochlorothiazide 25 mg tablet 25 mg PO DAILY 08/17/22 08/17/22 08/17/22 History metoprolol tartrate 50 mg tablet 75 mg PO BID 08/17/22 08/17/22 08/17/22 History (Lopressor) simvastatin 20 mg tablet 20 mg PO BEDTIME 08/17/22 08/17/22 08/16/22 History Physical Exam Vital Signs: Vital Signs: Last Vital Signs Temp 98.1 F 08/19/22 07:04 Pulse 75 08/19/22 07:04 Resp 18 08/19/22 07:04 BP 110/58 L 08/19/22 07:04 Pulse Ox 99 08/19/22 07:04 O2 Del Method 08/19/22 07:04 BMI result Body Mass Index 31.1 Const: General: comfortable and no acute distress Orientation/consciousness: patient oriented x3 HEENT: Other: Unremarkable Head: Yes normal to inspection Neck: Neck: Yes normal visual inspection Chest: Chest palpation & inspection: normal inspection of the chest Resp: Auscultation: clear to auscultation bilaterally Cardio: Palpation: normal PMI Heart sounds: S1 normal heart sound present, S2 normal heart sound present, no gallops, no murmurs and no rubs GI: Palpation (GI): Soft to palpation Back/Spine/Pelvis: Other: unremarkable Skin: General skin exam: no rashes or lesions noted Neuro: General: patient oriented x3 Extrem: General: Yes normal to inspection Psych: Mental Status: mental status grossly normal Objective Labs and Meds 08/17/22 14:39 08/18/22 07:54 ECG Interpretation: EKG shows baseline artifact. Underlying sinus rhythm, 71/Min; leftward axis; nonspecific ST-T changes. ER Imaging Radiologist's impression: Impressions Brain MRI 08/18/22 17:00 IMPRESSION: 1. No acute intracranial abnormalities. 2. Moderate underlying microangiopathy and generalized cerebral volume loss. Assessment and Plan (1) Syncope: Status: Acute Plan Baseline EKG is unremarkable. Blood pressures have been generally stable. Do not see any acute hypertension or hypotension. Telemetry is also not showing any clear-cut Luis arrhythmias or tachy arrhythmias. Normal sinus rhythm only. In the echocardiogram, LVEF 65%. Mild valvular calcifications. MRI brain has been reported to have no acute abnormalities. Moderate underlying microangiopathy. EEG is pending. Overall, no clear-cut cardiac etiology for symptoms at this time. Could consider 30 day monitor as an outpatient. Discussed with Dr. Rodney. Time Spent With Patient Time: Total time managing care of this patient today ____ minutes. Procedures Date of Service Date of Service: 08/19/22
--- NOTE | 2022-08-19 11:40 | PM.DS ---
DS: Providers Provider Date of Service: 08/19/22 Date of admission: 08/17/22 17:33 Date of discharge: 08/19/22 Primary care physician: Unknown Physician Consults: 08/17/22 17:32 Consult to Neurology Routine Consulting Provider: [facility] Reason for consultation: Syncopy, AMS, dysarthria 08/18/22 15:53 Consult to Cardiology Routine Consulting Provider: [facility] Reason for consultation: syncope -neurocardiogenic Has provider been notified: No DS: Diagnosis Discharge Diagnosis (1) Syncope: Status: Acute (2) UTI (urinary tract infection): Status: Acute (3) Toxic metabolic encephalopathy: Status: Acute (4) Altered mental status: Status: Acute (5) Dysarthria and anarthria: Status: Acute (6) Obesity: Status: Acute DS: Summary Hospital Course Hospital Course: 82-year-old female with a PMH significant for?HTN, HLD, hypothyroidism, paroxysmal AFib, and hx of bilateral PE on 05/29/2020 who presents to the ED after being found unarousable at [facility]. Pt having difficulty speaking at time of interview and unable to relate events from the day.? Responds very slowly with a pronounced stutter that sometimes prevents answering questions. Spoke with the son over telephone and he states that his mother at baseline has a good memory, and can talk in full sentences without stuttering.? Says he has never seen his mother like this before. Son notes that his mother was able to tell him what happened to her today when he visited her in the ED. 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 Today she was praying for her granddaughter, whose birthday it is. After she was done she turned around and saw a vision of her son, the father of her granddaughter who last year in September, in the doorway. She was then in shock , could feel her heart racing, and found she could not speak. Went back to her room to buy a stamp to send out a birthday card and then passed out. She next remembers waking up in the hospital still unable to speak. Staff at the facility say they found the pt slumped over to her side in her room, non-responsive. Pt states her only complaints are a headache since this morning and her dysarthria. Denies chest pain/pressure, SOB. No abdominal pain.? Complains of chronic numbness, tingling, and swelling in legs and feet bilaterally. In the ED labs were significant for H&H of 11.4/36.6, BUN elevated at 29, creatinine 1.72 (baseline 1.20), and creatinine kinase 261. UA pending. CXR showed minimal right apical atelectasis. CT?of head showed no acute intracranial pathology.? CTA showed no evidence of acute intracranial hemorrhage or edematous territorial infarction. Moderate underlying micro angiopathy and generalized cerebral volume loss.? No proximal occlusion or flow limiting stenosis. EKG demonstrated normal sinus rhythm with PACs without evidence of ST elevations or depressions. Pt was treated with IVF. Pt will be admitted to observation for treatment and further evaluation of syncopal episode. Hospital course: Patient was admitted for possible syncope and speech abnormality, acute kidney injury: Subsequently patient was monitored on telemetry, also hydrated for acute kidney injury and neurological workup including beer in MRI and heart echo was done which seems to be fine. Patient also had toxic metabolic encephalopathy multifactorial(decreased p.o. intake, KASSIE)-mental status seems to be improved to baseline. Patient was seen by neurologist-says the workup seems fine and patient is back to her baseline, EEG also fine. Syncope etiology unclear-Cardiology also saw the patient-since heart monitoring on the floor was fine, heart echo is also fine(please see imaging section for full report.). patient is to follow-up out patiently for panel monitor if needed. Obesity: encouraged to lose weight. htn -blood pressure seem fine , continue metoprolol,hctz , hold lisinopril for 2 days and repeat renal function and electrolytes(due to recent kassie) with pcp before strating lisinopril. plan: Follow-up with Cardiology out patiently for possible outpatient panel monitor. Further syncope workup out patiently if needed as per PCP. Encouraged for hydration and encouraged to lose weight. htn -blood pressure seem fine , continue metoprolol,hctz , hold lisinopril for 2 days and repeat renal function and electrolytes(due to recent kassie) with pcp before strating lisinopril. Monitor blood pressure closely. If needed than can reintroduce amlodipine for now we have stopped the amlodipine. Time Spent with Patient Time attestation: Total time managing care of this patient today ____ minutes. Discharge coordination time: Greater than 30 minutes Quality: Safe Use of Opioids Does Pt have an Active Cancer Diagnosis on the Problem List?: No Quality: Stroke Does the patient have a stroke diagnosis?: No Physical Exam Vital Signs: Vital Signs: Last Vital Signs Temp 98.1 F 08/19/22 07:04 Pulse 75 08/19/22 07:04 Resp 18 08/19/22 07:04 BP 110/58 L 08/19/22 07:04 Pulse Ox 99 08/19/22 07:04 O2 Del Method 08/19/22 07:04 BMI result Body Mass Index 31.1 General: AOx3, no acute distress. Resp: CTA bilaterally CVS: S1, S2, RRR GI: +BS, NT, no distention Skin: No rash Neuro:aox3 ,nonfocal. Extremities: no cyanosis or edema DS: Data Imaging Chest x-ray: Radiologist's impression: ITS Impressions Head CT 08/17/22 14:10 IMPRESSION: No acute intracranial pathology. This critical result was discussed with Flavio Tamayo on 08/17/2022, 2:30 PM and it was ascertained that the content and urgency of the report was understood at the time of direct communication. Head/Neck CTA 08/17/22 14:19 IMPRESSION: 1. No evidence of acute intracranial hemorrhage or edematous territorial infarction. Moderate underlying microangiopathy and generalized cerebral volume loss. 2. CTA of the head and neck without proximal occlusion or flow-limiting stenosis. This critical result was discussed with SHWETA Francis at 14:50 on 08/17/2022 and it was ascertained that the content and urgency of the report was understood at the time of direct communication. Chest X-Ray 08/17/22 14:30 IMPRESSION: Minimal right apical atelectasis. Otherwise clear lungs. Brain MRI 08/18/22 17:00 IMPRESSION: 1. No acute intracranial abnormalities. 2. Moderate underlying microangiopathy and generalized cerebral volume loss. Additional Comments Additional comments: echo: Conclusions: - The left ventricular systolic function is normal.? The ? calculated ejection fraction is 64% by biplane method. ? - There is mild calcification of the aortic valve. ? - There is mild mitral annular calcification.? - There is mild tricuspid valve regurgitation. ? Findings Left Ventricle Normal left ventricular cavity size.? There is normal left ventricular wall thickness.? The left ventricular systolic function is normal.? The calculated ejection fraction is 64% by biplane method.? There is no evidence of regional wall motion abnormalities.? Diastolic function is normal for age.? LV peak GLS -19.3%. Right Ventricle Normal right ventricular cavity size.? There is low normal right ventricular systolic function. Atria Both atria are normal in size. Aortic Valve There is a normal trileaflet aortic valve.? There is mild calcification of the aortic valve.? There is no aortic valve stenosis.? There is trace (trivial) aortic valve regurgitation. Mitral Valve There is mild mitral annular calcification.? There is no mitral valve regurgitation.? There is no mitral valve stenosis. Pulmonic Valve There is trace pulmonic valve regurgitation. Tricuspid Valve There is mild tricuspid valve regurgitation.? There is no evidence of pulmonary hypertension. Great Vessels The asc aorta is normal in size. Venous The inferior vena cava is normal in size and collapses less than 50% with inspiration. Pericardium/Pleural There is no evidence of pericardial effusion. Prior Study Comparison Changes noted compared to prior study dated:? 05/26/2020.? See comments on tricuspid regurgitation/pulmonary HTN. Discharge Plan Discharge Anticipated Discharge Date/Time: 08/19/22 11:20 Patient Disposition: Home, Self-Care Discharge Diagnosis: Possible syncopal unclear etiology . Referrals: Physician,Unknown J [Primary Care Provider] - 1 Week Discharge Medications: New cefuroxime axetil 250 mg tablet 250 mg PO Q12H Qty: 10 0RF Continued trazodone 50 mg Tablet 50 mg PO BEDTIME cholecalciferol (vitamin D3) [Vitamin D3] 25 mcg (1,000 unit) Tablet 25 mcg PO DAILY polyvinyl alcohol [Artificial Tears (polyvin alc)] 1.4 % Drops 1 drp OPHTHALMIC (EYE) BID pantoprazole 20 mg Tablet,Delayed Release (Dr/Ec) 20 mg PO DAILY levothyroxine 50 mcg Tablet 50 mcg PO DAILY cyanocobalamin (vitamin B-12) [Vitamin B-12] 1,000 mcg Tablet 1,000 mcg PO DAILY simvastatin 20 mg Tablet 20 mg PO BEDTIME metoprolol tartrate [Lopressor] 50 mg Tablet 75 mg PO BID buspirone 7.5 mg Tablet 7.5 mg PO BID Sarna Original 0.5-0.5 % Lotion 1 appl TOPICAL TID hydrochlorothiazide 25 mg Tablet 25 mg PO DAILY Eliquis 5 mg Tablet 5 mg PO BID Held lisinopril 20 mg Tablet 20 mg PO DAILY Hold Instructions: Resume on 08/22/22. Discontinued amlodipine 10 mg Tablet 10 mg PO DAILY Qty: 30 0RF Protocol: Hold for SBP< HOLD for SBP < : 90 Discharge Orders: Discharge Order (Routine); Ordered 08/19/22 Ordered By: Curtis Rodney Diet: Advance to usual diet Activity on Discharge: As tolerated Stand Alone Forms: Patient Portal Discharge page Care Plan Goals: Patient was admitted for possible passing out episode and speech abnormality, acute kidney injury: Subsequently patient was monitored on telemetry, also hydrated for acute kidney injury and neurological workup including beer in MRI and heart echo was done which seems to be fine. Patient also had toxic metabolic encephalopathy multifactorial(decreased p.o. intake, KASSIE)-mental status seems to be improved to baseline. Patient was seen by neurologist-says the workup seems fine and patient is back to her baseline, EEG done pending Cardiology also saw the patient-since heart monitoring on the floor was fine, heart echo is also fine-patient is to follow-up out patiently for panel monitor if needed. concern of uti : added antibiotics -please complete the course. Health Concerns: As above. Plan of Treatment: As above. Assessment: As above.
--- NOTE | 2022-08-19 12:36 | MHC.CM.PN ---
Patient has been medically cleared for dc to home today, self care.
--- NOTE | 2022-08-19 13:21 | MHC.SL.SWA ---
Speech Pathologist Impression: Risk of Aspiration Due to: Neurological Condition Dysphasia Diet Status: Liquid Consistency and Strategies for Safe Swallow: Liquid Intake Recommendation: Thin Liquid Intake Strategies: Small Sips Solid Food Consistency: Dietary Recommendations: Chopped/Advanced (NDD3) Additional Modifications to Solid Foods: Patient is fully independent and able to feed self. Diet recommendation is secondary to dentures not present in hospital, patient's c/o difficulty chewing tougher solids. Oral Medication Intake: Whole with Liquid Please contact the pharmacy regarding appropriate crushable or liquid drug formulations that are available whenever modified delivery is recommended. Compensatory Strategies and Precautions to be Taken for Safe Swallow: Sitting Upright (90 deg) Liquids from Cup Liquids from Straw Small Bites and Sips Supervision While Eating and Drinking for Safe Swallow: None Needed Foods to Avoid: Tough to chew solids Swallowing Recommended Treatments: Compens. Strategy Educat. Recommendation for Speech: Inpatient Speech Therapy Comment: Patient presents with mild oral phase dysphagia secondary to partially edentulous state and missing her dentures in hospital. All other aspects of swallow WFL, no clinical signs of aspiration. In communication interaction today, patient is not evidencing dysarthria or stuttering noted yesterday in chart, speech is clear and articulate. Recommend DOWNGRADE diet to Chopped/Advanced for ease of chewing, continue on Thin liquids with pills whole with liquid. SOAKER will f/u X1 for toleration of diet if patient remains as inpatient. BJORN MCLEAN notified of diet downgrade by secure text, discussed with nursing in person. Frequency/Duration: Date Range for Service Req: Timeline to reassess: Spray Drier Operator Helper Clinican/Clinical Fellow: No Supervisory Statement: I have reviewed and agree with the student/clinical fellow's documentation: N/A Speech Language Pathologist: Sangeetha Garcia M.A., [facility]SOAKER
[2022-08-19 15:18] VITALS: BP 133/65; PULSE 77; RESP 17; TEMP 36.5; O2SAT 97
--- NOTE | 2022-08-19 15:55 | MHC.CM.PN ---
Patient has been medically cleared for dc to home ([facility]) today, self care. DONNY spoke with SIGIFREDO Alexandre @ [facility] @ [phone] and has successfully faxed the dc summary to [facility] at [phone] per [facility]'s request(and uploaded into [employer]). DONNY has informed MD & RN that Patient's Son/Graham will arrive around 4:30 PM today to transport Patient back to [facility].
== END 2022-08-19 17:05 | disposition home or self-care (01) | DRG 640 ==
LOC: HO.ED 15:26 → HO.EDOVER 17:57 → HO.IMC 23:57
PROVIDERS: Admitting Provider Student in an Organized Health Care Education/Training Program; Emergency Provider Student in an Organized Health Care Education/Training Program; Visit Provider Internal Medicine
DX: E86.0 Dehydration (principal); G92.8 Other toxic encephalopathy; N39.0 Urinary tract infection, site not specified; N17.9 Acute kidney failure, unspecified; E78.5 Hyperlipidemia, unspecified; E03.9 Hypothyroidism, unspecified; I10 Essential (primary) hypertension; E66.9 Obesity, unspecified; Z68.31 Body mass index [BMI] 31.0-31.9, adult; R47.1 Dysarthria and anarthria; R55 Syncope and collapse; I25.2 Old myocardial infarction; Z20.822 Contact with and (suspected) exposure to COVID-19; Z86.711 Personal history of pulmonary embolism; Z88.8 Allergy status to other drugs, medicaments and biological substances; Z79.01 Long term (current) use of anticoagulants; Z79.890 Hormone replacement therapy; Z79.899 Other long term (current) drug therapy
CPT/HCPCS: 36415; 70450; 70496; 70498; 70551; 71045; 80048; 80076; 81001; 81003; 82550; 82947; 83690; 83880; 84484; 85025; 85610; 85730; 87086; 87635; 92610; 93005; 93306; 93356; 95816; 97161; 97165; 99285; J0696; Q9957; Q9967